=== PATIENT | female | born 1935 | race Caucasian/White ===

== ENCOUNTER → 2024-05-12 09:12 | Outpatient (REF) | payer MEDICARE, OTHER, SELFPAY ==
[2024-05-12 10:23] LABS: ALT (SGPT) 14 U/L (0-35); AST (SGOT) 24 U/L (14-36); Albumin 3.7 g/dl (3.5-5.0); Alkaline Phosphatase 99 U/L (38-126); Blood Urea Nitrogen 24 mg/dl (7-17); Calcium 8.9 mg/dl (8.4-10.2); Carbon Dioxide 29 mmol/L (22-30); Chloride 106 mmol/L (98-107); Glucose 136 mg/dl (70-99); HDL Cholesterol 46 mg/dl; LDL Cholesterol, Calculated 46 mg/dl; Potassium 4.3 mmol/L (3.5-5.1); Sodium 141 mmol/L (135-145); Total Bilirubin 1.1 mg/dl (0.2-1.3); Total Cholesterol 119 mg/dl (50-199); Total Protein 6.2 g/dl (6.3-8.2); Triglyceride 135 mg/dl (10-149); Very Low Density Lipoprotein 27 mg/dl (0-30); eGFR 48.94
[2024-05-12 10:44] LABS: Vitamin D, 25-OH*** 35.9 ng/mL (30-80)
[2024-05-12 10:52] LABS: TSH 1.42 uIU/ml (0.47-4.68)
[2024-05-12 11:14] LABS: Microalbumin, Random Urine 4.7 mg/dl (0.6-1.7); Microalbumin/creatinine Ratio 29.6 mg/g
[2024-05-13 10:51] LABS: Fructosamine 240 umol/L (205-285)
== END ==
LOC: REG 09:12
PROVIDERS: ATTENDING PHYSICIAN Internal Medicine; FAMILY PHYSICIAN Family Medicine
DX: E11.22 Type 2 diabetes mellitus with diabetic chronic kidney disease (principal); N18.31 Chronic kidney disease, stage 3a; E55.9 Vitamin D deficiency, unspecified
CPT/HCPCS: 36415; 80053; 80061; 82043; 82306; 82570; 82985; 83036; 84443

== ENCOUNTER → 2024-06-25 09:23 | Outpatient (REF) | payer MEDICARE, OTHER, SELFPAY ==
[2024-06-25 11:46] LABS: Blood Urea Nitrogen 23 mg/dl (7-17); Calcium 8.8 mg/dl (8.4-10.2); Carbon Dioxide 31 mmol/L (22-30); Chloride 104 mmol/L (98-107); Glucose 136 mg/dl (70-99); Potassium 4.5 mmol/L (3.5-5.1); Sodium 141 mmol/L (135-145); eGFR 44.08
[2024-06-25 12:15] LABS: TSH Reflex To Free T4 0.12 uIU/ml (0.47-4.68)
[2024-06-25 12:25] LABS: Glycohemoglobin (HgbA1c) 5.8 % (4.0-5.6)
[2024-06-25 12:43] LABS: Free T4 2.29 ng/dl (0.78-2.19)
[2024-06-25 13:41] LABS: Microalbumin, Random Urine <0.6 mg/dl (0.6-1.7)
== END ==
LOC: REG 09:23
PROVIDERS: ATTENDING PHYSICIAN Specialist; FAMILY PHYSICIAN Family Medicine
DX: N18.31 Chronic kidney disease, stage 3a (principal); E11.9 Type 2 diabetes mellitus without complications; E03.9 Hypothyroidism, unspecified
CPT/HCPCS: 36415; 80048; 82043; 82570; 83036; 84439; 84443

== ENCOUNTER 2024-07-01 10:56 | Emergency (ER) | payer MEDICARE, OTHER, SELFPAY ==
[2024-07-01 11:15] VITALS: BP 146/66
[2024-07-01 12:04] LABS: % Basophils 0.5 % (0-2); % Eosinophils 2.8 % (0-6); % Immature Granulocytes 0.2 % (0-0.5); % Lymphocytes 6.5 % (20.5-51.1); % Monocytes 8.6 % (1.7-9.3); % Neutrophils 81.4 % (42.2-75.2); Absolute Eosinophils 0.2 10^3/uL (0-0.7); Absolute Lymphocytes 0.5 10^3/uL (1.2-3.4); Absolute Monocytes 0.7 10^3/uL (0.1-0.6); Absolute Neutrophils 6.6 10^3/uL (1.4-6.5); Hematocrit 41.5 % (37.0-47.0); Hemoglobin 13.8 g/dL (12.0-16.0); Mean Corp Hgb Conc. 33.3 g/dL (33.0-37.0); Mean Corpuscular Hgb 31.2 pg (27.0-31.0); Mean Corpuscular Volume 93.9 fL (81.0-99.0); Mean Platelet Volume 9.1 fL (7.4-10.4); Nucleated Red Blood Cells % 0 %; Platelet Count 107 10^3/uL (130-400); Red Blood Cell Count 4.42 10^6/uL (4.20-5.40); Red Cell Dist. Width 13.6 % (11.5-14.5); White Blood Cell Count 8.2 10^3/uL (4.8-10.8)
[2024-07-01 12:24] LABS: ALT (SGPT) 14 U/L (0-35); AST (SGOT) 23 U/L (14-36); Albumin 3.7 g/dl (3.5-5.0); Alkaline Phosphatase 100 U/L (38-126); Blood Urea Nitrogen 20 mg/dl (7-17); Calcium 8.8 mg/dl (8.4-10.2); Carbon Dioxide 29 mmol/L (22-30); Chloride 106 mmol/L (98-107); Glucose 133 mg/dl (70-99); Potassium 4.2 mmol/L (3.5-5.1); Sodium 142 mmol/L (135-145); Total Bilirubin 1.4 mg/dl (0.2-1.3); Total Protein 6.1 g/dl (6.3-8.2); eGFR 54.87
[2024-07-01 12:28] LABS: Troponin I 0.033 ng/ml
--- NOTE | 2024-07-01 12:28 | ED.MUSCINJ ---
Addendum entered and electronically signed by Otf Singleton PA-C 07/04/24 08:05:
Urine culture with greater than 100,000 colony-forming units of E. coli. This is sensitive to ceftriaxone. Spoke with over the telephone. Sent GRIPTION to pharmacy for Omnicef 300 mg twice a day for a week.
Original Note:
HPI-Injury
General
Chief Complaint: Musculo-Skeletal Complaint
Source: patient
Exam Limitations: none
Time Seen by Provider: 07/01/24 12:14
Nursing documentation reviewed up to this point in time: agreed with
History of Present Illness-Injury
Is this injury a work related problem?: No
Is pt an associate of [facility]?: No
Initial Injury comments:
Patient to ED with complaint of BLE pain and burning. States she fell on Sunday PM while walking with walker around her bed. Denies hitting her head. SHe was unable to get self off floor so EMS was notified and she was assisted by them into bed.
SHe declined ED transfer at that time. States she woke Sunday with increased pain and burning to her legs. She was able to ambulate iwth walker and assistance from her husbannd. Symptoms became worse as the day progressed and now she feels like
she can not get herself up. No loss of sensation. No urinary symptoms. No saddle paresthesia. Brought to ED via EMS for eval. She has a history of chronic BLE pain but states this pain is much worse. Has had 3 lumbar surgeries in past, last
procedure was approx 3 years ago at [facility]. Follows with Dr. Rivera/pain management. Takes oxycodone 20mg TID but states this is now not helping. Reports left ant. chest pain since her fall. No SOB, n/v/diaphoresis. Pain does not radiate.
Past History
Past History
ED Past Medical History: COPD, HTN, Hypercholesterolemia, IDDM, Hypothyroidism, Other (Chronic kidney disease, Pancreatitis, Ileus, PSTV) and Other (Chronic lumbar radiculopathy, in pain management w/ Dr Dunaway)
ED Past Surgical History: Cholecystectomy, Orthopedic (Lumbar Laminectomy L3-5,) and Other (Only one kidney)
Social History
Tobacco: Former smoker
Alcohol: None
Personal:
Living: with family
Family History
Family History: Negative Diabetes, Hypertension or CAD
Review of Systems
Review of Systems
Allergies reviewed?: Yes
All Other Systems: ROS reviewed and negative except as documented in HPI and ROS
Constitutional: Reports no symptoms
EENT: Reports no symptoms
Respiratory: Reports no symptoms
Cardiac: Reports chest pain (reports CP since Sunday.)
ABD/GI: Reports no symptoms
: Reports no symptoms
Musculoskeletal: Reports joint pain (left knee swelling, BLE pain, left pelvic pain)
Skin: Reports no symptoms
Neurological: Reports weakness (BLE)
Psychiatric: Reports no symptoms
Musculoskeletal Injury Exam
Musculoskeletal Injury Exam
Bilateral Lower Leg:
Pain with Movement?: Moderate
Tender to palpation?: Moderate
Soft tissue swelling?: None
External deformity and angulation?: None
Joint effusion?: None
Contusion?: None
Hematoma-local bleeding into tissue?: None
Crepitus with movement?: No
Joint instability?: No
Malalignment/deformity?: No
Range of motion: Full
Distal skin color and temperature: normal-warm & good color
Capillary Refill: normal
Normal distal neurovascular exam?: Yes
Peripheral Pulses: posterior tibial (left): 3+, posterior tibial (right): 3+, dorsalis pedis (left): 3+ and dorsalis pedis (right): 3+
Phy Exam
General Physical Exam
General Presentation: well appearing and no apparent distress
General age: appears stated age
General Skin: warm and dry
General Habitus: normal
General Mental: alert
Musculoskeletal Exam
Musculoskeletal Exam: full ROM and neuro vasc intact
Skin Exam
Skin Exam: normal color, warm/dry and no rash
Psychiatric Exam
Psychiatric Exam: normal mood/affect
Injury Course
Orders/Labs/Results
Orders:
Orders
07/01/24 11:17
Electrocardiogram (*1) Urgent
Reason for Study: Other
Other Reason for Exam: fall
EKG- Treatment ONCE
07/01/24 11:56
Complete Blood Count/With Diff Urgent
Comprehensive Metabolic Panel Urgent
Troponin I Urgent
07/01/24 12:27
Dexamethasone Sod Phosphate [Decadron] 10 mg IV NOW STA
HYDROmorphone [Dilaudid] 0.5 mg IV NOW STA
Ondansetron Injectable [Zofran] 4 mg IV NOW STA
07/01/24 12:28
Knee, Left 4 or More Views [CR Knee - Left 4 Or More View*] Urgent
Comment:
Reason For Exam: fall
Lumbar Spine Complete, 4 View [CR Lumbar Spine Comp Min 4 Vw*] Urgent
Comment:
Reason For Exam: fall
Pelvis, 1 or 2 Views CR [CR Pelvis - 1 Or 2 Views ] Urgent
Comment:
Reason For Exam: fall
07/01/24 13:38
Hip, Left 2-3 Views [CR Hip - LT w/wo Pel 2-3 Vw*] Urgent
Comment:
Reason For Exam: fall
Include a pelvis x-ray?: No
07/01/24 13:45
Urinalysis Reflex To Culture Urgent
Date Specimen was Collected: 07/01/24
Time Specimen was Collected: 13:43
Urine Microscopic Reflex Cult Urgent
Urine Culture Urgent
TAHIR Source: U
Specimen Description:
Date Specimen was Collected: 07/01/24
Time Specimen was Collected: 13:43
Abnormal Lab Results
07/01/24 07/01/24
11:56 13:45
MCH 31.2 H pg
(27.0-31.0)
Plt Count 107 L 10^3/uL
(130-400)
Absolute Neuts (auto) 6.6 H 10^3/uL
(1.4-6.5)
Absolute Lymphs (auto) 0.5 L 10^3/uL
(1.2-3.4)
Absolute Monos (auto) 0.7 H 10^3/uL
(0.1-0.6)
Neutrophils % 81.4 H %
(42.2-75.2)
Lymphocytes % 6.5 L %
(20.5-51.1)
BUN 20 H mg/dl
(7-17)
Glucose 133 H mg/dl
(70-99)
Total Bilirubin 1.4 H mg/dl
(0.2-1.3)
Total Protein 6.1 L g/dl
(6.3-8.2)
Leukocyte Esterase Rfl Trace A
(Negative)
Urine Bacteria (Reflex) Many A
(Negative)
07/01/24 11:56
07/01/24 11:56
*Radiology
Radiology exam reviewed: radiology read reviewed
*Pulse Oximetry
Patient hypoxic: no
*Critical Care Note
Total Time (30-74mins, 75-104mins- exclusive of procedures): Not Applicable
Update Note
Update Note:
Improved iwth IV pain medication. Bandar to get self up own. Will discharge home. SHe will follow up with pain management in the AM
ED Attending Note
-
Portions of this chart may have been created with voice recognition software.� Occasional wrong word or��sound alike� substitutions may have occurred due to the inherent limitations of voice recognition software.
Discharge Plan
Departure
Patient Disposition: Home (Routine Discharge)
Date of Disposition: 08/27/24
Time of Disposition: 15:39
Patient with high blood pressure during this ER visit?: No
Condition: Good
Covid-19: Not Applicable
Discharge Problem:
Low back pain, Chronic leg pain
Instructions: Using Cold for Pain, Musculoskeletal Pain
Prescriptions:
New
hydromorphone [Dilaudid] 2 mg tablet
2 mg PO Q6H PRN (Reason: Pain) Qty: 7 0RF
No Action
cyclosporine [Restasis] 10 DROPS dropperette
1 drp BOTH EYES BID
carvedilol 12.5 MG tablet
25 mg PO BID
furosemide 20 MG tablet
40 mg PO DAILY
atorvastatin 40 MG tablet
40 mg PO QPM
aspirin 81 MG tablet,chewable
81 mg PO DAILY
multivitamin with folic acid [Tab-A-Isa] 1 TABLET tablet
1 tab PO DAILY
levothyroxine [Synthroid] 150 mcg Tablet
150 mcg PO MOTUWETHFRSA
levothyroxine [Synthroid] 150 mcg Tablet
225 mcg PO NEWTON
glipizide 5 mg Tablet
5 mg PO DAILY
oxycodone 20 mg Tablet
20 mg PO Q6H PRN (Reason: as needed)
cholecalciferol (vitamin D3) [Vitamin D3] 25 mcg (1,000 unit) Capsule
25 mcg PO DAILY
duloxetine [Cymbalta] 20 mg Capsule,Delayed Release(Dr/Ec)
20 - 60 mg PO HS
polyethylene glycol 3350 17 gram Powder In Packet
17 g PO DAILY Qty: 30 0RF
sucralfate 100 mg/mL Suspension
1 gm PO ACHS Qty: 300 0RF
famotidine 20 mg Tablet
20 mg PO HS Qty: 30 0RF
amoxicillin-pot clavulanate 875-125 mg tablet
1 tab PO Q12H 8 Days Qty: 16 0RF
Referrals:
Chyna Nichols DO [Family Provider] -
Janak Rivera MD [Non-Admitting Privileges] - Tomorrow
Interventions
Interventions:
*Risk Screen - Suicide Last Done: 07/01/24 11:15
*General Assessment Last Done: 07/01/24 11:15
*Neglect/Abuse Screening Last Done: 07/01/24 11:15
ED- Fall Risk Assessment Last Done: 07/01/24 16:13
*ED COVID-19 Vaccine History Last Done: 07/01/24 11:51
*Nursing Disposition Last Done: 07/01/24 16:13
ED- Cardiac Assessment Last Done: 07/01/24 11:56
ED-Musculoskeletal Assessment Last Done: 07/01/24 11:56
ED- Pulmonary Assessment Last Done: 07/01/24 11:56
Discharge Date and Time
Discharge Date/Time: 07/01/24 16:14
Print Language: ROMANIAN
[2024-07-01] MEDS: DECADRON 10 MG IV (12:34)
[2024-07-01] MEDS: ZOFRAN 4 MG IV (12:34)
[2024-07-01] MEDS: DILAUDID 0.5 MG IV (12:34)
[2024-07-01 13:04] VITALS: BP 164/64
[2024-07-01 14:14] LABS: Urine Albumin Negative (Neg - Trace); Urine Bilirubin Negative (Negative); Urine Character Clear (Clear); Urine Color Yellow; Urine Glucose Negative (Negative); Urine Ketone Negative (Negative); Urine Leukocyte Trace (Negative); Urine Nitrite Negative (Negative); Urine Occult Blood Negative (Negative); Urine Urobilinogen Negative (Neg - 1+); Urine pH 6.5 (5.0-9.0)
[2024-07-01 15:10] LABS: Urine Squamous Cell 16-20 /LPF (Few)
[2024-07-01 15:11] LABS: Urine Amorphous Seen; Urine Bacteria Many (Negative); Urine Red Blood Cell 0-2 /HPF (0-2)
[2024-07-01 15:57] VITALS: BP 167/77
== END 2024-07-01 16:14 | disposition home or self-care (01) ==
LOC: EMR 10:56
PROVIDERS: Nurse Practitioner; EMERGENCY PHYSICIAN Emergency Medicine; FAMILY PHYSICIAN Family Medicine
DX: G89.29 Other chronic pain (principal); M54.50 Low back pain, unspecified; M79.605 Pain in left leg; M79.604 Pain in right leg; W19.XXXA Unspecified fall, initial encounter; J44.9 Chronic obstructive pulmonary disease, unspecified; E11.22 Type 2 diabetes mellitus with diabetic chronic kidney disease; I12.9 Hypertensive chronic kidney disease with stage 1 through stage 4 chronic kidney disease, or unspecified chronic kidney disease; N18.9 Chronic kidney disease, unspecified; E03.9 Hypothyroidism, unspecified; E78.00 Pure hypercholesterolemia, unspecified; Z87.891 Personal history of nicotine dependence; Z90.49 Acquired absence of other specified parts of digestive tract
CPT/HCPCS: 99283; 72110; 72170; 73502; 73564; 80053; 81003; 81015; 84484; 85025; 87077; 87086; 87186; 93005

== ENCOUNTER 2024-09-25 09:51 | Emergency (ER) | payer MEDICARE, OTHER, SELFPAY ==
[2024-09-25 09:56] VITALS: BP 145/52
[2024-09-25 09:58] VITALS: BP 145/52; BMI 30.7
[2024-09-25] MEDS: DILAUDID 1 MG IM (10:46)
--- NOTE | 2024-09-25 10:46 | ED.GENMED ---
History of Present Illness
<Noe Sanders DO - Last Filed: 09/25/24 10:47>
General
Chief Complaint: Fall
Time Seen by Provider: 09/25/24 10:14
<Alia Green PA-C - Last Filed: 09/25/24 15:55>
General
Source: patient and family
Exam Limitations: none
Nursing documentation reviewed up to this point in time: agreed with
History of Present Illness
History of Present Illness:
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
htn ,hld, [place], NIDDM
here with 'whole body pain' after falling last night around 11 pm when she was in the shower. she says she tripped on the lip that is on the ground on her way into the shower and landed 'like a pretzel' on her bottom with her legs under her. she had
no LOC or head strike
she was unable to get hersel fup but her son picked her up and put her in bed
chrnoicaly she can walk only short distances
She mostly complains of lower back pain and and around her hips and pelvis and into her legs which is again the distribution of her chronic pain. She also has had some chronic swelling in the left leg specifically the knee and has seen her family
doctor for this. She actually was here in June after a trip and fall as well where she had similar complaints of her leg and back pain. She received IV pain medication and improved and was able to go home. Patient did say that she took her
oxycodone this morning which she takes every 4 hours, 20 mg. She is found over time that she has had to even take more than she is recommended because it does not seem to work as of well. She is not having any new leg weakness or incontinence,
headache or chills, neck pain since a fall
Past History
<Noe Sanders DO - Last Filed: 09/25/24 10:47>
Past History
ED Past Medical History: COPD, HTN, Hypercholesterolemia, IDDM, Hypothyroidism, Other (Chronic kidney disease, Pancreatitis, Ileus, PSTV) and Other (Chronic lumbar radiculopathy, in pain management w/ Dr Dunaway)
ED Past Surgical History: Cholecystectomy, Orthopedic (Lumbar Laminectomy L3-5,) and Other (Only one kidney)
Social History
Tobacco: Former smoker
Alcohol: None
Personal:
Living: with family
Family History
Family History: Negative Diabetes, Hypertension or CAD
Review of Systems
<Alia Green PA-C - Last Filed: 09/25/24 15:55>
Review of Systems
Allergies reviewed?: Yes
All Other Systems: Not applicable
Phy Exam
<Alia Green PA-C - Last Filed: 09/25/24 15:55>
Physical Exam
Physical Exam:
GENERAL: Alert , in no apparent distress
HEAD: NCAT
NECK: no midline tenderness, active ROM intact, no paraspinal muscle tenderness;
EYE: pupils equal and reactive, EOMs intact.
CARDIAC: Regular rate and rhythm, no edema
LUNGS: Clear breath sounds bilaterally, no acute respiratory distress, no wheezes/rales/rhonchi
ABDOMEN: Soft, ecchymosis left upper quadrant which is about 3 x 2 cm and nontender without focal tenderness, no r/g, no cvat
NEUROLOGICAL: Alert and oriented, no focal neuro deficits, CN intact, 5/5 strength, sensation intact
SKIN: Warm and dry, Small area of ecchymosis left upper abdomen, completely nontender
Back: Prior surgical incisions closed, no midline tenderness, some pain with flexion and extension, negative straight leg raise
Can move both hips, seems to have mild pain with hip flexion and rotation but able to do so
MUSCULOSKELETAL: Mild bilateral edema lower extremities left greater than right, also with maybe an effusion in her left knee or osteoarthritis changes, no erythema, no wound
PSYCH: Normal and appropriate interaction.
Course
<Noe Sanders DO - Last Filed: 09/25/24 10:47>
Orders/Labs/Results
Orders:
Orders
09/25/24 10:37
HYDROmorphone [Dilaudid] 1 mg IM NOW STA
CR Knee - Left 1 Or 2 Views Urgent
Reason For Exam: fall left knee swellig
CR Lumbar Spine 2 Or 3 Views Urgent
Reason For Exam: lower back pain after fall
Hips, Bilat 3-4 view W/AP Pelvis [CR Hips VI w/wo Pel 3-4 Vw] Urgent
Comment:
Reason For Exam: fall b/l hip and pevic pain
Include a pelvis x-ray?: Yes
Vital Signs
Initial and Last Documented VS:
Initial Vital Signs
BP
145/52
09/25/24 09:56
Last Documented Vital Signs
Temp Pulse Resp BP Pulse Ox
37.1 C 53 15 144/52 90
09/25/24 09:58 09/25/24 12:15 09/25/24 12:15 09/25/24 12:00 09/25/24 12:15
<Alia Green PA-C - Last Filed: 09/25/24 15:55>
Orders/Labs/Results
Orders:
Orders
09/25/24 10:37
HYDROmorphone [Dilaudid] 1 mg IM NOW STA
CR Knee - Left 1 Or 2 Views Urgent
Reason For Exam: fall left knee swellig
CR Lumbar Spine 2 Or 3 Views Urgent
Reason For Exam: lower back pain after fall
Hips, Bilat 3-4 view W/AP Pelvis [CR Hips VI w/wo Pel 3-4 Vw] Urgent
Comment:
Reason For Exam: fall b/l hip and pevic pain
Include a pelvis x-ray?: Yes
Vital Signs
Initial and Last Documented VS:
Initial Vital Signs
BP
145/52
09/25/24 09:56
Last Documented Vital Signs
Temp Pulse Resp BP Pulse Ox
37.1 C 53 15 144/52 90
09/25/24 09:58 09/25/24 12:15 09/25/24 12:15 09/25/24 12:00 09/25/24 12:15
<Alia Green PA-C - Last Filed: 09/25/24 15:55>
MDM/Problems Addressed
Differential Diagnosis Includes:
Arthritis, contusion, strain, fracture, arthritis, chronic pain
MDM/Problems Addressed:
88-year-old female with chronic pain on opiates presents for lower back pain wrapping around her hips and down her legs which is a chronic distribution after falling yesterday. It was a mechanical fall. She did not hit her head. She is not
anticoagulated. She was able to be helped up by her son and walked a little bit to the bed. She said this morning her pain was not controlled with her normal oxycodone so her family called 911. She minimally walks at baseline. Initially saying
to me she is not going to be able to walk however she has strength in her legs, sensations intact, able to range her hips fairly well. There was 1 area of this ecchymosis in her left upper quadrant which was completely nontender, she had no rib
tenderness. She was assessed by ED attending. It seems like a low mechanism for splenic injury and I think that the bruising is just soft tissue. He agreed. Patient was x-rayed with lumbar and hip and knee x-rays. She has prior surgical back
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 After an IM shot of Dilaudid she was able to walk unassisted with her walker to the bathroom and back.
This is at her baseline. She will be discharged home
<Alia Green PA-C - Last Filed: 09/25/24 15:55>
*Critical Care Note
Total Time (30-74mins, 75-104mins- exclusive of procedures): Not Applicable
ED Attending Note
<Noe Piter Sanders DO - Last Filed: 09/25/24 10:47>
ED Attending Note
Patient seen and examined by attending physician: Yes
I performed the substantive portion of visit, reviewed & personally made and approve the management plan that is documented in note by myself or KENNETH.: Yes
ED Attending Note:
I evaluated the patient at bedside. Although there is a focal area of ecchymosis in the left upper quadrant, she has no abdominal tenderness. She does have left greater than right lower extremity edema for which she was supposed to see lymphedema
clinic. After the fall, the pain in her back and lower extremities has worsened.
-
Portions of this chart may have been created with voice recognition software.� Occasional wrong word or��sound alike� substitutions may have occurred due to the inherent limitations of voice recognition software.
Discharge Plan
Departure
Patient Disposition: Home (Routine Discharge)
Date of Disposition: 09/25/24
Time of Disposition: 13:09
Patient with high blood pressure during this ER visit?: No
Condition: Fair
Covid-19: Not Applicable
Discharge Problem:
Fall, Chronic pain
Instructions: Low Back Pain (DC), Preventing falls in adults
Prescriptions:
No Action
cyclosporine [Restasis] 10 DROPS dropperette
1 drp BOTH EYES BID
carvedilol 12.5 MG tablet
25 mg PO BID
furosemide 20 MG tablet
40 mg PO DAILY
atorvastatin 40 MG tablet
40 mg PO QPM
aspirin 81 MG tablet,chewable
81 mg PO DAILY
multivitamin with folic acid [Tab-A-Isa] 1 TABLET tablet
1 tab PO DAILY
levothyroxine [Synthroid] 150 mcg Tablet
150 mcg PO MOTUWETHFRSA
levothyroxine [Synthroid] 150 mcg Tablet
225 mcg PO NEWTON
glipizide 5 mg Tablet
5 mg PO DAILY
oxycodone 20 mg Tablet
20 mg PO Q6H PRN (Reason: as needed)
cholecalciferol (vitamin D3) [Vitamin D3] 25 mcg (1,000 unit) Capsule
25 mcg PO DAILY
duloxetine [Cymbalta] 20 mg Capsule,Delayed Release(Dr/Ec)
20 - 60 mg PO HS
polyethylene glycol 3350 17 gram Powder In Packet
17 g PO DAILY Qty: 30 0RF
sucralfate 100 mg/mL Suspension
1 gm PO ACHS Qty: 300 0RF
famotidine 20 mg Tablet
20 mg PO HS Qty: 30 0RF
amoxicillin-pot clavulanate 875-125 mg tablet
1 tab PO Q12H 8 Days Qty: 16 0RF
hydromorphone [Dilaudid] 2 mg tablet
2 mg PO Q6H PRN (Reason: Pain) Qty: 7 0RF
cefdinir 300 mg capsule
300 mg PO BID Qty: 14 0RF
Referrals:
Chyna Nichols, [Family Provider] - Follow up in 2-3 days
Activity Restrictions/Additional Instructions:
YOU HAD A FALL BUT NO SIGNS OF SIGNIFICANT TRAUMA. YOUR XRAYS SHOW ARTHRITIC CHANGES WITHOUT FRACTURE
CONTINUE YOUR PAIN MEDICATIONS PRESCRIBED
USE YOUR WALKER
RETURN FOR ANY EMERGENCIES.
Interventions
Interventions:
*Risk Screen - Suicide Last Done: 09/25/24 09:58
*General Assessment Last Done: 09/25/24 09:58
*Neglect/Abuse Screening Last Done: 09/25/24 09:58
ED- Fall Risk Assessment Last Done: 09/25/24 09:58
*ED COVID-19 Vaccine History Last Done: 09/25/24 09:58
*Nursing Disposition Last Done: 09/25/24 13:25
ED-Musculoskeletal Assessment Last Done: 09/25/24 09:58
ED- Neurological Assessment Last Done: 09/25/24 09:58
ED-Skin Assessment Last Done: 09/25/24 09:58
Discharge Date and Time
Discharge Date/Time: 09/25/24 13:25
Print Language: TURKISH
[2024-09-25 11:19] VITALS: BP 162/62
[2024-09-25 12:00] VITALS: BP 144/52
== END 2024-09-25 13:25 | disposition home or self-care (01) ==
LOC: EMR 09:51
PROVIDERS: EMERGENCY PHYSICIAN Emergency Medicine; FAMILY PHYSICIAN Family Medicine
DX: G89.29 Other chronic pain (principal); W01.0XXA Fall on same level from slipping, tripping and stumbling without subsequent striking against object, initial encounter; I12.9 Hypertensive chronic kidney disease with stage 1 through stage 4 chronic kidney disease, or unspecified chronic kidney disease; E11.22 Type 2 diabetes mellitus with diabetic chronic kidney disease; N18.9 Chronic kidney disease, unspecified; E78.00 Pure hypercholesterolemia, unspecified; I25.2 Old myocardial infarction; E03.9 Hypothyroidism, unspecified; J44.9 Chronic obstructive pulmonary disease, unspecified; Z79.891 Long term (current) use of opiate analgesic; Z87.891 Personal history of nicotine dependence; Z90.49 Acquired absence of other specified parts of digestive tract
CPT/HCPCS: 99283; 96372; 72100; 73522; 73560

== ENCOUNTER 2024-11-04 07:24 | Outpatient (RCR) | payer MEDICARE, OTHER, SELFPAY | END 2024-11-04 23:59 | disposition home or self-care (01) | LOC: RPT 07:24 | PROVIDERS: ATTENDING PHYSICIAN Family Medicine | DX: I89.0 Lymphedema, not elsewhere classified (principal); Z73.6 Limitation of activities due to disability | CPT/HCPCS: 97163; 97530; 97760 ==

== ENCOUNTER 2024-12-03 11:15 | Outpatient (RCR) | payer MEDICARE, OTHER, SELFPAY | END 2024-12-03 12:08 | disposition home or self-care (01) | LOC: RPT 11:15 | PROVIDERS: ATTENDING PHYSICIAN Family Medicine | DX: I89.0 Lymphedema, not elsewhere classified (principal); Z73.6 Limitation of activities due to disability; R26.89 Other abnormalities of gait and mobility | CPT/HCPCS: 97140; 97530 ==

== ENCOUNTER 2025-01-03 09:52 | Emergency (ER) | payer MEDICARE, OTHER, SELFPAY ==
[2025-01-03] VITALS (7 sets, daily range): BP systolic 134–204; BP diastolic 51–82; BMI 31.6
--- NOTE | 2025-01-03 10:16 | ED.GENMED ---
History of Present Illness
<AMY Irvin - Last Filed: 01/04/25 21:05>
General
Chief Complaint: Chest Pain
Source: patient
Exam Limitations: none
Time Seen by Provider: 01/03/25 10:14
Nursing documentation reviewed up to this point in time: agreed with
History of Present Illness
History of Present Illness:
Patient is an 89-year-old female who presents to the ER for evaluation of intermittent chest pressure for the past several days associate with exertion. Today however she was short of breath with symptoms which is why she presented to the ER. She
is a patient of Dr. Westbrook of cardiology.
Past History
<AMY Irvin - Last Filed: 01/04/25 21:05>
Past History
ED Past Medical History: COPD, HTN, Hypercholesterolemia, IDDM, Hypothyroidism, Other (Chronic kidney disease, Pancreatitis, Ileus, PSTV) and Other (Chronic lumbar radiculopathy, in pain management w/ Dr Dunaway)
ED Past Surgical History: Cholecystectomy, Orthopedic (Lumbar Laminectomy L3-5,) and Other (Only one kidney)
Social History
Tobacco: Former smoker
Alcohol: None
Personal:
Living: with family
Family History
Family History: Negative Diabetes, Hypertension or CAD
Review of Systems
<AMY Irvin - Last Filed: 01/04/25 21:05>
Review of Systems
Allergies reviewed?: Yes
All Other Systems: ROS reviewed and negative except as documented in HPI and ROS
Constitutional: Reports no symptoms
Respiratory: Reports trouble breathing; Denies cough
Cardiac: Reports chest pain; Denies diaphoresis, palpitations or syncope
ABD/GI: Reports no symptoms
: Reports no symptoms
Musculoskeletal: Reports no symptoms
Skin: Reports no symptoms
Neurological: Reports no symptoms
Psychiatric: Reports no symptoms
Phy Exam
<AMY Irvin - Last Filed: 01/04/25 21:05>
General Physical Exam
General Presentation: no apparent distress
General age: appears stated age
General Skin: warm and dry
General Habitus: normal
General Hydration: appears well hydrated
Neurological Exam
Neurological Exam: alert and oriented x3
Musculoskeletal Exam
Musculoskeletal Exam: full ROM
Skin Exam
Skin Exam: normal color and warm/dry
Psychiatric Exam
Psychiatric Exam: normal mood/affect
Scores
<AMY Irvin - Last Filed: 01/04/25 21:05>
Heart Score for Chest Pain Patients
STEMI patient?: Not applicable
Course
<AMY Irvin - Last Filed: 01/04/25 21:05>
Orders/Labs/Results
Orders:
Orders
01/03/25 09:52
EKG [Electrocardiogram (*1)] Urgent
Reason for Study: Chest Pain
01/03/25 09:53
EKG- Treatment ONCE
01/03/25 10:25
IV Insert/Care/Rem.- Treatment PRN
01/03/25 10:26
Cardiac Monitoring- Treatment ONCE
CR Chest - 2 Views Urgent
Comment:
Reason For Exam: cp/sob
01/03/25 10:29
Complete Blood Count/With Diff Urgent
Comprehensive Metabolic Panel Urgent
NT-proBNP Urgent
Troponin I Urgent
01/03/25 12:49
Venous Doppler Lwr Ext Bilat [US Periph Venous LOWER Ext Derrick] Urgent
Comment:
Reason For Exam: swelling
01/03/25 13:33
DDimer [D-Dimer] Urgent
Troponin I Urgent
01/03/25 15:07
CT Chest PE Study Urgent
Comment:
Reason For Exam: sob/cp
Abnormal Lab Results
01/03/25 01/03/25
10:29 13:33
MCHC 32.1 L g/dL
(33.0-37.0)
Plt Count 105 L 10^3/uL
(130-400)
Absolute Lymphs (auto) 0.5 L 10^3/uL
(1.2-3.4)
Neutrophils % 83.1 H %
(42.2-75.2)
Lymphocytes % 7.3 L %
(20.5-51.1)
D-Dimer 1.69 H ug/mlFEU
(0.00-0.50)
BUN 23 H mg/dl
(7-17)
Creatinine 1.2 H mg/dL
(0.6-1.0)
Glucose 229 H mg/dl
(70-99)
Total Protein 5.9 L g/dl
(6.3-8.2)
Albumin 3.4 L g/dl
(3.5-5.0)
01/03/25 10:29
01/03/25 10:29
Vital Signs
Initial and Last Documented VS:
Initial Vital Signs
Temp Pulse Resp BP Pulse Ox
98.4 F 64 16 145/54 95
01/03/25 10:00 01/03/25 10:00 01/03/25 10:00 01/03/25 10:00 01/03/25 10:00
Last Documented Vital Signs
Temp Pulse Resp BP Pulse Ox
98.4 F 61 16 180/62 95
01/03/25 10:00 01/03/25 16:30 01/03/25 16:30 01/03/25 16:00 01/03/25 10:00
<Victor Hugo West MD - Last Filed: 01/03/25 13:23>
Orders/Labs/Results
Orders:
Orders
01/03/25 09:52
EKG [Electrocardiogram (*1)] Urgent
Reason for Study: Chest Pain
01/03/25 09:53
EKG- Treatment ONCE
01/03/25 10:25
IV Insert/Care/Rem.- Treatment PRN
01/03/25 10:26
Cardiac Monitoring- Treatment ONCE
CR Chest - 2 Views Urgent
Comment:
Reason For Exam: cp/sob
01/03/25 10:29
Complete Blood Count/With Diff Urgent
Comprehensive Metabolic Panel Urgent
NT-proBNP Urgent
Troponin I Urgent
01/03/25 12:49
Venous Doppler Lwr Ext Bilat [US Periph Venous LOWER Ext Derrick] Urgent
Comment:
Reason For Exam: swelling
01/03/25 13:33
DDimer [D-Dimer] Urgent
Troponin I Urgent
01/03/25 15:07
CT Chest PE Study Urgent
Comment:
Reason For Exam: sob/cp
Abnormal Lab Results
01/03/25 01/03/25
10:29 13:33
MCHC 32.1 L g/dL
(33.0-37.0)
Plt Count 105 L 10^3/uL
(130-400)
Absolute Lymphs (auto) 0.5 L 10^3/uL
(1.2-3.4)
Neutrophils % 83.1 H %
(42.2-75.2)
Lymphocytes % 7.3 L %
(20.5-51.1)
D-Dimer 1.69 H ug/mlFEU
(0.00-0.50)
BUN 23 H mg/dl
(7-17)
Creatinine 1.2 H mg/dL
(0.6-1.0)
Glucose 229 H mg/dl
(70-99)
Total Protein 5.9 L g/dl
(6.3-8.2)
Albumin 3.4 L g/dl
(3.5-5.0)
01/03/25 10:29
01/03/25 10:29
Vital Signs
Initial and Last Documented VS:
Initial Vital Signs
Temp Pulse Resp BP Pulse Ox
98.4 F 64 16 145/54 95
01/03/25 10:00 01/03/25 10:00 01/03/25 10:00 01/03/25 10:00 01/03/25 10:00
Last Documented Vital Signs
Temp Pulse Resp BP Pulse Ox
98.4 F 61 16 180/62 95
01/03/25 10:00 01/03/25 16:30 01/03/25 16:30 01/03/25 16:00 01/03/25 10:00
<AMY Irvin - Last Filed: 01/04/25 21:05>
MDM/Problems Addressed
MDM/Problems Addressed:
Patient is a 89-year-old female who presented with intermittent chest pain for the past several days and had some shortness of breath this morning which prompted patient to come to the ER. Patient had a cardiac cath in 2021 which showed
nonobstructive coronary artery disease and was to continue medical management. She is followed by Dr. Westbrook, RCA showed 60% proximal stenosis and diffuse 30-40% mid stenosis. The mid to distal RCA is widely patent with only minor irregularities.
Patient presents awake alert no acute distress she was afebrile with a normal white count ;stable hemoglobin normal cardiac troponin. Patient's BNP was minimally elevated however no history of heart failure.
Patient evaluated by ED physician D-dimer ordered and elevated. CAT scan was done and unfortunately does show suspicious right middle lobe mass along with suspicious mass in the left lung apex with right hilar and mediastinal lymphadenopathy.
Likely suggestive of malignancy. There is negative PE. I did review this with patient and she is stable for discharge home with outpatient followed by oncology. In addition as discussed with physician will DC on chest pain hotline.
<AMY Irvin - Last Filed: 01/04/25 21:05>
*Radiology
Radiology exam reviewed: radiology read reviewed
*Pulse Oximetry
Patient hypoxic: no
*EKG
Interpretation: normal
Heart Rate: 63
Rate: normal
Rhythm: sinus
Ischemia: no ischemia
*Critical Care Note
Total Time (30-74mins, 75-104mins- exclusive of procedures): Not Applicable
ED Attending Note
<AMY Irvin - Last Filed: 01/04/25 21:05>
-
Portions of this chart may have been created with voice recognition software.� Occasional wrong word or��sound alike� substitutions may have occurred due to the inherent limitations of voice recognition software.
<Victor Hugo West MD - Last Filed: 01/03/25 13:23>
ED Attending Note
Patient seen and examined by attending physician: Yes
I performed the substantive portion of visit, reviewed & personally made and approve the management plan that is documented in note by myself or KENNETH.: Yes
ED Attending Note:
89-year-old female complaining of some chest tightness and some shortness of breath this morning. She gets this on almost a daily basis for the last few months. However today's episode was prolonged. Minimal symptoms at this time. History of
CAD. Followed by cardiology. She thinks she has had a stress test recently that was unremarkable.
Alert and oriented. No distress. Warm and dry. Perfusing well.
Heart: Regular rate and rhythm.
Lungs: No respiratory distress. Good pulse ox. A few crackles in the base of the lungs. No wheezing or rhonchi
Abdomen soft and nontender
Extremities: Warm and dry perfusing well. No significant edema
Impression is intermittent chest tightness with shortness of breath. Is been going on for months. Followed by cardiology. Slightly more significant symptoms this morning although comfortable at this time. Will do second troponin and EKG and if
patient remains comfortable reasonable for outpatient follow-up. Also will check D-dimer. Low suspicion for PE. Clinically not in any florid heart failure.
Discharge Plan
Departure
Patient Disposition: Home (Routine Discharge)
Date of Disposition: 01/03/25
Time of Disposition: 16:46
Patient with high blood pressure during this ER visit?: Yes
Condition: Fair
Covid-19: Not Applicable
Discharge Problem:
Chest pain
Instructions: Chest Pain DCA Follow Up
Prescriptions:
No Action
cyclosporine [Restasis] 10 DROPS dropperette
1 drp BOTH EYES BID
carvedilol 12.5 MG tablet
25 mg PO BID
furosemide 20 MG tablet
40 mg PO DAILY
atorvastatin 40 MG tablet
40 mg PO QPM
aspirin 81 MG tablet,chewable
81 mg PO DAILY
multivitamin with folic acid [Tab-A-Isa] 1 TABLET tablet
1 tab PO DAILY
levothyroxine [Synthroid] 150 mcg Tablet
150 mcg PO MOTUWETHFRSA
levothyroxine [Synthroid] 150 mcg Tablet
225 mcg PO NEWTON
glipizide 5 mg Tablet
5 mg PO DAILY
oxycodone 20 mg Tablet
20 mg PO Q6H PRN (Reason: as needed)
cholecalciferol (vitamin D3) [Vitamin D3] 25 mcg (1,000 unit) Capsule
25 mcg PO DAILY
duloxetine [Cymbalta] 20 mg Capsule,Delayed Release(Dr/Ec)
20 - 60 mg PO HS
polyethylene glycol 3350 17 gram Powder In Packet
17 g PO DAILY Qty: 30 0RF
sucralfate 100 mg/mL Suspension
1 gm PO ACHS Qty: 300 0RF
famotidine 20 mg Tablet
20 mg PO HS Qty: 30 0RF
amoxicillin-pot clavulanate 875-125 mg tablet
1 tab PO Q12H 8 Days Qty: 16 0RF
hydromorphone [Dilaudid] 2 mg tablet
2 mg PO Q6H PRN (Reason: Pain) Qty: 7 0RF
cefdinir 300 mg capsule
300 mg PO BID Qty: 14 0RF
Referrals:
Theodore Westbrook MD [Active] -
Kimberly Florian MD [Active] -
Chyna Nichols DO [Family Provider] -
Activity Restrictions/Additional Instructions:
As discussed please follow-up with oncology for further evaluation of lung mass found on your CAT scan. In addition please follow-up with cardiology.
You were placed on the cardiology hotline .
you should receive a phone call from the office in the next 2 days however if not please give the office a call to schedule an appointment as soon as possible.
Return if any worsening of symptoms
Interventions
Interventions:
*Risk Screen - Suicide Last Done: 01/03/25 10:01
*General Assessment Last Done: 01/03/25 10:20
*Neglect/Abuse Screening Last Done: 01/03/25 10:01
ED- Fall Risk Assessment Last Done: 01/03/25 10:36
*ED COVID-19 Vaccine History Last Done: 01/03/25 10:20
*Nursing Disposition Last Done: 01/03/25 17:02
ED- Cardiac Assessment Last Done: 01/03/25 10:20
Discharge Date and Time
Discharge Date/Time: 01/03/25 16:56
Print Language: ROMANIAN
[2025-01-03 10:41] LABS: % Basophils 0.4 % (0-2); % Eosinophils 1.7 % (0-6); % Immature Granulocytes 0.3 % (0-0.5); % Lymphocytes 7.3 % (20.5-51.1); % Monocytes 7.2 % (1.7-9.3); % Neutrophils 83.1 % (42.2-75.2); Absolute Eosinophils 0.1 10^3/uL (0-0.7); Absolute Lymphocytes 0.5 10^3/uL (1.2-3.4); Absolute Monocytes 0.5 10^3/uL (0.1-0.6); Absolute Neutrophils 5.9 10^3/uL (1.4-6.5); Hematocrit 42.4 % (37.0-47.0); Hemoglobin 13.6 g/dL (12.0-16.0); Mean Corp Hgb Conc. 32.1 g/dL (33.0-37.0); Mean Corpuscular Hgb 30.6 pg (27.0-31.0); Mean Corpuscular Volume 95.3 fL (81.0-99.0); Mean Platelet Volume 8.9 fL (7.4-10.4); Nucleated Red Blood Cells % 0 %; Platelet Count 105 10^3/uL (130-400); Red Blood Cell Count 4.45 10^6/uL (4.20-5.40); Red Cell Dist. Width 14.2 % (11.5-14.5); White Blood Cell Count 7.1 10^3/uL (4.8-10.8)
[2025-01-03 10:48] LABS: ALT (SGPT) 16 U/L (0-35); AST (SGOT) 22 U/L (14-36); Albumin 3.4 g/dl (3.5-5.0); Alkaline Phosphatase 99 U/L (38-126); Blood Urea Nitrogen 23 mg/dl (7-17); Calcium 8.5 mg/dl (8.4-10.2); Carbon Dioxide 29 mmol/L (22-30); Chloride 105 mmol/L (98-107); Estimated Creatinine Clearance 37 ml/min; Glucose 229 mg/dl (70-99); Potassium 4.2 mmol/L (3.5-5.1); Sodium 140 mmol/L (135-145); Total Bilirubin 1.3 mg/dl (0.2-1.3); Total Protein 5.9 g/dl (6.3-8.2); eGFR 43.81
[2025-01-03 10:59] LABS: NT-proBNP 2360 pg/ml; Troponin I < 0.012 ng/ml
[2025-01-03 14:18] LABS: D-Dimer 1.69 ug/mlFEU (0.00-0.50)
[2025-01-03 14:29] LABS: Troponin I < 0.012 ng/ml
== END 2025-01-03 16:56 | disposition home or self-care (01) ==
LOC: EMR 09:52
PROVIDERS: Nurse Practitioner; EMERGENCY PHYSICIAN Emergency Medicine; FAMILY PHYSICIAN Family Medicine
DX: R07.89 Other chest pain (principal); J44.9 Chronic obstructive pulmonary disease, unspecified; I12.9 Hypertensive chronic kidney disease with stage 1 through stage 4 chronic kidney disease, or unspecified chronic kidney disease; E11.22 Type 2 diabetes mellitus with diabetic chronic kidney disease; N18.9 Chronic kidney disease, unspecified; R06.02 Shortness of breath; E03.9 Hypothyroidism, unspecified; E78.00 Pure hypercholesterolemia, unspecified; I25.10 Atherosclerotic heart disease of native coronary artery without angina pectoris; Z79.4 Long term (current) use of insulin; Z87.891 Personal history of nicotine dependence; R91.8 Other nonspecific abnormal finding of lung field
CPT/HCPCS: 99285; 71046; 71275; 80053; 83880; 84484; 85025; 85379; 93005; 93970; Q9967

== ENCOUNTER → 2025-01-21 09:35 | Outpatient (REF) | payer MEDICARE, OTHER, SELFPAY ==
[2025-01-21 13:15] LABS: Blood Urea Nitrogen 24 mg/dl (7-17); Calcium 8.8 mg/dl (8.4-10.2); Carbon Dioxide 30 mmol/L (22-30); Chloride 104 mmol/L (98-107); Glucose 147 mg/dl (70-99); Potassium 4.6 mmol/L (3.5-5.1); Sodium 140 mmol/L (135-145); eGFR 43.81
== END ==
LOC: REG 09:35
PROVIDERS: ATTENDING PHYSICIAN Physician Assistant Medical; FAMILY PHYSICIAN Family Medicine
DX: I10 Essential (primary) hypertension (principal)
CPT/HCPCS: 36415; 80048

== ENCOUNTER → 2025-01-30 13:33 | Outpatient (REF) | payer MEDICARE, OTHER, SELFPAY | LOC: HWRCS 13:33 | PROVIDERS: ATTENDING PHYSICIAN Physician Assistant Medical; FAMILY PHYSICIAN Family Medicine | DX: R07.89 Other chest pain (principal); I25.10 Atherosclerotic heart disease of native coronary artery without angina pectoris; I10 Essential (primary) hypertension | CPT/HCPCS: 93306 ==

== ENCOUNTER → 2025-02-19 09:58 | Outpatient (REF) | payer MEDICARE, OTHER, SELFPAY | LOC: HWRAD 09:58 | PROVIDERS: ATTENDING PHYSICIAN Internal Medicine Critical Care Medicine; FAMILY PHYSICIAN Family Medicine | DX: R91.1 Solitary pulmonary nodule (principal) | CPT/HCPCS: 71250 ==

== ENCOUNTER 2025-03-02 06:17 | Day surgery (SDC) | payer MEDICARE, OTHER, SELFPAY ==
[2025-02-17 14:00] VITALS: BMI 32.2
[2025-03-02 09:00] VITALS: BP 167/64
[2025-03-02 09:10] VITALS: BMI 29.4
[2025-03-02 09:12] VITALS: BMI 29.4
[2025-03-02 09:40] LABS: Glucose - Point of Care 138 mg/dl (70-99)
[2025-03-02 11:01] VITALS: BP 167/64; BP 171/89
[2025-03-02 11:21] VITALS: BP 189/69
[2025-03-02 11:30] VITALS: BP 188/64
[2025-03-02 11:43] LABS: Glucose - Point of Care 141 mg/dl (70-99)
[2025-03-02 12:00] VITALS: BP 197/109
[2025-03-02 12:15] VITALS: BP 193/69
== END 2025-03-02 12:45 | disposition home or self-care (01) ==
LOC: SDS 06:17
PROVIDERS: ATTENDING PHYSICIAN Internal Medicine Critical Care Medicine
DX: C34.2 Malignant neoplasm of middle lobe, bronchus or lung (principal); C77.1 Secondary and unspecified malignant neoplasm of intrathoracic lymph nodes; R59.0 Localized enlarged lymph nodes
CPT/HCPCS: 31629; 31624; 31623; 31627; 31654; 31625; 31652; 88173; 88305; 71045; 76000; 82962; 88112; 88334; 88341; 88342; 94640; C1887

== ENCOUNTER 2025-03-23 10:12 | Emergency (ER) | payer MEDICARE, OTHER, SELFPAY ==
[2025-03-23 10:21] VITALS: BP 133/55
--- NOTE | 2025-03-23 12:41 | ED.GENMED ---
History of Present Illness
<Luisa Whitlock TRACKMOBILE OPERATOR - Last Filed: 03/24/25 12:17>
General
Chief Complaint: Cold/Flu/URI Symptoms
Source: patient
Exam Limitations: none
Time Seen by Provider: 03/23/25 12:40
Nursing documentation reviewed up to this point in time: agreed with
History of Present Illness
History of Present Illness:
89-year-old female with history of NIDDM, CVA, COPD, PE on aspirin only, CAD, HTN, HLD, RI, pancreatitis, PUD, renal insufficiency, CKD 3, thyroidectomy and recent diagnosis of lung CA presents for 2 days of 'hacking cough...so bad my chest hurts
and I can't get my breath.'
Daughter recently with similar cough.
Denies fever/chills, denies n/v/d/c.
Has appointment with Oncology Dr. Miller in 2 days.
Past History
<Luisa Whitlock, TRACKMOBILE OPERATOR - Last Filed: 03/24/25 12:17>
Past History
ED Past Medical History: COPD, HTN, Hypercholesterolemia, IDDM, Hypothyroidism, Other (Chronic kidney disease, Pancreatitis, Ileus, PSTV) and Other (Chronic lumbar radiculopathy, in pain management w/ Dr Dunaway)
ED Past Surgical History: Cholecystectomy, Orthopedic (Lumbar Laminectomy L3-5,) and Other (Only one kidney)
Social History
Tobacco: Former smoker
Alcohol: None
Personal:
Living: with family
Family History
Family History: Negative Diabetes, Hypertension or CAD
Review of Systems
<Luisa Whitlock TRACKMOBILE OPERATOR - Last Filed: 03/24/25 12:17>
Review of Systems
Allergies reviewed?: Yes
All Other Systems: ROS reviewed and negative except as documented in HPI and ROS
Constitutional: Denies fever or chills
EENT: Denies sore throat
Respiratory: Reports cough; Denies trouble breathing
Cardiac: Denies chest pain
ABD/GI: Denies abdominal pain, nausea, vomiting or diarrhea
: Denies dysuria or difficulty voiding
Musculoskeletal: Reports no symptoms
Skin: Reports no symptoms
Neurological: Reports no symptoms
Phy Exam
<Luisa Whitlock, TRACKMOBILE OPERATOR - Last Filed: 03/24/25 12:17>
Physical Exam
Physical Exam:
GENERAL: No acute distress. A&Ox3.
CONSTITUTIONAL: Afebrile.
EYES: clear, conjunctivae normal
ENMT: moist mucus membranes, Pharynx nl
RESPIRATORY: Regular respirations, nonlabored, lungs with few scattered expiratory wheezes. Pulse ox 94% RA
CARDIOVASCULAR: Regular rate and rhythm, no murmurs, no rubs.
GI: Soft, nontender, normal BS
MUSCULOSKELETAL: Moves with ease. Well perfused.
SKIN: Warm, dry, pink
PSYCH: Normal mood and affect. Well kept, interactive and appropriate
NEUROLOGIC: Awake, alert and oriented. No focal neurological deficits
Course
<Luisa Whitlock, TRACKMOBILE OPERATOR - Last Filed: 03/24/25 12:17>
Orders/Labs/Results
Orders:
Orders
03/23/25 10:25
Electrocardiogram (*1) Urgent
Reason for Study: Chest Pain
EKG- Treatment ONCE
03/23/25 12:51
Ipratropium/Albuterol Sulfate [Duoneb] 3 ml INH R NOW STA
03/23/25 12:57
CR Chest - 2 Views Urgent
Comment:
Reason For Exam: hacking cough recent lung Ca dx.
03/23/25 14:00
COVID-19 Antigen Urgent
Source: Nasal Swab
Influenza A+B Rapid Molecular Urgent
TAHIR Source: Nasal Swab
Specimen Description:
Vital Signs
Initial and Last Documented VS:
Initial Vital Signs
Temp Pulse Resp Pulse Ox
98.4 F 68 22 94
03/23/25 10:20 03/23/25 10:20 03/23/25 10:20 03/23/25 10:20
Last Documented Vital Signs
Temp Pulse Resp BP Pulse Ox
98.4 F 76 18 128/60 93
03/23/25 10:20 03/23/25 14:54 03/23/25 14:54 03/23/25 14:54 03/23/25 14:54
<Clari Shabazz MD - Last Filed: 03/23/25 13:52>
Orders/Labs/Results
Orders:
Orders
03/23/25 10:25
Electrocardiogram (*1) Urgent
Reason for Study: Chest Pain
EKG- Treatment ONCE
03/23/25 12:51
Ipratropium/Albuterol Sulfate [Duoneb] 3 ml INH R NOW STA
03/23/25 12:57
CR Chest - 2 Views Urgent
Comment:
Reason For Exam: hacking cough recent lung Ca dx.
03/23/25 14:00
COVID-19 Antigen Urgent
Source: Nasal Swab
Influenza A+B Rapid Molecular Urgent
TAHIR Source: Nasal Swab
Specimen Description:
Vital Signs
Initial and Last Documented VS:
Initial Vital Signs
Temp Pulse Resp Pulse Ox
98.4 F 68 22 94
03/23/25 10:20 03/23/25 10:20 03/23/25 10:20 03/23/25 10:20
Last Documented Vital Signs
Temp Pulse Resp BP Pulse Ox
98.4 F 76 18 128/60 93
03/23/25 10:20 03/23/25 14:54 03/23/25 14:54 03/23/25 14:54 03/23/25 14:54
<Luisa Whitlock, TRACKMOBILE OPERATOR - Last Filed: 03/24/25 12:17>
MDM/Problems Addressed
Differential Diagnosis Includes:
COPD exacerbation, viral URI, Covid, bronchitis
MDM/Problems Addressed:
89-year-old female with history of NIDDM, CVA, COPD, PE on aspirin only, CAD, HTN, HLD, RI, pancreatitis, PUD, renal insufficiency, CKD 3, thyroidectomy and recent diagnosis of lung CA presents for 2 days of 'hacking cough...so bad my chest hurts
and I can't get my breath.' 'They told me I have lung cancer.'
Daughter recently with similar cough.
Denies fever/chills, denies n/v/d/c.
Has appointment with Oncology Dr. Miller in 2 days.
Afebrile, NAD
No cough during initial exam, lungs with few scattered expiratory wheezes, no hypoxemia
PET scan 02/25/25 report reviewed: IMPRESSION:
1. LARGE 4.3 cm RIGHT MIDDLE LOBE LUNG CANCER.
2. LARGE METASTATIC RIGHT HILAR, RIGHT PARATRACHEAL, and SUBCARINAL LYMPH NODES.
3. 1.1 cm pulmonary metastasis or synchronous lung cancer in the left upper lobe.
4. Severe left renal atrophy.
3:00 p.m.
Chest x-ray radiology report read: Right perihilar opacity in keeping with the patient's known lung cancer.
No new focal consolidation, pleural effusion, or pneumothorax. The cardiomediastinal silhouette is stable. Chronic degenerative changes of the spine. Partially imaged lumbar fusion hardware.
COVID-negative
Influenza A and B neg
Patient has had no significant coughing spells during this admission.
<Luisa Whitlock, TRACKMOBILE OPERATOR - Last Filed: 03/24/25 12:17>
*EKG
EKG Intrepretation Date: 03/23/25
Interpretation: abnormal
Heart Rate: 62
Rate: normal
Rhythm: sinus
[place]: normal axis
Interval: normal interval
QRS Pattern: normal QRS
Ischemia: non-specific ST changes
*Critical Care Note
Total Time (30-74mins, 75-104mins- exclusive of procedures): Not Applicable
ED Attending Note
<Luisa Whitlock NP - Last Filed: 03/24/25 12:17>
-
Portions of this chart may have been created with voice recognition software.� Occasional wrong word or��sound alike� substitutions may have occurred due to the inherent limitations of voice recognition software.
<Clari Shabazz MD - Last Filed: 03/23/25 13:52>
ED Attending Note
Patient seen and examined by attending physician: Yes
I performed the substantive portion of visit, reviewed & personally made and approve the management plan that is documented in note by myself or KENNETH.: Yes
ED Attending Note:
Patient appears nontoxic, smiling conversational. No sign of respiratory distress. Decreased breath sounds bilaterally. No wheezing or crackles.
Discharge Plan
Departure
Patient Disposition: Home (Routine Discharge)
Date of Disposition: 03/23/25
Time of Disposition: 15:00
Patient with high blood pressure during this ER visit?: No
Condition: Good
Discharge Problem:
Coughing, Lung cancer
Instructions: Lung cancer, Cough in adults
Prescriptions:
No Action
cyclosporine [Restasis] 10 DROPS dropperette
1 drp BOTH EYES BID
atorvastatin 40 MG tablet
40 mg PO QPM
levothyroxine [Synthroid] 150 mcg Tablet
150 mcg PO MOTUWETHFRSA
levothyroxine [Synthroid] 150 mcg Tablet
300 mcg PO NEWTON
glipizide 5 mg Tablet
5 mg PO HS
oxycodone 20 mg Tablet
20 mg PO Q4H PRN (Reason: pain)
multivitamin Tablet
1 tab PO DAILY
furosemide 40 mg Tablet
40 mg PO DAILY
carvedilol 25 mg Tablet
25 mg PO BID
losartan 25 mg Tablet
25 mg PO DAILY
Trelegy Ellipta 200-62.5-25 mcg Blister With Device
1 inh INHALATION DAILY
aspirin 81 mg Capsule
81 mg PO DAILY
docusate sodium [Colace] 100 mg Capsule
100 mg PO Q48H
Referrals:
Maria Fernanda Miller MD [Active] - Keep scheduled appt
Chyna Nichols DO [Family Provider] -
Activity Restrictions/Additional Instructions:
As we discussed, your x-ray shows no new pneumonia or any other new findings
I reviewed your scan from February and it does confirm that you have lung cancer.
Mentholated cough drops may help your cough
Keep your appointment with your oncologist in 2 days
Interventions
Interventions:
*Risk Screen - Suicide Last Done: 03/23/25 15:22
*General Assessment Last Done: 03/23/25 13:54
*Neglect/Abuse Screening Last Done: 03/23/25 15:21
*ED- Fall Risk Assessment Last Done: 03/23/25 13:54
*ED COVID-19 Vaccine History Last Done: 03/23/25 13:54
*Nursing Disposition Last Done: 03/23/25 15:21
ED- Pulmonary Assessment Last Done: 03/23/25 14:54
Discharge Date and Time
Discharge Date/Time: 03/23/25 15:22
Print Language: TUVALUAN
--- NOTE | 2025-03-23 13:25 | EDRN ---
Pt in [place] at this time.
[2025-03-23 13:53] VITALS: BMI 29.7
[2025-03-23 13:57] VITALS: BP 149/61
[2025-03-23] MEDS: DUONEB 3 ML INH (13:59)
[2025-03-23 14:35] LABS: COVID-19 Antigen Negative (Negative)
[2025-03-23 14:54] VITALS: BP 128/60
--- NOTE | 2025-03-23 15:15 | EDRN ---
Margo Whitlock EDGING MACHINE OPERATOR in to speak w/ pt.
== END 2025-03-23 15:22 | disposition home or self-care (01) ==
LOC: EMR 10:12
PROVIDERS: Registered Nurse; EMERGENCY PHYSICIAN Emergency Medicine; FAMILY PHYSICIAN Family Medicine
DX: C34.90 Malignant neoplasm of unspecified part of unspecified bronchus or lung (principal); R05.9 Cough, unspecified; E03.9 Hypothyroidism, unspecified; E11.22 Type 2 diabetes mellitus with diabetic chronic kidney disease; I12.9 Hypertensive chronic kidney disease with stage 1 through stage 4 chronic kidney disease, or unspecified chronic kidney disease; N18.30 Chronic kidney disease, stage 3 unspecified; J44.9 Chronic obstructive pulmonary disease, unspecified; I25.10 Atherosclerotic heart disease of native coronary artery without angina pectoris; Z86.73 Personal history of transient ischemic attack (TIA), and cerebral infarction without residual deficits; Z87.891 Personal history of nicotine dependence; Z87.11 Personal history of peptic ulcer disease; Z11.52 Encounter for screening for COVID-19
CPT/HCPCS: 99285; 94640; 71046; 87502; 87811; 93005

== ENCOUNTER → 2025-04-13 08:47 | Outpatient (REF) | payer MEDICARE, OTHER, SELFPAY ==
[2025-04-13 09:31] LABS: % Basophils 0.1 % (0-2); % Eosinophils 0.6 % (0-6); % Lymphocytes 9.4 % (20.5-51.1); % Monocytes 7.7 % (1.7-9.3); % Neutrophils 81.2 % (42.2-75.2); Absolute Eosinophils 0.1 10^3/uL (0-0.7); Absolute Immature Granulocytes 0.1 10^3/uL (0-0.05); Absolute Lymphocytes 0.8 10^3/uL (1.2-3.4); Absolute Monocytes 0.7 10^3/uL (0.1-0.6); Absolute Neutrophils 7.1 10^3/uL (1.4-6.5); Hematocrit 39.7 % (37.0-47.0); Hemoglobin 12.7 g/dL (12.0-16.0); Mean Corpuscular Hgb 30.5 pg (27.0-31.0); Mean Corpuscular Volume 95.2 fL (81.0-99.0); Mean Platelet Volume 9.2 fL (7.4-10.4); Nucleated Red Blood Cells % 0 %; Platelet Count 108 10^3/uL (130-400); Red Blood Cell Count 4.17 10^6/uL (4.20-5.40); Red Cell Dist. Width 15.1 % (11.5-14.5); White Blood Cell Count 8.7 10^3/uL (4.8-10.8)
[2025-04-13 09:58] LABS: ALT (SGPT) 16 U/L (0-35); AST (SGOT) 19 U/L (14-36); Albumin 2.9 g/dl (3.5-5.0); Alkaline Phosphatase 77 U/L (38-126); Blood Urea Nitrogen 36 mg/dl (7-17); Calcium 7.8 mg/dl (8.4-10.2); Carbon Dioxide 33 mmol/L (22-30); Chloride 107 mmol/L (98-107); Glucose 98 mg/dl (70-99); Potassium 4.4 mmol/L (3.5-5.1); Sodium 140 mmol/L (135-145); Total Bilirubin 0.8 mg/dl (0.2-1.3); Total Protein 5.3 g/dl (6.3-8.2); eGFR 33.52
[2025-04-13 10:25] LABS: TSH 1.43 uIU/ml (0.47-4.68)
== END ==
LOC: REG 08:47
PROVIDERS: ATTENDING PHYSICIAN Internal Medicine Hematology & Oncology; FAMILY PHYSICIAN Family Medicine
DX: R91.1 Solitary pulmonary nodule (principal); C34.11 Malignant neoplasm of upper lobe, right bronchus or lung; E03.9 Hypothyroidism, unspecified
CPT/HCPCS: 36415; 80053; 84443; 85025

== ENCOUNTER → 2025-05-07 08:39 | Outpatient (REF) | payer MEDICARE, OTHER, SELFPAY ==
[2025-05-07 09:18] LABS: Hematocrit 36.5 % (37.0-47.0); Hemoglobin 11.5 g/dL (12.0-16.0); Mean Corp Hgb Conc. 31.5 g/dL (33.0-37.0); Mean Corpuscular Volume 95.5 fL (81.0-99.0); Nucleated Red Blood Cells % 0 %; Platelet Count 165 10^3/uL (130-400); Red Cell Dist. Width 15.3 % (11.5-14.5)
[2025-05-07 11:11] LABS: ALT (SGPT) 13 U/L (0-35); AST (SGOT) 20 U/L (14-36); Albumin 3.0 g/dl (3.5-5.0); Alkaline Phosphatase 86 U/L (38-126); Blood Urea Nitrogen 20 mg/dl (7-17); Calcium 8.5 mg/dl (8.4-10.2); Carbon Dioxide 30 mmol/L (22-30); Chloride 109 mmol/L (98-107); Glucose 145 mg/dl (70-99); Potassium 4.1 mmol/L (3.5-5.1); Sodium 141 mmol/L (135-145); Total Protein 5.7 g/dl (6.3-8.2); eGFR 48.63
[2025-05-07 11:27] LABS: TSH 2.23 uIU/ml (0.47-4.68)
== END ==
LOC: REG 08:39
PROVIDERS: ATTENDING PHYSICIAN Internal Medicine Hematology & Oncology; FAMILY PHYSICIAN Family Medicine
DX: R91.1 Solitary pulmonary nodule (principal); C34.11 Malignant neoplasm of upper lobe, right bronchus or lung; E03.9 Hypothyroidism, unspecified
CPT/HCPCS: 36415; 80053; 84443; 85025

== ENCOUNTER 2025-05-09 16:28 | Inpatient (IN) | payer MEDICARE, OTHER, SELFPAY ==
[2025-05-09] VITALS (11 sets, daily range): BP systolic 147–191; BP diastolic 63–90; BMI 30.2; BMI 29.1
[2025-05-09 09:11] LABS: Hematocrit 37.9 % (37.0-47.0); Hemoglobin 12.2 g/dL (12.0-16.0); Mean Corp Hgb Conc. 32.2 g/dL (33.0-37.0); Mean Corpuscular Volume 95.5 fL (81.0-99.0); Nucleated Red Blood Cells % 0 %; Platelet Count 174 10^3/uL (130-400); Red Cell Dist. Width 15.4 % (11.5-14.5)
[2025-05-09 09:36] LABS: ALT (SGPT) 13 U/L (0-35); AST (SGOT) 18 U/L (14-36); Albumin 3.1 g/dl (3.5-5.0); Alkaline Phosphatase 89 U/L (38-126); Blood Urea Nitrogen 28 mg/dl (7-17); Calcium 8.7 mg/dl (8.4-10.2); Carbon Dioxide 30 mmol/L (22-30); Chloride 112 mmol/L (98-107); Estimated Creatinine Clearance 36 ml/min; Glucose 161 mg/dl (70-99); Potassium 4.3 mmol/L (3.5-5.1); Sodium 143 mmol/L (135-145); Total Protein 6.0 g/dl (6.3-8.2); eGFR 43.81
--- NOTE | 2025-05-09 09:41 | ED.GENMED ---
History of Present Illness
General
Chief Complaint: Chest Pain
Time Seen by Provider: 05/09/25 09:10
History of Present Illness
History of Present Illness:
89-year-old female presents the emergency department for evaluation of chest pain and cough that began last night during fireworks. She states it feels similar to presentation from approximately 6 weeks ago at which time she was diagnosed with a
new lung cancer. She is on immunotherapy and follows with [facility]. She reports the symptoms are described as pressure at this point. Denies dyspnea. Not on thinners
Past History
Past History
ED Past Medical History: COPD, HTN, Hypercholesterolemia, IDDM, Hypothyroidism, Other (Chronic kidney disease, Pancreatitis, Ileus, PSTV) and Other (Chronic lumbar radiculopathy, in pain management w/ Dr Dunaway)
ED Past Surgical History: Cholecystectomy, Orthopedic (Lumbar Laminectomy L3-5,) and Other (Only one kidney)
Social History
Tobacco: Former smoker
Alcohol: None
Personal:
Living: with family
Family History
Family History: Negative Diabetes, Hypertension or CAD
Review of Systems
Review of Systems
Allergies reviewed?: Yes
All Other Systems: ROS reviewed and negative except as documented in HPI and ROS
Phy Exam
Physical Exam
Physical Exam:
GEN: Well appearing, NAD, WDWN
Eyes: PERRLA, EOMs intact, no scleral icterus
HENT: NCAT, oral mucosa moist
Lungs: CTAB, no wheezes, rales, rhonchi, normal chest wall excursion
Cardiac: RRR, no M/R/G, no peripheral edema. Radial pulses 2+ bilat
Abdomen: S, NT, ND, NABS, no masses or hepatosplenomegaly
Neuro: AO x 3
MSK: No gross deformity or ecchymosis. Mild bilateral lower extremity edema left greater than right
Skin: No rashes, petechiae. Normal color, no pallor or jaundice.
Psych: Calm, cooperative, proper hygiene
Scores
Heart Score for Chest Pain Patients
STEMI patient?: No
History: Slightly or Non-Suspicious
ECG: Normal
Age: >/= 65 years
Risk Factors: >/= 3 Risk Factors or History of CAD
Troponin: >1 - <3 x Normal Limit
Heart Score for Chest Pain Patients: 5
Heart Score Risk: 20.3% MACE over next 6 weeks
Course
Orders/Labs/Results
Orders:
Orders
05/09/25 08:56
Electrocardiogram (*1) Urgent
Reason for Study: Shortness of Breath
CXR2 [CR Chest - 2 Views ] Urgent
Comment:
Reason For Exam: shortness of breath
05/09/25 08:57
EKG- Treatment ONCE
05/09/25 09:03
Complete Blood Count/With Diff Urgent
Comprehensive Metabolic Panel Urgent
NT-proBNP Urgent
Troponin I Urgent
05/09/25 09:42
D-Dimer Urgent
05/09/25 11:33
CT Chest PE Study Urgent
Comment:
Reason For Exam: SOB, elevated dimer
05/09/25 14:47
EKG [Electrocardiogram (*1)] Urgent
Reason for Study: Chest Pain
Comment: 2nd trop
05/09/25 14:48
EKG- Treatment ONCE
05/09/25 15:08
Troponin I Urgent
Abnormal Lab Results
05/09/25 05/09/25
09:03 09:42
RBC 3.97 L 10^6/uL
(4.20-5.40)
MCHC 32.2 L g/dL
(33.0-37.0)
RDW 15.4 H %
(11.5-14.5)
Abs Immat Gran (auto) 0.1 H 10^3/uL
(0-0.05)
Absolute Neuts (auto) 6.8 H 10^3/uL
(1.4-6.5)
Absolute Lymphs (auto) 0.6 L 10^3/uL
(1.2-3.4)
Immature Gran % 1.3 H %
(0-0.5)
Neutrophils % 82.2 H %
(42.2-75.2)
Lymphocytes % 7.7 L %
(20.5-51.1)
D-Dimer 2.26 H ug/mlFEU
(0.00-0.50)
Chloride 112 H mmol/L
(98-107)
BUN 28 H mg/dl
(7-17)
Creatinine 1.2 H mg/dL
(0.6-1.0)
Glucose 161 H mg/dl
(70-99)
Total Protein 6.0 L g/dl
(6.3-8.2)
Albumin 3.1 L g/dl
(3.5-5.0)
05/09/25 09:03
05/09/25 09:03
Vital Signs
Initial and Last Documented VS:
Initial Vital Signs
Temp Pulse Resp BP Pulse Ox
97.8 F 75 17 191/90 94
05/09/25 08:58 05/09/25 08:58 05/09/25 08:58 05/09/25 08:58 05/09/25 08:58
Last Documented Vital Signs
Temp Pulse Resp BP Pulse Ox
97.8 F 66 9 170/66 94
05/09/25 08:58 05/09/25 11:00 05/09/25 11:00 05/09/25 11:00 05/09/25 11:00
MDM/Problems Addressed
MDM/Problems Addressed:
Patient presents with chest tightness, difficulty breathing, noted had intermittent hypoxia in emergency department with occasional desaturations into the mid to upper 80s particularly supine. She was initially given nasal cannula oxygen however
refused to wear this further as it makes her uncomfortable. Her symptoms are most likely due to increasing pleural effusions in the setting of known lung cancer. PE study obtained due to elevated D-dimer and this was unremarkable. Will trial
diuresis but may require thoracentesis for diagnostic and therapeutic benefit, will admit to hospitalist
*Pulse Oximetry
SaO2: 95
Oxygen Mode of Delivery: Room air
Patient hypoxic: yes (86-88% positionally)
*Critical Care Note
Total Time (30-74mins, 75-104mins- exclusive of procedures): Not Applicable
ED Attending Note
-
Portions of this chart may have been created with voice recognition software.� Occasional wrong word or��sound alike� substitutions may have occurred due to the inherent limitations of voice recognition software.
Discharge Plan
Departure
Patient Disposition: Admit
Date of Disposition: 05/09/25
Time of Disposition: 15:34
Admit to: Telemetry
Presentation/result/management discussed w/ accepting MD/DO: Hospitalist
Discharge Problem:
Chest tightness, Pleural effusion, Acute respiratory insufficiency
Prescriptions:
No Action
cyclosporine [Restasis] 10 DROPS dropperette
1 drp BOTH EYES BID
atorvastatin 40 MG tablet
40 mg PO QPM
levothyroxine [Synthroid] 150 mcg Tablet
150 mcg PO MOTUWETHFRSA
levothyroxine [Synthroid] 150 mcg Tablet
300 mcg PO NEWTON
glipizide 5 mg Tablet
5 mg PO HS
oxycodone 20 mg Tablet
20 mg PO Q4H PRN (Reason: pain)
multivitamin Tablet
1 tab PO DAILY
furosemide 40 mg Tablet
40 mg PO DAILY
carvedilol 25 mg Tablet
25 mg PO BID
losartan 25 mg Tablet
25 mg PO DAILY
Trelegy Ellipta 200-62.5-25 mcg Blister With Device
1 inh INHALATION DAILY
aspirin 81 mg Capsule
81 mg PO DAILY
docusate sodium [Colace] 100 mg Capsule
100 mg PO Q48H
Referrals:
Chyna Nichols DO [Family Provider, Family Practice]
Interventions
Interventions:
*Risk Screen - Suicide Last Done: 05/09/25 08:58
*General Assessment Last Done: 05/09/25 08:58
*Neglect/Abuse Screening Last Done: 05/09/25 08:58
*ED- Fall Risk Assessment Last Done: 05/09/25 08:58
*ED COVID-19 Vaccine History Last Done: 05/09/25 08:58
ED- Cardiac Assessment Last Done: 05/09/25 09:10
Discharge Date and Time
Print Language: THAI
[2025-05-09 09:49] LABS: Troponin I 0.020 ng/ml
[2025-05-09 10:44] LABS: D-Dimer 2.26 ug/mlFEU (0.00-0.50)
--- NOTE | 2025-05-09 15:35 | HPS.HSE ---
Family Physician
-
Family Physician: Chyna Nichols
Chief Complaint
-
Chest pain and shortness of breath
History of Present Illness
89-year-old female with a past medical history of former smoking, COPD, recently diagnosed lung cancer on immunotherapy, hypertension, hyperlipidemia, diabetes, and chronic kidney disease with only right kidney functioning who presents with a 1 day
history of shortness of breath and chest pain. Patient reports that her shortness of breath and chest pain started last night, and has since worsened. She does have a cough, nonproductive. Denies nausea, denies vomiting. No lightheadedness, no
dizziness. She does have a headache. She has chronic back pain, does follow with pain management. No fever.
Medical History
Past Medical History
Past Medical History: Reports Other
Additional Past Medical History:
COPD
Hypertension
Hyperlipidemia
Diabetes
Chronic kidney disease with only right kidney functioning
Pancreatitis
Ileus
Chronic lumbar radiculopathy
Lung cancer
Past Surgical History: Reports Other (Cholecystectomy, Orthopedic (Lumbar Laminectomy L3-5,) )
Social History
Tobacco: Former Smoker
Alcohol: None
Drug: None
Family History
Family History: Not pertinent
Allergies / Home Medications
Allergies reflects when Allergies were last updated in [facility].
Home Medications with original date entered in [facility]
Allergy/Medication List:
Allergies
Allergy/AdvReac Type Severity Reaction Status Date / Time
No Known Allergies Allergy Verified 03/23/25 10:21
Home Medications Table - record
�Medication �Instructions �Recorded �Confirmed
cyclosporine 0.05 % eye drops in a 1 drp BOTH EYES BID Eye condition 05/09/13 03/02/25
dropperette (Restasis)
atorvastatin 40 mg tablet 40 mg PO QPM High cholesterol 10/09/18 03/02/25
glipizide 5 mg tablet 5 mg PO HS Diabetes 06/27/22 03/02/25
levothyroxine 150 mcg tablet 150 mcg PO MOTUWETHFRSA Thyroid 06/27/22 03/02/25
(Synthroid)
levothyroxine 150 mcg tablet 300 mcg PO NEWTON Thyroid 06/27/22 03/02/25
(Synthroid)
oxycodone 20 mg tablet 20 mg PO Q4H PRN pain 06/27/22 03/02/25
aspirin 81 mg capsule 81 mg PO DAILY 02/26/25 03/02/25
carvedilol 25 mg tablet 25 mg PO BID 02/26/25 03/02/25
docusate sodium 100 mg capsule 100 mg PO Q48H 02/26/25 03/02/25
(Colace)
fluticasone fur. 200 mcg-umeclid 1 inh inhalation DAILY 02/26/25 03/02/25
62.5 mcg-vilant 25 mcg
inhalat.powder (Trelegy Ellipta)
furosemide 40 mg tablet 40 mg PO DAILY 02/26/25 03/02/25
losartan 25 mg tablet 25 mg PO DAILY 02/26/25 03/02/25
multivitamin 1 tab PO DAILY 02/26/25 03/02/25
Review of Systems
-
A 12 point ROS was completed and negative except as noted: Yes
Physical Exam
Vital Signs
Vital Signs
Temp Pulse Resp BP Pulse Ox
97.8 F 66 9 170/66 94
05/09/25 08:58 05/09/25 11:00 05/09/25 11:00 05/09/25 11:00 05/09/25 11:00
Physical Exam
General: No Apparent Distress
HEENT: NormoCephalic, Anicteric, Moist mucous membranes and Atraumatic
Respiratory: Crackles
Cardiac: S1/S2 and Regular Rhythm
GI: Soft, Non Tender, Non Distended and Normal Bowel Sounds
Musculoskeletal: No Clubbing, No Cyanosis, Edema, Left Lower Extremity and Edema, Right Lower Extremity
Laboratory Results
-
05/09/25 09:03
05/09/25 09:03
Laboratory Results
Total Bilirubin 0.7 mg/dl (0.2-1.3) 05/09/25 09:03
AST 18 U/L (14-36) 05/09/25 09:
ALT 13 U/L (0-35) 05/09/25 09:03
Alkaline Phosphatase 89 U/L (38-126) 05/09/25 09:03
Troponin I 0.020 ng/ml 05/09/25 09:03
Impression/Plan
-
HPI: 89-year-old female with a past medical history of former smoking, COPD, recently diagnosed lung cancer on immunotherapy, hypertension, hyperlipidemia, diabetes, and chronic kidney disease with only right kidney functioning who presents with a 1
day history of shortness of breath and chest pain. Patient reports that her shortness of breath and chest pain started last night, and has since worsened. She does have a cough, nonproductive. Denies nausea, denies vomiting. No lightheadedness,
no dizziness. She does have a headache. She has chronic back pain, does follow with pain management. No fever.
#Shortness of breath
#Bilateral pleural effusions, left greater than right, likely malignant
Consult IR for thoracentesis
Continue IV Lasix, trend creatinine, trend daily weights
#Lung cancer
Increased in size despite immunotherapy
Follows with Dr. Maria Fernanda Miller
Consult oncology
#Chest pain
Troponins negative
Suspect from her lung cancer
#Chronic back pain
Follows with Dr. Dunaway pain management
Continue home pain regimen, laxatives
#Stage III chronic kidney disease
#Nonfunctioning left kidney
Trend creatinine, trend daily weights
#Essential hypertension
Continue Coreg 25 mg twice a day, losartan 25 mg daily
#COPD
Continue bronchodilators
#Hypothyroidism
Continue levothyroxine
#Hyperlipidemia
Continue statin
#Anxiety/depression
Continue SSRI
#Diabetes
Continue glipizide 5 mg daily, sliding scale insulin
DVT prophylaxis�subcu Lovenox
DNR confirmed upon admission
Updated at bedside 05/09
Total time spent to see the patient on the floor, examine the patient, review data and lab results, discuss treatment plan with patient, nursing staff around 77 minutes.
[2025-05-09 15:40] LABS: Troponin I 0.016 ng/ml
[2025-05-09] MEDS: LASIX 40 MG IV (16:01)
[2025-05-09] MEDS: COZAAR 25 MG PO (17:08)
--- NOTE | 2025-05-09 18:01 | EDRN ---
Patient taken to room 410-2 on stretcher by clinical laboratory technologist on monitor. Patient continues with c/o chest pressure and SOB.
[2025-05-09] MEDS: ROXICODONE 20 MG PO ×2 (18:32→22:33)
[2025-05-09] MEDS: LOVENOX 40 MG SC (18:32)
[2025-05-09] MEDS: LIPITOR 40 MG PO (18:33)
[2025-05-09] MEDS: NOVOLOG FLEXPEN-MODERATE RESISTANCE SC (18:40)
[2025-05-09 18:46] LABS: Glucose - Point of Care 116 mg/dl (70-99)
[2025-05-09] MEDS: SYMBICORT 160/4.5 MCG INHALER 2 PUFF INH (19:59)
[2025-05-09] MEDS: DUONEB 3 ML INH (20:02)
[2025-05-09] MEDS: SENOKOT-S PO (20:29)
[2025-05-09] MEDS: TYLENOL 650 MG PO (20:30)
[2025-05-09] MEDS: GLUCOTROL 5 MG PO (20:30)
[2025-05-09] MEDS: COREG 25 MG PO (20:30)
[2025-05-09] MEDS: RESTASIS 0.05% OPHTHALMIC EMULSION 1 DROPS BOTH EYES (20:30)
[2025-05-09 21:32] LABS: Glucose - Point of Care 179 mg/dl (70-99)
[2025-05-10 03:15] VITALS: BP 168/81
[2025-05-10] MEDS: APRESOLINE 50 MG PO (03:44)
[2025-05-10] MEDS: TYLENOL 650 MG PO ×2 (03:45→22:19)
[2025-05-10] MEDS: SYNTHROID 300 MCG PO (05:05)
[2025-05-10] MEDS: ROXICODONE 20 MG PO ×2 (05:07→20:00)
[2025-05-10] MEDS: DUONEB 3 ML INH (05:46)
[2025-05-10 06:00] VITALS: BMI 29.7
[2025-05-10 07:17] VITALS: BP 167/67
[2025-05-10 07:36] LABS: Glucose - Point of Care 151 mg/dl (70-99)
[2025-05-10] MEDS: SPIRIVA RESPIMAT 2.5 MCG 2 PUFF INH (07:37)
[2025-05-10] MEDS: SYMBICORT 160/4.5 MCG INHALER 2 PUFF INH ×2 (07:39→19:47)
[2025-05-10 07:46] LABS: Blood Urea Nitrogen 22 mg/dl (7-17); Calcium 8.2 mg/dl (8.4-10.2); Carbon Dioxide 25 mmol/L (22-30); Chloride 111 mmol/L (98-107); Estimated Creatinine Clearance 43 ml/min; Glucose 144 mg/dl (70-99); Magnesium 2.2 mg/dl (1.6-2.3); Potassium 4.0 mmol/L (3.5-5.1); Sodium 140 mmol/L (135-145); eGFR 54.53
[2025-05-10] MEDS: SENOKOT-S 2 TABLET PO ×2 (08:28→19:59)
[2025-05-10] MEDS: ASPIR LOW (ENTERIC COATED) 81 MG PO (08:28)
[2025-05-10] MEDS: COZAAR 25 MG PO ×2 (08:29→10:31)
[2025-05-10] MEDS: COREG 25 MG PO ×2 (08:29→19:59)
[2025-05-10] MEDS: RESTASIS 0.05% OPHTHALMIC EMULSION 1 DROPS BOTH EYES ×2 (08:29→19:59)
[2025-05-10] MEDS: LASIX 40 MG IV (08:30)
[2025-05-10] MEDS: NOVOLOG FLEXPEN-MODERATE RESISTANCE 1 UNITS SC ×2 (08:30→12:36)
--- NOTE | 2025-05-10 08:32 | W.PN.HOSP.TC ---
Today's Communication/Plan
-
see bold
Assessment / Plan
Assessment / Plan
HPI: 89-year-old female with a past medical history of former smoking, COPD, recently diagnosed lung cancer on immunotherapy, hypertension, hyperlipidemia, diabetes, and chronic kidney disease with only right kidney functioning who presents with a 1
day history of shortness of breath and chest pain. Patient reports that her shortness of breath and chest pain started last night, and has since worsened. She does have a cough, nonproductive. Denies nausea, denies vomiting. No lightheadedness,
no dizziness. She does have a headache. She has chronic back pain, does follow with pain management. No fever.
#Shortness of breath
#Bilateral pleural effusions, left greater than right, likely malignant
#Acute hypoxic respiratory insufficiency
IR consulted for thoracentesis, plan for tomorrow
Continue IV Lasix, trend creatinine, trend daily weights
Currently requiring 1 L of oxygen, wean as tolerated. She does not wear oxygen at home
#Locally advanced lung cancer
Follows with Dr. Maria Fernanda Miller, started Keytruda mid April 2025
Oncology following
#Chest pain
Troponins negative
Suspect from her lung cancer, continue pain medications
#Chronic back pain
Follows with Dr. Dunaway pain management
Continue home pain regimen, laxatives
#Stage III chronic kidney disease
#Nonfunctioning left kidney
Trend creatinine, trend daily weights
#Essential hypertension
Blood pressure elevated, will increase losartan to 50 mg daily, continue Coreg 25 mg twice a day
#COPD
Continue bronchodilators
#Hypothyroidism
TSH normal, continue levothyroxine
#Hyperlipidemia
Continue statin
#Anxiety/depression
Continue SSRI
#Diabetes
Hemoglobin A1c 6.7
Continue glipizide 5 mg daily, sliding scale insulin
DVT prophylaxis�subcu Lovenox
DNR confirmed upon admission
Updated at bedside 05/10
Discussed with oncology 05/10
Total time spent to see the patient on the floor, examine the patient, review data and lab results, discuss treatment plan with patient, nursing staff around 50 minutes.
Physical Exam
General: No acute distress
HEENT: Normocephalic, Atraumatic, EOMI, MMM
Respiratory: Diminished breath sounds at the bases with faint basilar crackles
Cardiac: Normal S1/S2, Regular Rate and Rhythm
GI: Soft, Nontender, Nondistended, Normal Bowel Sounds
Extremities: No Clubbing, Cyanosis
Bilateral lower extremity edema noted
Neuro: Nonfocal/Grossly Intact
Psych: Calm, Cooperative
Anticipated Discharge: 24 - 48 hours
Subjective/Interval History
-
Date of Service: May 10, 2025
Patient reports shortness of breath mildly improved from admission. Continues to have chest pain. No fever, no vomiting.
Objective Data
-
Labs:
Laboratory Results
05/10/25
07:04
Sodium 140
Potassium 4.0
Chloride 111 H
Carbon Dioxide 25
BUN 22 H
Creatinine 1.0
Glucose 144 H
Calcium 8.2 L
Vital Signs:
Vital Signs
Temp Pulse Resp BP Pulse Ox
98.4 F 64 18 167/67 94
05/10/25 07:17 05/10/25 07:45 05/10/25 07:17 05/10/25 07:17 05/10/25 07:45
I&O
05/09/25 05/10/25 05/11/25
06:59 06:59 06:59
Intake Total 960 / 960
Output Total 2550 / 2550
Balance -1590 / -1590
[2025-05-10 10:26] LABS: Glycohemoglobin (HgbA1c) 6.7 % (4.0-5.6)
[2025-05-10 11:14] VITALS: BP 151/65
--- NOTE | 2025-05-10 11:33 | CON.ONC ---
Consultation
-
Date Consultation Requested: 05/09/25
Date Consultation Performed: 05/10/25
Requesting Provider: Dr Joe Noyola
Performing Provider: Dr Maria Fernanda Miller
Reason for Consultation: lung cancer
Impression
Impression
locally advance lung cancer, started Keytruda mid April 2025
dyspnea prompting hospital admission, bilateral pleural effusions
intermittent chest pain
chronic back pain
Plan
Plan
agree w/ plan for IR thoracentesis; would send fluid for cytology
negative troponins suggest chest pain is not cardiac. May be related to lung cancer
opioids (home meds) for chronic back pain
will reschedule her 7/ Keytruda dose once she's discharged
Patient History
History of Present Illness
This is an 89yo F w/ recently diagnosed lung cancer, at least stage 3, though suspect stage 4 with tumor in contralateral lung. She was started on Keytruda in mid-April, tolerated well except for a couple days of diarrhea. She has chronic back pain
and intermittent chest discomfort. She presented to the ER with increasing dyspnea, and CT showed bilateral pleural effusions. Lung cancer has increased since February 2025, but recall treatment wasn't started until mid-April. Troponins are negative. IR
thoracentesis has been ordered.
She denies sputum production, fevers. She has had minimal ankle swelling. No sore throat or difficulty swallowing. Bowel movements are regular.
Past-Medical/Surgical History
Past Medical History: Reports Other
Additional Past Medical History:
COPD
Hypertension
Hyperlipidemia
Diabetes
Chronic kidney disease with only right kidney functioning
Pancreatitis
Ileus
Chronic lumbar radiculopathy
Lung cancer
Past Surgical History: Reports Other (Cholecystectomy, Orthopedic (Lumbar Laminectomy L3-5,) )
Social History
Tobacco: Former Smoker
Alcohol: None
Drug: None
Family History
Family History: Not pertinent
Patient Medication
�Medication �Instructions �Recorded �Confirmed �Last Taken �Type
atorvastatin 40 mg tablet 40 mg PO HS High cholesterol 10/09/18 05/09/25 05/08/25 History
glipizide 5 mg tablet 5 mg PO QPM Diabetes 06/27/22 05/09/25 05/08/25 History
levothyroxine 150 mcg tablet 150 mcg PO MOTUWETHFRSA Thyroid 06/27/22 05/09/25 05/08/25 History
(Synthroid)
levothyroxine 150 mcg tablet 300 mcg PO NEWTON Thyroid 06/27/22 05/09/25 05/03/25 History
(Synthroid)
oxycodone 20 mg tablet 20 mg PO Q4HPRN PRN severe pain 06/27/22 05/09/25 05/08/25 History
carvedilol 25 mg tablet 25 mg PO BID Blood Pressure 02/26/25 05/09/25 05/08/25 History
docusate sodium 100 mg capsule 100 mg PO Q48H Constipation 02/26/25 05/09/25 05/08/25 History
(Colace)
furosemide 40 mg tablet 40 mg PO DAILY Fluid 02/26/25 05/09/25 05/08/25 History
Retention/Swelling
losartan 25 mg tablet 25 mg PO DAILY Blood Pressure 02/26/25 05/09/25 05/08/25 History
multivitamin 1 tab PO DAILY Supplement 02/26/25 05/09/25 05/08/25 History
Unknown Infusion 1 dose IV Q3W 05/09/25 05/09/25 Unknown History
acetaminophen 500 mg tablet 1,000 mg PO BIDPRN PRN mild pain 05/09/25 05/09/25 Unknown History
(Tylenol Extra Strength)
aspirin 81 mg tablet,delayed 81 mg PO HS Blood Clot 05/09/25 05/09/25 05/08/25 History
release Prevention/Tx
cyclosporine 0.05 % eye drops in a 1 drp BOTH EYES BID Eye Condition 05/09/25 05/09/25 05/08/25 History
dropperette
diphenhydramine HCl 50 mg/30 mL 50 mg PO HS PRN sleep 05/09/25 05/09/25 1 Week Ago History
oral liquid (ZzzQuil) ~05/02/25
fluticasone fur. 100 mcg-umeclid 1 inh inhalation R DAILY 05/09/25 05/09/25 05/08/25 History
62.5 mcg-vilant 25 mcg Lung/Breathing Issues
inhalat.powder (Trelegy Ellipta)
polyvinyl alcohol 1.4 % eye drops 2 drp BOTH EYES HS Eye Condition 05/09/25 05/09/25 05/08/25 History
Active Medications
Generic Name Dose Route Start Last Admin
Trade Name Freq PRN Reason Stop Dose Admin
Acetaminophen 650 mg 05/09/25 15:57 05/10/25 03:45
Acetaminophen 325 Mg Tablet PO 06/06/25 15:56 650 mg
Q4HPRN PRN Administration
mild pain/MA/temp> 100.4F
Albuterol Sulfate 2.5 mg 05/10/25 11:23
Albuterol Nebs 2.5 Mg/3 Ml Ampul INH
R Q4HPRN PRN
SOB/wheezing
Protocol
Aspirin 81 mg 05/10/25 08:00 05/10/25 08:28
Aspirin 81 Mg (Enteric Coated) Tablet PO 06/07/25 07:59 81 mg
DAILY SIL Administration
Atorvastatin Calcium 40 mg 05/09/25 18:00 05/09/25 18:33
Atorvastatin (Lipitor) 40 Mg Tablet PO 06/06/25 17:59 40 mg
QPM SIL Administration
Budesonide/Formoterol Fumarate 2 puff 05/09/25 20:00 05/10/25 07:39
Symbicort Inhaler 160/4.5 INH 06/06/25 19:59 2 puff
R BID SIL Administration
Protocol
Carvedilol 25 mg 05/09/25 20:00 05/10/25 08:29
Carvedilol 25 Mg Tablet PO 06/06/25 19:59 25 mg
BID SIL Administration
Cyclosporine 1 drops 05/09/25 20:00 05/10/25 08:29
Cyclosporine 0.05% (Ophthalmic Emulsion) 10 Drop Droperette BOTH EYES 06/06/25 19:59 1 drops
BID SIL Administration
Dextrose 12.5 grams 05/09/25 17:59
Dextrose 50% (0.5 Grams/Ml) 50 Ml Syringe IV 06/06/25 17:58
[id number] PRN
hypoglycemia
Protocol
Enoxaparin Sodium 40 mg 05/09/25 18:00 05/09/25 18:32
Enoxaparin Sodium 40 Mg/0.4 Ml Syringe SC 06/06/25 17:59 40 mg
QPM SIL Administration
Furosemide 40 mg 05/10/25 08:00 05/10/25 08:30
Furosemide 40 Mg (10 Mg/Ml) 4 Ml Vial IV 06/07/25 07:59 40 mg
DAILY SIL Administration
Glipizide 5 mg 05/09/25 22:00 05/09/25 20:30
Glipizide 5 Mg Regular Release Tablet PO 06/06/25 21:59 5 mg
HS SIL Administration
Glucagon 1 mg 05/09/25 17:59
Glucagon 1 Mg Vial IM 06/06/25 17:58
PRN PRN
hypoglycemia
Protocol
Hydralazine HCl 50 mg 05/09/25 17:59 05/10/25 03:44
Hydralazine 50 Mg Tablet PO 06/06/25 17:58 50 mg
BIDPRN PRN Administration
SBP > 160
Insulin Aspart 0 units 05/09/25 17:59 05/10/25 08:30
Insulin Aspart Moderate Resistance 300 Units/3 Ml Pen.Injctr SC 06/06/25 17:58 1 units
AC SIL Administration
Protocol
Levothyroxine Sodium 150 mcg 05/11/25 06:00
Levothyroxine 150 Mcg Tablet PO 06/08/25 05:59
MoTuWeThFrSa@0600 SIL
Levothyroxine Sodium 300 mcg 05/10/25 06:00 05/10/25 05:05
Levothyroxine 150 Mcg Tablet PO 06/07/25 05:59 300 mcg
NEWTON@0600 SIL Administration
Losartan Potassium 50 mg 05/11/25 08:00
Losartan 50 Mg Tablet PO 06/08/25 07:59
DAILY SIL
Ondansetron HCl 4 mg 05/09/25 15:57
Ondansetron 4 Mg/2 Ml Vial IV 06/06/25 15:56
Q6HPRN PRN
nausea and vomiting
Oxycodone HCl 20 mg 05/09/25 18:13 05/10/25 05:07
Oxycodone 10 Mg Regular Release Tablet PO 05/23/25 18:12 20 mg
Q4HPRN PRN Administration
moderate pain
Polyethylene Glycol 17 grams 05/09/25 15:57
Polyethylene Glycol Powder 17 Grams Packet PO 06/06/25 15:56
DAILYPRN PRN
constipation
Senna/Docusate Sodium 2 tablet 05/09/25 20:00 05/10/25 08:28
Docusate W/Senna (Delmi-Colace) Tablet PO 06/06/25 19:59 2 tablet
BID SIL Administration
Sodium Chloride 0 flush 05/09/25 17:00
Sodium Chloride 0.9% (Flush) Syringe IV 06/06/25 16:59
PER PROTOCOL SIL
Tiotropium Zirconia 2 puff 05/10/25 08:00 05/10/25 07:37
Tiotropium (Spiriva Respimat) 2.5 Mcg Inhaler INH 06/07/25 07:59 2 puff
R DAILY SIL Administration
Protocol
Review of Systems
-
All Other Systems: Not reviewed unless documented
Physical Exam
-
General: Well Developed, Well Nourished and No Apparent Distress
HEENT: Negative Jaundice
Cardiology: Normal Sinus Rhythm
Pulmonary: Other (decreased breath sounds at bases)
GI: Soft
Musculoskeletal: No Clubbing, No Cyanosis and No Edema
Neurology: Non Focal, No Lateralizing Symptoms and No Word Finding Difficulty
Skin: Warm and Dry; Negative Rash
Psych: Calm and Intact Judgement/Insight
Labs
Lab Results
WBC 8.3 10^3/uL (4.8-10.8) 05/09/25 09:03
RBC 3.97 10^6/uL (4.20-5.40) L 05/09/25 09:03
Hgb 12.2 g/dL (12.0-16.0) 05/09/25 09:03
Hct 37.9 % (37.0-47.0) 05/09/25 09:03
MCV 95.5 fL (81.0-99.0) 05/09/25 09:03
MCH 30.7 pg (27.0-31.0) 05/09/25 09:03
MCHC 32.2 g/dL (33.0-37.0) L 05/09/25 09:03
RDW 15.4 % (11.5-14.5) H 05/09/25 09:03
Plt Count 174 10^3/uL (130-400) 05/09/25 09:03
MPV 8.8 fL (7.4-10.4) 05/09/25 09:03
Abs Immat Gran (auto) 0.1 10^3/uL (0-0.05) H 05/09/25 09:03
Absolute Neuts (auto) 6.8 10^3/uL (1.4-6.5) H 05/09/25 09:03
Absolute Lymphs (auto) 0.6 10^3/uL (1.2-3.4) L 05/09/25 09:03
Absolute Monos (auto) 0.5 10^3/uL (0.1-0.6) 05/09/25 09:03
Absolute Eos (auto) 0.2 10^3/uL (0-0.7) 05/09/25 09:03
Absolute Basos (auto) 0.0 10^3/uL (0-0.2) 05/09/25 09:03
Immature Gran % 1.3 % (0-0.5) H 05/09/25 09:03
Neutrophils % 82.2 % (42.2-75.2) H 05/09/25 09:03
Lymphocytes % 7.7 % (20.5-51.1) L 05/09/25 09:03
Monocytes % 6.5 % (1.7-9.3) 05/09/25 09:03
Eosinophils % 1.8 % (0-6) 05/09/25 09:03
Basophils % 0.5 % (0-2) 05/09/25 09:03
Creatinine 1.0 mg/dL (0.6-1.0) 05/10/25 07:04
Vital Signs
Vital Signs
Temp Pulse Resp BP Pulse Ox
98.4 F 66 18 137/58 94
05/10/25 07:17 05/10/25 10:31 05/10/25 07:17 05/10/25 10:31 05/10/25 07:45
--- NOTE | 2025-05-10 11:53 | W.PN.UPDATE ---
Update Note
Progress Note Update
- Imaging reviewed. Bilateral effusions are on the smaller side, patient on 1L NC. Thoracentesis planned for tomorrow morning.
[2025-05-10 12:09] LABS: Glucose - Point of Care 172 mg/dl (70-99)
[2025-05-10 15:55] VITALS: BP 184/78
[2025-05-10 16:46] LABS: Glucose - Point of Care 100 mg/dl (70-99)
[2025-05-10] MEDS: NOVOLOG FLEXPEN-MODERATE RESISTANCE SC (17:00)
[2025-05-10] MEDS: LOVENOX 40 MG SC (17:52)
[2025-05-10] MEDS: LIPITOR 40 MG PO (17:52)
[2025-05-10 19:47] VITALS: BP 126/76
[2025-05-10 21:43] LABS: Glucose - Point of Care 137 mg/dl (70-99)
[2025-05-10] MEDS: GLUCOTROL 5 MG PO (22:20)
[2025-05-10 23:14] VITALS: BP 125/66
[2025-05-11] VITALS (7 sets, daily range): BP systolic 66–168; BP diastolic 31–71; PULSE 75; O2SAT 94; BMI 28.3
[2025-05-11] MEDS: APRESOLINE 50 MG PO (03:20)
[2025-05-11] MEDS: SYNTHROID 150 MCG PO (06:08)
[2025-05-11] MEDS: ROXICODONE 20 MG PO (06:14)
[2025-05-11] MEDS: COZAAR 50 MG PO (07:31)
[2025-05-11] MEDS: COREG 25 MG PO (07:31)
[2025-05-11] MEDS: LASIX 40 MG IV (07:32)
[2025-05-11] MEDS: RESTASIS 0.05% OPHTHALMIC EMULSION 1 DROPS BOTH EYES (07:32)
[2025-05-11] MEDS: ASPIR LOW (ENTERIC COATED) 81 MG PO (07:32)
[2025-05-11] MEDS: SENOKOT-S 2 TABLET PO (07:32)
[2025-05-11 07:33] LABS: Glucose - Point of Care 174 mg/dl (70-99)
[2025-05-11] MEDS: NOVOLOG FLEXPEN-MODERATE RESISTANCE 1 UNITS SC (07:33)
[2025-05-11] MEDS: SPIRIVA RESPIMAT 2.5 MCG 2 PUFF INH (07:33)
[2025-05-11] MEDS: SYMBICORT 160/4.5 MCG INHALER 2 PUFF INH (07:34)
[2025-05-11 07:55] LABS: ALT (SGPT) 13 U/L (0-35); AST (SGOT) 20 U/L (14-36); Albumin 3.3 g/dl (3.5-5.0); Alkaline Phosphatase 96 U/L (38-126); Blood Urea Nitrogen 21 mg/dl (7-17); Calcium 8.6 mg/dl (8.4-10.2); Carbon Dioxide 29 mmol/L (22-30); Chloride 109 mmol/L (98-107); Estimated Creatinine Clearance 42 ml/min; Glucose 146 mg/dl (70-99); LDH 263 U/L (120-246); Potassium 4.0 mmol/L (3.5-5.1); Sodium 141 mmol/L (135-145); Total Protein 6.1 g/dl (6.3-8.2); eGFR 54.53
--- NOTE | 2025-05-11 09:31 | W.PN.ONC2 ---
Today's Communication / Plan
-
discharge planning
Impression
Impression
locally advance lung cancer, started Keytruda mid April 2025
dyspnea prompting hospital admission, bilateral pleural effusions
intermittent chest pain
chronic back pain
Plan
Plan
agree w/ plan for IR thoracentesis; would send fluid for cytology
negative troponins suggest chest pain is not cardiac. May be related to lung cancer
opioids (home meds) for chronic back pain
will reschedule her 05/11 Keytruda dose once she's discharged
Subjective/Objective
Subjective
SOB resolved and on room air s/p thora
chest pain has also resolved
Vital Signs:
Vital Signs
Temp Pulse Resp BP Pulse Ox
98.9 F 68 20 112/31 97
05/11/25 09:10 05/11/25 09:10 05/11/25 09:10 05/11/25 09:10 05/11/25 09:10
Lab Results:
Laboratory Data
WBC 8.3 10^3/uL (4.8-10.8) 05/09/25 09:03
Hgb 12.2 g/dL (12.0-16.0) 05/09/25 09:03
Plt Count 174 10^3/uL (130-400) 05/09/25 09:03
eGFR 54.53 05/11/25 06:43
Physical Exam
HEENT: Moist Mucous Membranes; No Jaundice
Pulmonary: Other (unlabored)
GI: Soft
Extremities: Pulses Present; No Edema
Neuro: Non Focal
--- NOTE | 2025-05-11 11:01 | CM ---
Addendum entered by Haylie Mendez 05/11/25 15:26:
PT eval - no needs
IMM explained & signed. In chart
PLAN: Home, no needs
family to transport
Original Note:
Patient seen at bedside
Dx: SOB, pleural effusion, lung cA
PMH: former smoking, COPD, recently diagnosed lung cancer on immunotherapy, hypertension, hyperlipidemia, diabetes, ckd
PT did not eval yet as patient just returned from thoracentesis
IA completed
Lives at home with and daughter, 2 story, 4 steps to enter & has stair glide
PLOF: Independent with walker
DME: Walker, wheelchair, stair glide, commode, shower chair
Denies VN/has had Rehab in past does not recall facility
PCP: Chyna Nichols
Pharmacy: [address], [place]
PLAN: Await PT alfredito CM to follow for needs
--- NOTE | 2025-05-11 11:39 | W.PN.HOSP.TC ---
Today's Communication/Plan
-
await further plan by onc
Assessment / Plan
Assessment / Plan
HPI: 89-year-old female with a past medical history of former smoking, COPD, recently diagnosed lung cancer on immunotherapy, hypertension, hyperlipidemia, diabetes, and chronic kidney disease with only right kidney functioning who presents with a 1
day history of shortness of breath and chest pain. Patient reports that her shortness of breath and chest pain started last night, and has since worsened. Found b/l pleural effusions, most likely malignant s/p thoracentesis on 05/11/25 with
improvement in breathing
A/P:
#Shortness of breath
#Bilateral pleural effusions, left greater than right, likely malignant
#Acute hypoxic respiratory insufficiency
#Locally advanced lung cancer
s/p thora on 05/11/25, follow labs
switch lasix IV to oral home dose as patient unlikely with cardiogenic SOB
weaned off O2
Follows with Dr. Maria Fernanda Miller, started Keytruda mid April 2025
Oncology following
#Chest pain
Troponins negative
Suspect from her lung cancer, continue pain medications
#Chronic back pain
Follows with Dr. Dunaway pain management
Continue home pain regimen, laxatives
#Stage III chronic kidney disease
#Nonfunctioning left kidney
Trend creatinine, trend daily weights
#Essential hypertension
Blood pressure elevated, will increase losartan to 50 mg daily, continue Coreg 25 mg twice a day
#COPD
Continue bronchodilators
#Hypothyroidism
TSH normal, continue levothyroxine
#Hyperlipidemia
Continue statin
#Anxiety/depression
Continue SSRI
#Diabetes
Hemoglobin A1c 6.7
Continue glipizide 5 mg daily, sliding scale insulin
DVT prophylaxis�subcu Lovenox
DNR confirmed upon admission
Updated at bedside 05/10
Discussed with oncology 05/10
Total time spent to see the patient on the floor, examine the patient, review data and lab results, discuss treatment plan with patient, nursing staff around 55 minutes.
Anticipated Discharge: 24 - 48 hours
Subjective/Interval History
-
Date of Service: May 11, 2025
Objective Data
-
Labs:
Laboratory Results
05/11/25
06:43
Sodium 141
Potassium 4.0
Chloride 109 H
Carbon Dioxide 29
BUN 21 H
Creatinine 1.0
Glucose 146 H
Calcium 8.6
Total Bilirubin 0.8
AST 20
ALT 13
Alkaline Phosphatase 96
Vital Signs:
Vital Signs
Temp Pulse Resp BP Pulse Ox
98.9 F 66 16 133/39 97
05/11/25 09:10 05/11/25 09:45 05/11/25 09:45 05/11/25 09:45 05/11/25 09:45
I&O
05/10/25 05/11/25 05/12/25
06:59 06:59 06:59
Intake Total 960 / 960 1280 / 1280
Output Total 2550 / 2550 1075 / 1075
Balance -1590 / -1590 205 / 205
Review of Systems
-
History Source: Patient
All other systems: Reviewed and negative
Physical Exam
-
General: No Apparent Distress
HEENT: Normocephalic
Respiratory: Clear to Auscultation
GI: Soft, Nontender and Nondistended
Neuro: Awake, Alert, Oriented and AO x 3
Psych: Calm
[2025-05-11 11:52] LABS: Glucose - Point of Care 106 mg/dl (70-99)
[2025-05-11] MEDS: NOVOLOG FLEXPEN-MODERATE RESISTANCE SC (11:53)
--- NOTE | 2025-05-11 14:33 | W.DCSUMMARY ---
Discharge Summary
Discharge Data
Date of Admission: 05/09/25
Date of Discharge: 05/11/25
-
Pending Results: Yes
Additional Pending Results:
pleural fluid
Hospital Course
89-year-old female with a past medical history of former smoking, COPD, recently diagnosed lung cancer on immunotherapy, hypertension, hyperlipidemia, diabetes, and chronic kidney disease with only right kidney functioning who presents with a 1 day
history of shortness of breath and chest pain. Patient reports that her shortness of breath and chest pain started last night, and has since worsened. Found b/l pleural effusions, most likely malignant s/p thoracentesis on 05/11/25 with improvement
in breathing. Also developed diarrhea, however started on Docusate with senna scheduled while in hospital. C.diff PCR pos, toxin neg, with immunosupression 2/2 CA - reasonable to treta with 10 days oral vanco. Outpatient follow up with On[facility] for
Keytruda and CA mgmt. Medcially stable for d/c
Total time spent to see the patient on the floor, examine the patient, review data and lab results, discuss treatment plan with patient, nursing staff around 55 minutes.
Patient was mnaged for:
#Shortness of breath
#Bilateral pleural effusions, left greater than right, likely malignant
#Acute hypoxic respiratory insufficiency
#Locally advanced lung cancer
#Chest pain
#Chronic back pain
#Stage III chronic kidney disease
#Nonfunctioning left kidney
#Essential hypertension
#COPD
#Hypothyroidism
#Hyperlipidemia
#Anxiety/depression
#Diabetes type 2 with unspecified compliacations
Discharge Plan
-
Patient Disposition: Home (Routine Discharge)
Discharge Diagnosis/Procedures: Malignant effusin
Diet: Diabetic, Carb Controlled
Referrals:
Maria Fernanda Miller MD [Active, Oncology] - in one to two days
Chyna Nichols DO [Family Provider, Family Practice]
Prescriptions:
New
vancomycin 125 mg capsule
125 mg PO QID Qty: 40 0RF
losartan 50 mg Tablet
50 mg PO DAILY Qty: 30 0RF
cyclosporine 0.05 % Dropperette
1 drops BOTH EYES BID Qty: 0 0RF
Continued
atorvastatin 40 MG tablet
40 mg PO HS
levothyroxine [Synthroid] 150 mcg Tablet
150 mcg PO MOTUWETHFRSA
levothyroxine [Synthroid] 150 mcg Tablet
300 mcg PO NEWTON
glipizide 5 mg Tablet
5 mg PO QPM
oxycodone 20 mg Tablet
20 mg PO Q4HPRN PRN (Reason: severe pain)
multivitamin Tablet
1 tab PO DAILY
Patient Comments:
05/09/2025, women's mv.
furosemide 40 mg Tablet
40 mg PO DAILY
carvedilol 25 mg Tablet
25 mg PO BID
docusate sodium [Colace] 100 mg Capsule
100 mg PO Q48H
polyvinyl alcohol 1.4 % Drops
2 drp BOTH EYES HS
aspirin 81 mg Tablet,Delayed Release (Dr/Ec)
81 mg PO HS
acetaminophen [Tylenol Extra Strength] 500 mg Tablet
1,000 mg PO BIDPRN PRN (Reason: mild pain)
cyclosporine 0.05 % dropperette
1 drp BOTH EYES BID
ZzzQuil 50 mg/30 mL Liquid
50 mg PO HS PRN (Reason: sleep)
Trelegy Ellipta 100-62.5-25 mcg blister with device
1 inh INHALATION R DAILY
Unknown Infusion
1 dose IV Q3W
Patient Comments:
05/09/2025, pt. gets infusion through [facility] but she is unsure of its name and dose.
Discontinued
losartan 25 mg Tablet
25 mg PO DAILY
Discharge Orders:
Discharge Patient (As Directed); Ordered 05/11/25
Ordered By: Jose Enrique Evans
Discharge Date and Time
Print Language: GERMAN
== END 2025-05-11 15:33 | disposition home or self-care (01) | DRG 181 ==
LOC: 4 EAST ACU 16:28
PROVIDERS: Physician Assistant; Radiology Vascular & Interventional Radiology; ADMITTING PHYSICIAN Family Medicine; ATTENDING PHYSICIAN Internal Medicine; CONSULT PHYSICIAN Internal Medicine Hematology & Oncology; EMERGENCY PHYSICIAN Student in an Organized Health Care Education/Training Program; FAMILY PHYSICIAN Family Medicine
PROC: 0W9B3ZZ Drainage of Left Pleural Cavity, Percutaneous Approach (ICD-10-PCS; 2025-05-11)
DX: C34.90 Malignant neoplasm of unspecified part of unspecified bronchus or lung (principal); J91.0 Malignant pleural effusion; Z87.891 Personal history of nicotine dependence; R09.02 Hypoxemia; R06.89 Other abnormalities of breathing; I12.9 Hypertensive chronic kidney disease with stage 1 through stage 4 chronic kidney disease, or unspecified chronic kidney disease; N18.30 Chronic kidney disease, stage 3 unspecified; J44.9 Chronic obstructive pulmonary disease, unspecified; E03.9 Hypothyroidism, unspecified; F41.9 Anxiety disorder, unspecified; F32.A Depression, unspecified; Z66 Do not resuscitate; G89.29 Other chronic pain; M54.16 Radiculopathy, lumbar region
CPT/HCPCS: 32555; 36415; 71045; 71046; 71275; 80048; 80053; 82248; 82962; 83036; 83615; 83735; 83880; 84157; 84443; 84484; 85025; 85379; 87324; 87449; 88112; 88305; 88341; 88342; 89055; 93005; 94640; 96374; 97162; 99285; Q9967

== ENCOUNTER 2025-05-16 11:52 | Emergency (ER) | payer MEDICARE, OTHER, SELFPAY ==
[2025-05-16 11:55] VITALS: BP 138/51
[2025-05-16 12:34] VITALS: BMI 29.7
--- NOTE | 2025-05-16 12:39 | EDRN ---
When doing visual test pt was not able to identify letter in center of line in each row w/ bilateral eyes. Pt wore glasses for eye test and R eye was worse than her L eye.
[2025-05-16 13:07] VITALS: BP 170/66
--- NOTE | 2025-05-16 13:35 | EDRN ---
Dr. Miller in room w/ pt at this time.
--- NOTE | 2025-05-16 13:57 | ED.GENMED ---
History of Present Illness
General
Chief Complaint: Eye Problems
Source: patient
Time Seen by Provider: 05/16/25 13:16
History of Present Illness
History of Present Illness:
89-year-old female presents to the emergency room complaining of pain and blurred vision in her left eye. Patient began experiencing this 2 to 3 days ago. She called her eye doctor at [facility] and was given an appointment in September. She
went to her primary care provider today who referred her here to the emergency room. Patient states the discomfort in her left eye is fairly significant. Her vision is quite blurry of the left eye. Her vision is unchanged out of her right eye.
She denies any generalized headache or head pain. She has no rash that she knows of.
Past History
Past History
ED Past Medical History: COPD, HTN, Hypercholesterolemia, IDDM, Hypothyroidism, Other (Chronic kidney disease, Pancreatitis, Ileus, PSTV) and Other (Chronic lumbar radiculopathy, in pain management w/ Dr Dunaway)
ED Past Surgical History: Cholecystectomy, Orthopedic (Lumbar Laminectomy L3-5,) and Other (Only one kidney)
Social History
Tobacco: Former smoker
Alcohol: None
Personal:
Living: with family
Family History
Family History: Negative Diabetes, Hypertension or CAD
Phy Exam
Physical Exam
Physical Exam:
General: Awake, Alert, Oriented X3. No acute distress.
Vitals: unremarkable
Head: Atraumatic
Eyes: Pupils equal, EOMI. mild injection of the left conjunctiva. Patient examined with a slit lamp. Even on direct inspection there appears to be a bit of haziness over the central cornea. There is minor flare in the anterior chamber.
Intraocular pressure of the right eye is 12. Intraocular pressure of the left eye is 8. Inspection with fluorescein reveals a dendritic lesion in the central portion of the eye over the pupillary axis. This has intense uptake
Throat: Airway intact, no exudates
Neck: Trachea midline
Neuro: Nonfocal
Skin: Warm, dry, no rash
Extremities: pulses equal b/l, no edema
Course
Orders/Labs/Results
Orders:
Orders
05/16/25 14:02
Fluorescein Sodium [Ful-Rosa] 1 mg .ROUTE .STK-MED ONE
05/16/25 14:11
Valacyclovir HCl [Valtrex] 1,000 mg PO NOW STA
Vital Signs
Initial and Last Documented VS:
Initial Vital Signs
Temp Pulse Resp BP Pulse Ox
98.0 F 66 16 138/51 98
05/16/25 11:55 05/16/25 11:55 05/16/25 11:55 05/16/25 11:55 05/16/25 11:55
Last Documented Vital Signs
Temp Pulse Resp BP Pulse Ox
98.0 F 64 16 150/58 97
05/16/25 11:55 05/16/25 14:14 05/16/25 14:14 05/16/25 14:14 05/16/25 14:14
MDM/Problems Addressed
Differential Diagnosis Includes:
Corneal ulcer, zoster ophthalmicus, corneal abrasion
MDM/Problems Addressed:
Patient presents with discomfort, blurred vision left eye. Exam reveals dendritic lesion in the central portion of the eye. Discussed with Dr. Treviño who is on-call for [facility] ophthalmology who is the patient's ophthalmology office. She
will arrange for the patient to be seen Sunday. In the meantime recommends valacyclovir. Patient given a dose here and sent with a prescription. Dr. Treviño would like to hold off on topical drops and steroids at this point until the patient is
evaluated in the office.
*Pulse Oximetry
SaO2: 96
Oxygen Mode of Delivery: Room air
Patient hypoxic: no
*Critical Care Note
Total Time (30-74mins, 75-104mins- exclusive of procedures): Not Applicable
ED Attending Note
-
Portions of this chart may have been created with voice recognition software.� Occasional wrong word or��sound alike� substitutions may have occurred due to the inherent limitations of voice recognition software.
Discharge Plan
Departure
Patient Disposition: Home (Routine Discharge)
Date of Disposition: 05/16/25
Time of Disposition: 14:14
Patient with high blood pressure during this ER visit?: Yes
Condition: Good
Discharge Problem:
Herpes zoster ophthalmicus, left eye
Instructions: Herpes Keratitis
Prescriptions:
New
valacyclovir [Valtrex] 1 gram tablet
1,000 mg PO TID Qty: 21 0RF
No Action
atorvastatin 40 MG tablet
40 mg PO HS
levothyroxine [Synthroid] 150 mcg Tablet
150 mcg PO MOTUWETHFRSA
levothyroxine [Synthroid] 150 mcg Tablet
300 mcg PO NEWTON
glipizide 5 mg Tablet
5 mg PO QPM
oxycodone 20 mg Tablet
20 mg PO Q4HPRN PRN (Reason: severe pain)
multivitamin Tablet
1 tab PO DAILY
Patient Comments:
05/09/2025, women's mv.
furosemide 40 mg Tablet
40 mg PO DAILY
carvedilol 25 mg Tablet
25 mg PO BID
docusate sodium [Colace] 100 mg Capsule
100 mg PO Q48H
polyvinyl alcohol 1.4 % Drops
2 drp BOTH EYES HS
aspirin 81 mg Tablet,Delayed Release (Dr/Ec)
81 mg PO HS
acetaminophen [Tylenol Extra Strength] 500 mg Tablet
1,000 mg PO BIDPRN PRN (Reason: mild pain)
cyclosporine 0.05 % dropperette
1 drp BOTH EYES BID
ZzzQuil 50 mg/30 mL Liquid
50 mg PO HS PRN (Reason: sleep)
Trelegy Ellipta 100-62.5-25 mcg blister with device
1 inh INHALATION R DAILY
Unknown Infusion
1 dose IV Q3W
Patient Comments:
05/09/2025, pt. gets infusion through [facility] but she is unsure of its name and dose.
vancomycin 125 mg capsule
125 mg PO QID Qty: 40 0RF
losartan 50 mg Tablet
50 mg PO DAILY Qty: 30 0RF
cyclosporine 0.05 % Dropperette
1 drops BOTH EYES BID Qty: 0 0RF
Referrals:
Chyna Nichols DO [Family Provider, Family Practice]
Kunal Issa MD [[facility], Surgical]
Activity Restrictions/Additional Instructions:
You should receive a call Sunday from [facility] eye doctors to arrange an appointment on Sunday. We have sent a prescription for antiviral medications which you need to take 3 times a day.
Interventions
Interventions:
*Risk Screen - Suicide Last Done: 05/16/25 12:34
*General Assessment Last Done: 05/16/25 12:34
*Neglect/Abuse Screening Last Done: 05/16/25 12:34
*ED- Fall Risk Assessment Last Done: 05/16/25 12:34
*ED COVID-19 Vaccine History Last Done: 05/16/25 12:34
*Nursing Disposition Last Done: 05/16/25 14:38
Discharge Date and Time
Discharge Date/Time: 05/16/25 14:39
Print Language: TAJIK
[2025-05-16 14:14] VITALS: BP 150/58
[2025-05-16] MEDS: VALTREX 1000 MG PO (14:21)
--- NOTE | 2025-05-16 14:32 | EDRN ---
Dr. Miller in room w/pt at this time.
== END 2025-05-16 14:39 | disposition home or self-care (01) ==
LOC: EMR 11:52
PROVIDERS: EMERGENCY PHYSICIAN Emergency Medicine; FAMILY PHYSICIAN Family Medicine
DX: B02.30 Zoster ocular disease, unspecified (principal); E03.9 Hypothyroidism, unspecified; E11.22 Type 2 diabetes mellitus with diabetic chronic kidney disease; I12.9 Hypertensive chronic kidney disease with stage 1 through stage 4 chronic kidney disease, or unspecified chronic kidney disease; N18.9 Chronic kidney disease, unspecified; E78.00 Pure hypercholesterolemia, unspecified; J44.9 Chronic obstructive pulmonary disease, unspecified; Z87.891 Personal history of nicotine dependence; Z79.4 Long term (current) use of insulin
CPT/HCPCS: 99283

== ENCOUNTER → 2025-06-05 08:52 | Outpatient (REF) | payer MEDICARE, OTHER, SELFPAY ==
[2025-06-05 10:11] LABS: Hematocrit 36.6 % (37.0-47.0); Hemoglobin 11.4 g/dL (12.0-16.0); Mean Corp Hgb Conc. 31.1 g/dL (33.0-37.0); Mean Corpuscular Volume 99.2 fL (81.0-99.0); Nucleated Red Blood Cells % 0 %; Platelet Count 123 10^3/uL (130-400); Red Cell Dist. Width 16.9 % (11.5-14.5)
[2025-06-05 10:45] LABS: ALT (SGPT) 12 U/L (0-35); AST (SGOT) 22 U/L (14-36); Albumin 3.3 g/dl (3.5-5.0); Alkaline Phosphatase 80 U/L (38-126); Blood Urea Nitrogen 29 mg/dl (7-17); Calcium 8.2 mg/dl (8.4-10.2); Carbon Dioxide 31 mmol/L (22-30); Chloride 109 mmol/L (98-107); Glucose 146 mg/dl (70-99); Potassium 4.5 mmol/L (3.5-5.1); Sodium 144 mmol/L (135-145); Total Protein 6.1 g/dl (6.3-8.2); eGFR 39.80
== END ==
LOC: REG 08:52
PROVIDERS: ATTENDING PHYSICIAN Internal Medicine Hematology & Oncology; FAMILY PHYSICIAN Family Medicine
DX: R91.1 Solitary pulmonary nodule (principal); C34.11 Malignant neoplasm of upper lobe, right bronchus or lung; E03.9 Hypothyroidism, unspecified
CPT/HCPCS: 36415; 80053; 84443; 85025

== ENCOUNTER → 2025-06-29 13:56 | Outpatient (REF) | payer MEDICARE, OTHER, SELFPAY ==
[2025-06-29 14:40] LABS: Hematocrit 38.6 % (37.0-47.0); Hemoglobin 12.1 g/dL (12.0-16.0); Mean Corp Hgb Conc. 31.3 g/dL (33.0-37.0); Mean Corpuscular Volume 96.7 fL (81.0-99.0); Nucleated Red Blood Cells % 0 %; Platelet Count 134 10^3/uL (130-400); Red Cell Dist. Width 15.1 % (11.5-14.5)
[2025-06-29 14:56] LABS: ALT (SGPT) 17 U/L (0-35); AST (SGOT) 25 U/L (14-36); Albumin 3.6 g/dl (3.5-5.0); Alkaline Phosphatase 101 U/L (38-126); Blood Urea Nitrogen 28 mg/dl (7-17); Calcium 8.3 mg/dl (8.4-10.2); Carbon Dioxide 31 mmol/L (22-30); Chloride 106 mmol/L (98-107); Glucose 110 mg/dl (70-99); Potassium 4.1 mmol/L (3.5-5.1); Sodium 141 mmol/L (135-145); Total Protein 6.3 g/dl (6.3-8.2); eGFR 43.81
== END ==
LOC: OIDL 13:56
PROVIDERS: ATTENDING PHYSICIAN Internal Medicine Hematology & Oncology
DX: E03.9 Hypothyroidism, unspecified (principal)
CPT/HCPCS: 80053; 84443; 85025

== ENCOUNTER 2025-07-14 15:05 | Inpatient (IN) | payer MEDICARE, OTHER, SELFPAY ==
[2025-07-14] VITALS (10 sets, daily range): BP systolic 135–189; BP diastolic 50–72
[2025-07-14 09:48] LABS: COVID-19 Antigen Negative (Negative)
--- NOTE | 2025-07-14 09:53 | ED.GENMED ---
History of Present Illness
General
Chief Complaint: Breathing Problem
Source: patient and spouse
Exam Limitations: none
Time Seen by Provider: 07/14/25 09:22
History of Present Illness
History of Present Illness:
89-year-old female with increased shortness of breath that started this morning. Was fine last night when she went to bed. Being treated for lung CA. Gets infusions every 3 weeks. Small amount of hemoptysis this morning. No fever. Some cough.
Some ongoing midsternal chest pain with this. History of thoracentesis
Past History
Past History
ED Past Medical History: COPD, HTN, Hypercholesterolemia, IDDM, Hypothyroidism, Other (Chronic kidney disease, Pancreatitis, Ileus, PSTV) and Other (Chronic lumbar radiculopathy, in pain management w/ Dr Dunaway)
ED Past Surgical History: Cholecystectomy, Orthopedic (Lumbar Laminectomy L3-5,) and Other (Only one kidney)
Social History
Tobacco: Former smoker
Alcohol: None
Personal:
Living: with family
Family History
Family History: Negative Diabetes, Hypertension or CAD
Review of Systems
Review of Systems
All Other Systems: Not applicable
Constitutional: Denies fever or chills
ABD/GI: Reports no symptoms
Phy Exam
Physical Exam
Physical Exam:
GENERAL: Alert and oriented in no apparent distress. Currently on 2 L nasal cannula
EYE: Orbits normal.
NECK: Supple, no significant adenopathy.
ENT: Pharynx without erythema
CARDIAC: Regular rate and rhythm without any obvious murmurs.
LUNGS: Ongoing dry cough at times with some coarse expiratory rhonchi bilaterally
ABDOMEN: Soft, without focal tenderness or distention
NEUROLOGICAL: Alert and oriented , grossly non-focal
SKIN: Warm and dry, no rash or lesion, no discoloration, skin intact.
MUSCULOSKELETAL: Chronic edema without pitting left leg greater than right. Good distal pulses and color
PSYCH: Normal and appropriate interaction.
Scores
Heart Failure Risk
Heart Failure Risk Score: Not Applicable
Course
Orders/Labs/Results
Orders:
Orders
07/14/25 09:11
Electrocardiogram (*1) Urgent
Reason for Study: Chest Pain
EKG- Treatment ONCE
07/14/25 09:20
COVID-19 Antigen Urgent
Source: Nasal Swab
Complete Blood Count/With Diff Urgent
Comprehensive Metabolic Panel Urgent
NT-proBNP Urgent
Troponin I Urgent
07/14/25 09:52
CXR2 [CR Chest - 2 Views ] Urgent
Comment:
Reason For Exam: sob
07/14/25 10:09
Furosemide [Lasix] 40 mg IV NOW STA
Ipratropium/Albuterol Sulfate [Duoneb] 3 ml INH R NOW ONE
07/14/25 10:38
Azithromycin 500 mg/250 ml [Zithromax Infusion] 500 mg in 250 ml IV NOW
CefTRIAXone [Rocephin] 1,000 mg IV NOW STA
07/14/25 11:05
Blood Culture Q30M
TAHIR Source: Blood/Venous
Specimen Description:
Blood Culture Q30M
TAHIR Source: Blood/Venous
Specimen Description:
Abnormal Lab Results
07/14/25
09:20
RBC 3.88 L 10^6/uL
(4.20-5.40)
Hgb 11.6 L g/dL
(12.0-16.0)
MCHC 31.1 L g/dL
(33.0-37.0)
Absolute Neuts (auto) 8.1 H 10^3/uL
(1.4-6.5)
Absolute Lymphs (auto) 0.4 L 10^3/uL
(1.2-3.4)
Absolute Monos (auto) 0.9 H 10^3/uL
(0.1-0.6)
Neutrophils % 82.2 H %
(42.2-75.2)
Lymphocytes % 3.9 L %
(20.5-51.1)
Chloride 109 H mmol/L
(98-107)
Carbon Dioxide 31 H mmol/L
(22-30)
BUN 22 H mg/dl
(7-17)
Creatinine 1.2 H mg/dL
(0.6-1.0)
Glucose 152 H mg/dl
(70-99)
Total Protein 5.9 L g/dl
(6.3-8.2)
Albumin 3.1 L g/dl
(3.5-5.0)
07/14/25 09:20
07/14/25 09:20
Vital Signs
Initial and Last Documented VS:
Initial Vital Signs
Temp Pulse Resp BP Pulse Ox
98.1 F 77 20 177/65 93
07/14/25 09:03 07/14/25 09:03 07/14/25 09:03 07/14/25 09:03 07/14/25 09:03
Last Documented Vital Signs
Temp Pulse Resp BP Pulse Ox
98.1 F 65 13 144/60 96
07/14/25 09:03 07/14/25 13:30 07/14/25 09:11 07/14/25 13:00 07/14/25 13:30
MDM/Problems Addressed
Differential Diagnosis Includes:
Increased shortness of breath and oxygen demands this morning. Large differential including critical pleural effusion,'s PE, pneumothorax, pneumonia, heart failure. Workup in progress.
*Pulse Oximetry
SaO2: 93
Oxygen Mode of Delivery: Room air
Patient hypoxic: yes
*EKG
Interpreted by ED Provider?: Yes
Interpretation: abnormal
Comparison EKG: changes noted
Heart Rate: 71
Rate: normal
Rhythm: sinus and PAC's
Blain: normal axis
Interval: normal interval
QRS Pattern: normal QRS
Ischemia: non-specific ST changes
*Licensed Appraiser Interpretation
Rate: normal
Interpretation: normal
Heart Rate: 77
Rhythm: sinus
*Critical Care Note
Total Time (30-74mins, 75-104mins- exclusive of procedures): Not Applicable
Data Reviewed
Review of Other/Old Records Reveals: Labs, Records, Radiology Studies and Testing
Update Note
Update Note:
I did consider pulmonary emboli. However feel it is unlikely. She has no new leg swelling cords or tenderness. She is not tachycardic. She has had previous evaluations for similar symptoms that have not had pulmonary emboli. She has had
multiple CAT scans and will try to limit radiation.
ED Attending Note
-
Portions of this chart may have been created with voice recognition software.� Occasional wrong word or��sound alike� substitutions may have occurred due to the inherent limitations of voice recognition software.
Discharge Plan
Departure
Patient Disposition: Admit
Date of Disposition: 07/14/25
Time of Disposition: 10:33
Presentation/result/management discussed w/ accepting MD/DO: Hospitalist
Discharge Problem:
Respiratory distress, Pneumonitis/lung CA, Possible CHF
Prescriptions:
No Action
atorvastatin 40 MG tablet
40 mg PO HS
levothyroxine [Synthroid] 150 mcg Tablet
150 mcg PO MOTUWETHFRSA@0600
levothyroxine [Synthroid] 150 mcg Tablet
300 mcg PO NEWTON@0600
glipizide 5 mg Tablet
2.5 mg PO DAILY@1700
oxycodone 20 mg Tablet
20 mg PO QID
multivitamin Tablet
1 tab PO DAILY
Patient Comments:
05/09/2025, women's mv.
furosemide 40 mg Tablet
40 mg PO DAILY
docusate sodium [Colace] 100 mg Capsule
100 mg PO DAILY
aspirin 81 mg Tablet,Delayed Release (Dr/Ec)
81 mg PO HS
acetaminophen [Tylenol Extra Strength] 500 mg Tablet
1,000 mg PO BIDPRN PRN (Reason: mild pain)
cyclosporine 0.05 % dropperette
1 drp BOTH EYES BID
Trelegy Ellipta 100-62.5-25 mcg blister with device
1 inh INHALATION R DAILY
Unknown Infusion
1 dose IV Q3W
losartan 50 mg Tablet
50 mg PO DAILY Qty: 30 0RF
carvedilol 12.5 mg tablet
12.5 mg PO BID
erythromycin 5 mg/gram (0.5 %) ointment
1 applic BOTH EYES HS
Artificial Tears (PF) Dropperette
1 drp BOTH EYES QIDPRN PRN (Reason: dry eyes)
oxycodone 20 mg tablet
20 mg PO BIDPRN PRN (Reason: severe pain)
Referrals:
Chyna Nichols DO [Family Provider, Family Practice]
Interventions
Interventions:
*Risk Screen - Suicide Last Done: 07/14/25 09:03
*General Assessment Last Done: 07/14/25 09:03
*Neglect/Abuse Screening Last Done: 07/14/25 09:03
*ED- Fall Risk Assessment Last Done: 07/14/25 12:47
*ED COVID-19 Vaccine History Last Done: 07/14/25 12:47
ED- Cardiac Assessment Last Done: 07/14/25 09:00
ED- Pulmonary Assessment Last Done: 07/14/25 09:00
Discharge Date and Time
Print Language: NAMIBIAN
[2025-07-14 10:03] LABS: ALT (SGPT) 15 U/L (0-35); AST (SGOT) 26 U/L (14-36); Albumin 3.1 g/dl (3.5-5.0); Alkaline Phosphatase 100 U/L (38-126); Blood Urea Nitrogen 22 mg/dl (7-17); Calcium 8.4 mg/dl (8.4-10.2); Carbon Dioxide 31 mmol/L (22-30); Chloride 109 mmol/L (98-107); Estimated Creatinine Clearance 37 ml/min; Glucose 152 mg/dl (70-99); Potassium 4.0 mmol/L (3.5-5.1); Sodium 142 mmol/L (135-145); Total Protein 5.9 g/dl (6.3-8.2); Troponin I 0.017 ng/ml; eGFR 43.81
[2025-07-14] MEDS: LASIX 40 MG IV (10:42)
[2025-07-14] MEDS: DUONEB 3 ML INH (10:42)
[2025-07-14 10:54] LABS: Hematocrit 37.3 % (37.0-47.0); Hemoglobin 11.6 g/dL (12.0-16.0); Mean Corp Hgb Conc. 31.1 g/dL (33.0-37.0); Mean Corpuscular Volume 96.1 fL (81.0-99.0); Nucleated Red Blood Cells % 0 %; Platelet Count 169 10^3/uL (130-400); Red Cell Dist. Width 14.4 % (11.5-14.5)
[2025-07-14] MEDS: ROCEPHIN 1000 MG IV (11:12)
[2025-07-14] MEDS: ZITHROMAX INFUSION 250 IV (11:21)
--- NOTE | 2025-07-14 13:46 | HPS.HSE ---
Addendum entered and electronically signed by Richard Momin MD 07/14/25 14:57:
I saw and examined the patient.
The residents note was reviewed and I agree with the note.
Comment:
89-year-old female, Being treated for lung CA. Gets infusions every 3 weeks, now with increased shortness of breath that started this morning. Associated symptoms include hemoptysis. Ongoing midsternal chest pressure despite lasix. ECHO in 01/2025
with no WMA, EF WNL. Mild hypoxia noted; Imaging noted to have possible pneumonia v known lung mass along with New parenchymal opacity in the right mid to lower lung, most likely representing pneumonia. Smal b/l pleural effusions. Labs consistent
with proBNP of 3300, was in the low 1999's last admission.
Plan�trend troponins. Repeat echocardiogram now that on chemotherapy. Vancomycin, Zosyn, MRSA swab. Incentive spirometer, Acapella. Sputum cultures. Continue 40 IV Lasix daily for now. PE study.
Original Note:
Family Physician
-
Family Physician: Chyna Nichols
Chief Complaint
-
SOB, chest pain/pressure
History of Present Illness
89 year old female with history of Lung Ca (May 2025) on chemotherapy, COPD, former smoker, HTN, Hypercholesterolemia, NIDDM, hypothyroidism, CKD3, One functioning kidney, pancreatitis, remote history of TIA, lumbar radiculopathy, chronic bilateral
LE edema, anxiety/depression, who presents to the ED for shortness of breath at rest with mid-sternal to epigastric pain. Patient has exertional dyspnea at rest but yesterday noticed difficulty breathing while at rest. She does have recent diagnosis
of lung cancer for which she is on chemotherapy infusions Q3 weeks. Last chemo session was 29 June. She did have some hemoptysis some days ago but denies ongoing cough. Denies fever, nausea/vomiting, or known sick contacts.
She is not on Oxygen at home.
Medical History
Past Medical History
Past Medical History: Reports Cancer (lung), COPD, HTN, Hypercholesterolemia, Hypothyroidism, NIDDM and Other (CKD3, single functioning kidney, lumbar radiculopathy, chronic bilateral LE edema, pancreatitis)
Past Surgical History: Reports Cholecystectomy and Orthopedic (lumbar laminectomy)
Social History
Tobacco: Former Smoker
Alcohol: None
Drug: None
Personal:
Living: With Family
Family History
Family History: Not pertinent
Allergies / Home Medications
Allergies reflects when Allergies were last updated in [facility].
Home Medications with original date entered in [facility]
Allergy/Medication List:
Allergies
Allergy/AdvReac Type Severity Reaction Status Date / Time
No Known Allergies Allergy Verified 07/14/25 09:11
Home Medications
atorvastatin 40 mg tablet 40 mg PO HS High cholesterol 10/09/18
glipizide 5 mg tablet 2.5 mg PO DAILY@1700 Diabetes 06/27/22
levothyroxine 150 mcg tablet (Synthroid) 150 mcg PO MOTUWETHFRSA@0600 Thyroid 06/27/22
levothyroxine 150 mcg tablet (Synthroid) 300 mcg PO NEWTON@0600 Thyroid 06/27/22
oxycodone 20 mg tablet 20 mg PO QID 06/27/22
docusate sodium 100 mg capsule (Colace) 100 mg PO DAILY Constipation 02/26/25
furosemide 40 mg tablet 40 mg PO DAILY Fluid Retention/Swelling 02/26/25
multivitamin 1 tab PO DAILY Supplement 02/26/25
Unknown Infusion 1 dose IV Q3W 05/09/25
acetaminophen 500 mg tablet (Tylenol Extra Strength) 1,000 mg PO BIDPRN PRN mild pain 05/09/25
aspirin 81 mg tablet,delayed release 81 mg PO HS Blood Clot Prevention/Tx 05/09/25
cyclosporine 0.05 % eye drops in a dropperette 1 drp BOTH EYES BID Eye Condition 05/09/25
fluticasone fur. 100 mcg-umeclid 62.5 mcg-vilant 25 mcg inhalat.powder (Trelegy Ellipta) 1 inh inhalation R DAILY Lung/Breathing Issues 05/09/25
losartan 50 mg tablet 50 mg PO DAILY #30 tabs 05/11/25
carvedilol 12.5 mg tablet 12.5 mg PO BID 07/14/25
dextran 70-hypromellose eye drops in a dropperette (Artificial Tears (PF) drops in a dropperette) 1 drp BOTH EYES QIDPRN PRN dry eyes 07/14/25
erythromycin 5 mg/gram (0.5 %) eye ointment 1 applic BOTH EYES HS 07/14/25
oxycodone 20 mg tablet 20 mg PO BIDPRN PRN severe pain 07/14/25
Review of Systems
-
History Source: Patient
Constitutional: Reports Night Sweats; Denies Fever or Chills
EENT: Denies Sore Throat
Respiratory: Reports Trouble Breathing; Denies Cough or Hemoptysis
Cardiac: Reports No Symptoms
Abdomen/GI: Denies Abdominal Pain, Nausea, Vomiting, Diarrhea or Constipated
Physical Exam
Vital Signs
Vital Signs
Temp Pulse Resp BP Pulse Ox
98.1 F 65 13 144/60 96
07/14/25 09:03 07/14/25 13:30 07/14/25 09:11 07/14/25 13:00 07/14/25 13:30
Physical Exam
General: No Apparent Distress and Comfortable
HEENT: NormoCephalic, Anicteric, Moist mucous membranes and Oxygen (2.5L NC); No Pharyngeal Erythema (no pharyngeal exudates)
Respiratory: Crackles (faint, bilateral lung garcia); No Wheezes, Rales or Rhonchi
Cardiac: S1/S2; No Murmur, Rub, Gallop, Peripheral Edema or Calf Tenderness
GI: Soft, Non Tender, Non Distended and Normal Bowel Sounds
Musculoskeletal: No Clubbing, No Cyanosis and No Edema
Skin: Warm and Dry
Neuro: Awake, Alert and Oriented
Psych: Calm
Laboratory Results
-
07/14/25 09:20
07/14/25 09:20
Laboratory Results
Total Bilirubin 0.7 mg/dl (0.2-1.3) 07/14/25 09:20
AST 26 U/L (14-36) 07/14/25 09:20
ALT 15 U/L (0-35) 07/14/25 09:20
Alkaline Phosphatase 100 U/L (38-126) 07/14/25 09:20
Troponin I 0.017 ng/ml 07/14/25 09:20
Impression/Plan
-
IMPRESSION:
89 year old female with history of Lung Ca (May 2025) on chemotherapy, COPD, former smoker, HTN, Hypercholesterolemia, NIDDM, hypothyroidism, CKD3, One functioning kidney, pancreatitis, remote history of TIA, lumbar radiculopathy, chronic bilateral
LE edema, anxiety/depression, who presents with SOB
PLAN:
Shortness of breath:
Secondary to acute CHF vs pneumonia vs lung cancer vs PE vs CT. Could be multifactorial
Acute CHF: No known history of heart failure. ProBNP 3300. Echo in 2022 with EF 59%, elevated pulm pressure, normal systolic function and indeterminate diastolic function.
- Got Lasix 40mg IV in ED, continue 40mg IV daily
- Follow IandOs, fluid restriction
- Daily weights
- Check echo
- Trend trops
- Questionable pneumonia: Started Ceftriaxone and zithromax in ED. Given immunosuppression, will switch to Vanc and zosyn
- Check CT PE study
CKDIIIb:
One functioning kidney:
- Creatinine appears to be at baseline.
- Follow BMP
- Renally dose meds as appropriate
COPD:
- Continue Trelegy ellipta
- PRN Duonebs
Lung cancer:
- On chemo Q3wks. Next scheduled infusion 07/20
NIDDM:
- Hold Glipizide
- SSI
Hx of TIA:
- Remote history. Continue Asp 81, atorvastatin
Hypercholesterolemia:
- Continue Atorvastatin
hypothyroidism:
- Continue levothyroxine
Essential hypertension:
- Continue Carvedilol and Losartan
Lumbar radiculopathy:
Chronic pain:
- Sees Dr. Dunaway for pain management
- Continue pain regimen with oxycodone
Hx of pancreatitis
Chronic LE edema
Anxiety/deression
DVT ppx: Lovenox
Code status; DNR
--- NOTE | 2025-07-14 14:52 | W.PN.UPDATE ---
Update Note
Progress Note Update
89-year-old female, Being treated for lung CA. Gets infusions every 3 weeks, now with increased shortness of breath that started this morning. Associated symptoms include hemoptysis. Ongoing midsternal chest pressure despite lasix. ECHO in 01/2025
with no WMA, EF WNL. Mild hypoxia noted; Imaging noted to have possible pneumonia v known lung mass along with New parenchymal opacity in the right mid to lower lung, most likely representing pneumonia. Smal b/l pleural effusions. Labs consistent
with proBNP of 3300, was in the low 1999's last admission.
Plan�trend troponins. Repeat echocardiogram now that on chemotherapy. Vancomycin, Zosyn, MRSA swab. Incentive spirometer, Acapella. Sputum cultures. Continue 40 IV Lasix daily for now. PE study.
[2025-07-14 17:42] LABS: Troponin I 0.022 ng/ml
[2025-07-14 18:04] LABS: Glucose - Point of Care 118 mg/dl (70-99)
[2025-07-14] MEDS: NOVOLOG FLEXPEN-LOW RESISTANCE SC (18:07)
[2025-07-14] MEDS: SYNTHROID 150 MCG PO (18:47)
[2025-07-14] MEDS: COZAAR 50 MG PO (18:47)
[2025-07-14] MEDS: ROXICODONE 20 MG PO ×2 (18:47→21:25)
--- NOTE | 2025-07-14 19:33 | PHA.VAN.IN ---
Assessment
- Assessment
Renal Function: Appears similar to baseline
AUC Dosing Plan
- Dosing Variables
Dosing Weight (kg): 86.1
Dosing CrCl (ml/min): 37
Vd coefficient (L/kg): 0.7
- Empiric Dosing
Initial / Loading Dose: 2000 MG~ 2030
Maintenance Regimen: 1000 MG Q24H
Estimated AUC (mcg*h/mL): 481
Estimated Peak (mcg*h/mL): 29.1
Estimated Trough (mcg/ml): 13.0
Estimated Half Life (H): 19.7
- Monitoring
No levels ordered at this time: Consider levels in following days
MRSA Screen: Ordered per protocol
Pharmacokinetics Vancomycin I
- -
Patient Age: 89
Patient Sex: Female
Vancomycin Day #: 1
Indication: Pulmonary/Respiratory
Requesting Provider: Dr. Zaheer Musa
Pertinent Antimicrobial Allergies:
nkda
Height / Weight:
Height 5 ft 6 in
Actual Weight 86.1 kg
- Vital Signs / Lab Results
Temp Pulse Resp BP Pulse Ox
98.1 F 68 16 171/60 99
07/14/25 18:22 07/14/25 18:47 07/14/25 18:22 07/14/25 18:47 07/14/25 18:22
Lab Results - Hematology
07/14/25
09:20
WBC 9.8
Lab Results - Chemistry
07/14/25
09:20
BUN 22 H
Creatinine 1.2 H
Estimated Creat Clear 37
Albumin 3.1 L
[2025-07-14] MEDS: SYMBICORT 80/4.5 MCG INHALER 2 PUFF INH (19:48)
[2025-07-14] MEDS: RESTASIS 0.05% OPHTHALMIC EMULSION 1 DROPS BOTH EYES (20:22)
[2025-07-14] MEDS: HEPARIN 5000 UNITS SC (20:22)
[2025-07-14] MEDS: COREG 12.5 MG PO (20:22)
[2025-07-14] MEDS: ZOSYN 50 IV (20:22)
[2025-07-14] MEDS: LIPITOR 40 MG PO (21:25)
[2025-07-14] MEDS: VANCOCIN 540 MG IV (21:25)
[2025-07-14] MEDS: ASPIR LOW (ENTERIC COATED) 81 MG PO (21:25)
[2025-07-14] MEDS: ERYTHROMYCIN 0.5% OPHTHALMIC OINTMENT 1 APPLIC BOTH EYES (21:29)
[2025-07-14 21:36] LABS: Glucose - Point of Care 127 mg/dl (70-99)
[2025-07-14] MEDS: TYLENOL 1000 MG PO (23:58)
[2025-07-15 01:13] LABS: Troponin I 0.025 ng/ml
[2025-07-15] MEDS: ZOSYN 50 IV ×4 (02:55→21:27)
[2025-07-15 03:53] VITALS: BP 130/57
[2025-07-15 06:00] VITALS: BMI 28.6
[2025-07-15] MEDS: SYNTHROID 150 MCG PO (06:39)
[2025-07-15 07:00] VITALS: BP 152/61
[2025-07-15 07:02] LABS: Glucose - Point of Care 127 mg/dl (70-99)
[2025-07-15 07:13] LABS: Troponin I 0.027 ng/ml
[2025-07-15] MEDS: NOVOLOG FLEXPEN-LOW RESISTANCE SC ×2 (07:39→16:39)
[2025-07-15] MEDS: SYMBICORT 80/4.5 MCG INHALER 2 PUFF INH ×2 (08:07→19:42)
[2025-07-15] MEDS: SPIRIVA RESPIMAT 2.5 MCG 2 PUFF INH (08:07)
--- NOTE | 2025-07-15 08:10 | PHA.VAN.FU ---
Vancomycin Assessment / Plan
- Assessment
Renal Function: No New Labs Today
In the past 24 hrs, patient has been: Afebrile
Concomitant Antimicrobials: piperacillin/tazobactam
- Dosing Plan
Continue: Vanc 1000mg Q24H
- Monitoring Plan
No level(s) ordered at this time: consider levels in next few days
- Follow Up
Pharmacy will continue to follow.
Vancomycin Follow UP
- -
Patient Age: 89
Patient Sex: Female
Vancomycin Day #: 2
Indication: Pulmonary/Respiratory
Requesting Provider: Dr. Zaheer Musa
Pertinent Antimicrobial Allergies:
NKDA
Height / Weight:
Height 5 ft 6 in
Actual Weight 80.456 kg
Pertinent Past Medical History: CKD III, DM, lung cancer
- Vital Signs / Lab Results
Temp Pulse Resp BP Pulse Ox
98.0 F 61 18 130/57 99
07/15/25 03:53 07/15/25 03:53 07/15/25 03:53 07/15/25 03:53 07/15/25 03:53
Lab Results - Hematology
07/14/25
09:20
WBC 9.8
Lab Results - Chemistry
07/14/25
09:20
BUN 22 H
Creatinine 1.2 H
Estimated Creat Clear 37
Albumin 3.1 L
[2025-07-15] MEDS: ROXICODONE 20 MG PO ×5 (08:48→23:15)
[2025-07-15] MEDS: RESTASIS 0.05% OPHTHALMIC EMULSION 1 DROPS BOTH EYES ×2 (08:48→21:22)
[2025-07-15] MEDS: COZAAR 50 MG PO (08:49)
[2025-07-15] MEDS: HEPARIN 5000 UNITS SC ×2 (08:49→21:22)
[2025-07-15] MEDS: LASIX 40 MG IV (08:49)
[2025-07-15] MEDS: DESENEX/MITRAZOL/ZEASORB 1 APPLIC TOPICAL ×2 (08:49→21:21)
[2025-07-15] MEDS: COREG 12.5 MG PO ×2 (08:49→21:22)
[2025-07-15 10:00] VITALS: BMI 28.6
[2025-07-15 10:00] LABS: ALT (SGPT) 13 U/L (0-35); AST (SGOT) 21 U/L (14-36); Albumin 2.8 g/dl (3.5-5.0); Alkaline Phosphatase 76 U/L (38-126); Blood Urea Nitrogen 21 mg/dl (7-17); Calcium 8.1 mg/dl (8.4-10.2); Carbon Dioxide 32 mmol/L (22-30); Chloride 108 mmol/L (98-107); Estimated Creatinine Clearance 39 ml/min; Glucose 109 mg/dl (70-99); Potassium 4.1 mmol/L (3.5-5.1); Sodium 141 mmol/L (135-145); Total Protein 5.4 g/dl (6.3-8.2); eGFR 48.63
[2025-07-15 10:12] LABS: Glycohemoglobin (HgbA1c) 5.7 % (4.0-5.6)
[2025-07-15 11:00] VITALS: BP 126/45
[2025-07-15] MEDS: VANCOCIN 200 IV (11:19)
[2025-07-15 11:42] LABS: Glucose - Point of Care 200 mg/dl (70-99)
[2025-07-15 11:54] LABS: Hematocrit 35.8 % (37.0-47.0); Hemoglobin 11.1 g/dL (12.0-16.0); Mean Corp Hgb Conc. 31.0 g/dL (33.0-37.0); Mean Corpuscular Volume 96.8 fL (81.0-99.0); Platelet Count 148 10^3/uL (130-400); Red Cell Dist. Width 14.2 % (11.5-14.5)
[2025-07-15] MEDS: NOVOLOG FLEXPEN-LOW RESISTANCE 2 UNITS SC (12:19)
--- NOTE | 2025-07-15 13:21 | W.PN.HOSP.TC ---
Today's Communication/Plan
-
cont zosyn
dc vanc
echo
transition to po lasix
IC/Acapella
Sputum cultures
Assessment / Plan
Assessment / Plan
Physical Exam
General: No Apparent Distress and Comfortable
HEENT: NormoCephalic, Anicteric, Moist mucous membranes and Oxygen (2L NC); No Pharyngeal Erythema (no pharyngeal exudates)
Respiratory: Crackles (faint, bilateral lung garcia); No Wheezes, Rales or Rhonchi
Cardiac: S1/S2; No Murmur, Rub, Gallop, Peripheral Edema or Calf Tenderness
GI: Soft, Non Tender, Non Distended and Normal Bowel Sounds
Musculoskeletal: No Clubbing, No Cyanosis and No Edema
Skin: Warm and Dry
Neuro: Awake, Alert and Oriented
Psych: Calm
Shortness of breath:
Secondary to pneumonia +/- acute HFpEF
Hypoxia
-right upper lobe pneumonia.
- ProBNP 3300. Echo in 2022 with EF 59%, elevated pulm pressure, normal systolic function and indeterminate diastolic function.
- Got Lasix 40mg IV in ED, continue 40mg IV daily - can transition back to po lasix
- Follow I and Os, fluid restriction
- Daily weights
- Check echo
- Trend trops - negative
- Check CT PE study - negative for PE; Pneumonia present
-MRSA negative - dc Vanc
-Continue zosyn
-wean o2 - o2 goal >92%
-incentive yesenia, acapella
-sputum cultures
CKDIIIb:
One functioning kidney:
- Creatinine appears to be at baseline.
- Follow BMP
- Renally dose meds as appropriate
COPD:
- Continue Trelegy ellipta
- PRN Duonebs
Lung cancer:
- On chemo Q3wks. Next scheduled infusion 07/20
NIDDM:
- Hold Glipizide
- SSI
Hx of TIA:
- Remote history. Continue Asp 81, atorvastatin
Hypercholesterolemia:
- Continue Atorvastatin
hypothyroidism:
- Continue levothyroxine
Essential hypertension:
- Continue Carvedilol and Losartan
Lumbar radiculopathy:
Chronic pain:
- Sees Dr. Dunaway for pain management
- Continue pain regimen with oxycodone
Hx of pancreatitis
Chronic LE edema
Anxiety/deression
DVT ppx: Lovenox
Code status; DNR
Anticipated Discharge: 24 - 48 hours
Subjective/Interval History
-
Date of Service: July 15, 2025
No acute events overnight, still with nonspecific chest symptoms
Objective Data
-
Labs:
Laboratory Results
07/15/25 07/15/25
06:08 08:31
WBC 6.7 Cancelled
Hgb 11.1 L Cancelled
Hct 35.8 L Cancelled
Plt Count 148 Cancelled
Sodium 141
Potassium 4.1
Chloride 108 H
Carbon Dioxide 32 H
BUN 21 H
Creatinine 1.1 H
Glucose 109 H
Calcium 8.1 L
Total Bilirubin 0.8
AST 21
ALT 13
Alkaline Phosphatase 76
Vital Signs:
Vital Signs
Temp Pulse Resp BP Pulse Ox
97.7 F 66 20 126/45 95
07/15/25 11:00 07/15/25 11:00 07/15/25 11:00 07/15/25 11:00 07/15/25 11:00
I&O
07/14/25 07/15/25 07/16/25
06:59 06:59 06:59
Intake Total 1260 / 1260
Balance 1260 / 1260
Review of Systems
-
History Source: Patient
All other systems: Reviewed and negative
Physical Exam
-
General: No Apparent Distress
HEENT: Normocephalic
Respiratory: Clear to Auscultation
GI: Soft, Nontender and Nondistended
Neuro: Awake, Alert, Oriented and AO x 3
Psych: Calm
Data Reviewed
-
Diagnostic Radiology: Report Reviewed by me
CT Scan: Report Reviewed by me
Labs: Labs Reviewed by me
[2025-07-15 15:00] VITALS: BP 160/70
--- NOTE | 2025-07-15 16:08 | CM ---
restaurant district manager reviewed patient's chart and met with patient and patient's spouse and daughter, patient lives with family in a 2 story home 4 steps to enter, with stair glide to 2nd floor, patient was independent with ADL's and uses a walker with
ambulation. Patient is currently on oxygen and does not require oxygen in home. per patient she has next infusion next Sunday and needs lab work completed prior to infusion. restaurant district manager reviewed possible visiting nurses at discharge and patient
states she is not sure she wants visiting nurses.
PCP: Chyna Nichols
[facility] in [place]
Plan; Home with spouse when stable, needs home oxygen evaluation at discharge.
[2025-07-15 16:37] LABS: Glucose - Point of Care 108 mg/dl (70-99)
[2025-07-15 19:55] VITALS: BP 150/61
[2025-07-15] MEDS: ASPIR LOW (ENTERIC COATED) 81 MG PO (21:23)
[2025-07-15] MEDS: LIPITOR 40 MG PO (21:27)
[2025-07-15] MEDS: ERYTHROMYCIN 0.5% OPHTHALMIC OINTMENT 1 APPLIC BOTH EYES (21:40)
[2025-07-15 22:05] LABS: Glucose - Point of Care 143 mg/dl (70-99)
[2025-07-15 23:25] VITALS: BP 147/55
[2025-07-16] VITALS (8 sets, daily range): BP systolic 123–175; BP diastolic 40–77; O2SAT 94; BMI 28.3
[2025-07-16] MEDS: TYLENOL 1000 MG PO (02:29)
[2025-07-16] MEDS: ZOSYN 50 IV ×4 (02:31→20:23)
[2025-07-16] MEDS: SYNTHROID 150 MCG PO (05:40)
[2025-07-16 07:00] LABS: Glucose - Point of Care 130 mg/dl (70-99)
[2025-07-16] MEDS: COLACE 100 MG PO (07:54)
[2025-07-16] MEDS: NOVOLOG FLEXPEN-LOW RESISTANCE SC ×3 (07:54→16:42)
[2025-07-16] MEDS: RESTASIS 0.05% OPHTHALMIC EMULSION 1 DROPS BOTH EYES ×2 (07:55→20:20)
[2025-07-16] MEDS: COREG 12.5 MG PO ×2 (07:55→20:27)
[2025-07-16] MEDS: LASIX 40 MG PO (07:55)
[2025-07-16] MEDS: ROXICODONE 20 MG PO ×4 (07:55→21:34)
[2025-07-16] MEDS: HEPARIN 5000 UNITS SC ×2 (07:55→20:20)
[2025-07-16] MEDS: COZAAR 50 MG PO (07:55)
[2025-07-16] MEDS: DESENEX/MITRAZOL/ZEASORB 1 APPLIC TOPICAL ×2 (07:55→20:26)
[2025-07-16] MEDS: SPIRIVA RESPIMAT 2.5 MCG 2 PUFF INH (08:13)
[2025-07-16] MEDS: SYMBICORT 80/4.5 MCG INHALER 2 PUFF INH ×2 (08:13→19:54)
[2025-07-16 08:17] LABS: Hematocrit 34.2 % (37.0-47.0); Hemoglobin 10.7 g/dL (12.0-16.0); Mean Corp Hgb Conc. 31.3 g/dL (33.0-37.0); Mean Corpuscular Volume 94.5 fL (81.0-99.0); Platelet Count 152 10^3/uL (130-400); Red Cell Dist. Width 14.3 % (11.5-14.5)
[2025-07-16 09:05] LABS: ALT (SGPT) 12 U/L (0-35); AST (SGOT) 18 U/L (14-36); Albumin 2.9 g/dl (3.5-5.0); Alkaline Phosphatase 79 U/L (38-126); Blood Urea Nitrogen 22 mg/dl (7-17); Calcium 7.9 mg/dl (8.4-10.2); Carbon Dioxide 31 mmol/L (22-30); Chloride 105 mmol/L (98-107); Estimated Creatinine Clearance 30 ml/min; Glucose 118 mg/dl (70-99); Potassium 3.8 mmol/L (3.5-5.1); Sodium 139 mmol/L (135-145); Total Protein 5.5 g/dl (6.3-8.2); eGFR 36.41
[2025-07-16 11:52] LABS: Glucose - Point of Care 135 mg/dl (70-99)
--- NOTE | 2025-07-16 12:09 | W.PN.HOSP.TC ---
Today's Communication/Plan
-
Repeat blood cultures
Follow-up blood cultures already taken
Continue Zosyn
Incentive spirometer, Acapella
Assessment / Plan
Assessment / Plan
Physical Exam
General: No Apparent Distress and Comfortable
HEENT: NormoCephalic, Anicteric, Moist mucous membranes and Oxygen (2L NC); No Pharyngeal Erythema (no pharyngeal exudates)
Respiratory: Crackles (faint, bilateral lung garcia); No Wheezes, Rales or Rhonchi
Cardiac: S1/S2; No Murmur, Rub, Gallop, Peripheral Edema or Calf Tenderness
GI: Soft, Non Tender, Non Distended and Normal Bowel Sounds
Musculoskeletal: No Clubbing, No Cyanosis and No Edema
Skin: Warm and Dry
Neuro: Awake, Alert and Oriented
Psych: Calm
Shortness of breath:
Secondary to pneumonia +/- acute HFpEF
Hypoxia
-right upper lobe pneumonia.
- ProBNP 3300. Echo in 2022 with EF 59%, elevated pulm pressure, normal systolic function and indeterminate diastolic function.
- Got Lasix 40mg IV in ED, continue 40mg IV daily - can transition back to po lasix
- Follow I and Os, fluid restriction
- Daily weights
-�EF 65 to 70%, no wall motion abnormality
- Trend trops - negative
- Check CT PE study - negative for PE; Pneumonia present
-MRSA negative - dc Vanc
-Continue zosyn
-wean o2 - o2 goal >92%
-incentive yesenia, acapella
-sputum cultures�usual respiratory claudia
#Positive blood cultures
� 1 bottle gram-positive cocci in clusters
� Repeat blood cultures
�patient is improving off of vancomycin, remains afebrile, hemodynamically stable�will hold off adding vancomycin
CKDIIIb:
One functioning kidney:
- Creatinine appears to be at baseline.
- Follow BMP
- Renally dose meds as appropriate
COPD:
- Continue Trelegy ellipta
- PRN Duonebs
Lung cancer:
- On chemo Q3wks. Next scheduled infusion 07/20
NIDDM:
- Hold Glipizide
- SSI
Hx of TIA:
- Remote history. Continue Asp 81, atorvastatin
Hypercholesterolemia:
- Continue Atorvastatin
hypothyroidism:
- Continue levothyroxine
Essential hypertension:
- Continue Carvedilol and Losartan
Lumbar radiculopathy:
Chronic pain:
- Sees Dr. Dunaway for pain management
- Continue pain regimen with oxycodone
Hx of pancreatitis
Chronic LE edema
Anxiety/deression
DVT ppx: Lovenox
Code status; DNR
Anticipated Discharge: 24 - 48 hours
Subjective/Interval History
-
Date of Service: July 16, 2025
Respiratory symptoms improved
Objective Data
-
Labs:
Laboratory Results
07/16/25
06:32
WBC 6.9
Hgb 10.7 L
Hct 34.2 L
Plt Count 152
Sodium 139
Potassium 3.8
Chloride 105
Carbon Dioxide 31 H
BUN 22 H
Creatinine 1.4 H
Glucose 118 H
Calcium 7.9 L
Total Bilirubin 0.7
AST 18
ALT 12
Alkaline Phosphatase 79
Vital Signs:
Vital Signs
Temp Pulse Resp BP Pulse Ox
97.6 F 62 16 130/57 94
07/16/25 11:00 07/16/25 11:00 07/16/25 11:00 07/16/25 11:00 07/16/25 11:00
I&O
07/15/25 07/16/25 07/17/25
06:59 06:59 06:59
Intake Total 1260 / 1260 360 / 360
Output Total 1924 / 1924
Balance 1260 / 1260 -1565 / -1565
Review of Systems
-
History Source: Patient
All other systems: Reviewed and negative
Data Reviewed
-
Diagnostic Radiology: Report Reviewed by me
CT Scan: Report Reviewed by me
Labs: Labs Reviewed by me
--- NOTE | 2025-07-16 14:23 | CM ---
PT OT indicated SNF.
Spoke with pt in room Reviewed PT OT with them.
Pt refused SNF .
Offered VN she declined VN .
Pt weaned off oxygen Pox 90%.
PLAN Home no needs unless she accepts services.
[2025-07-16 16:42] LABS: Glucose - Point of Care 100 mg/dl (70-99)
[2025-07-16] MEDS: FLUSH (NSS) 1 FLUSH IV (20:22)
[2025-07-16 21:06] LABS: Glucose - Point of Care 140 mg/dl (70-99)
[2025-07-16] MEDS: LIPITOR 40 MG PO (21:33)
[2025-07-16] MEDS: ERYTHROMYCIN 0.5% OPHTHALMIC OINTMENT 1 APPLIC BOTH EYES (21:34)
[2025-07-16] MEDS: ASPIR LOW (ENTERIC COATED) 81 MG PO (21:34)
[2025-07-17] MEDS: ZOSYN 50 IV ×2 (01:32→07:48)
[2025-07-17] MEDS: TYLENOL 1000 MG PO (02:41)
[2025-07-17 03:46] VITALS: BP 147/58
[2025-07-17] MEDS: SYNTHROID 150 MCG PO (05:56)
[2025-07-17] MEDS: SPIRIVA RESPIMAT 2.5 MCG 2 PUFF INH (07:27)
[2025-07-17] MEDS: SYMBICORT 80/4.5 MCG INHALER 2 PUFF INH (07:27)
[2025-07-17 07:47] LABS: Glucose - Point of Care 155 mg/dl (70-99)
[2025-07-17] MEDS: RESTASIS 0.05% OPHTHALMIC EMULSION 1 DROPS BOTH EYES (07:48)
[2025-07-17] MEDS: NOVOLOG FLEXPEN-LOW RESISTANCE 1 UNITS SC ×2 (07:48→11:54)
[2025-07-17] MEDS: COREG 12.5 MG PO (07:49)
[2025-07-17] MEDS: ROXICODONE 20 MG PO (07:49)
[2025-07-17] MEDS: HEPARIN 5000 UNITS SC (07:49)
[2025-07-17] MEDS: COZAAR 50 MG PO (07:49)
[2025-07-17] MEDS: DESENEX/MITRAZOL/ZEASORB 1 APPLIC TOPICAL (07:49)
[2025-07-17 08:18] VITALS: BP 177/73
[2025-07-17 08:48] LABS: Hematocrit 35.9 % (37.0-47.0); Hemoglobin 11.4 g/dL (12.0-16.0); Mean Corp Hgb Conc. 31.8 g/dL (33.0-37.0); Mean Corpuscular Volume 94.7 fL (81.0-99.0); Platelet Count 161 10^3/uL (130-400); Red Cell Dist. Width 14.2 % (11.5-14.5)
[2025-07-17 09:17] LABS: ALT (SGPT) 12 U/L (0-35); AST (SGOT) 20 U/L (14-36); Albumin 3.1 g/dl (3.5-5.0); Alkaline Phosphatase 87 U/L (38-126); Blood Urea Nitrogen 22 mg/dl (7-17); Calcium 8.4 mg/dl (8.4-10.2); Carbon Dioxide 31 mmol/L (22-30); Chloride 106 mmol/L (98-107); Estimated Creatinine Clearance 35 ml/min; Glucose 135 mg/dl (70-99); Potassium 3.8 mmol/L (3.5-5.1); Sodium 141 mmol/L (135-145); Total Protein 6.0 g/dl (6.3-8.2); eGFR 43.81
--- NOTE | 2025-07-17 10:17 | CM ---
apartment maintenance manager reviewed patient's chart and met with patient and plan to return to home with spouse when stable, patient has declined skilled placement, patient is currently receiving infusion treatment and may not be accepted at a skilled facility.
Patient has also denied visiting nurses at discharge.
Plan; Home with spouse when stable.
--- NOTE | 2025-07-17 11:31 | W.PN.HOSP.TC ---
Addendum entered and electronically signed by Richard Momin MD 07/17/25 16:34:
[id number]
Original Note:
Today's Communication/Plan
-
transition to Augmentin for 8 more days to complete 10-day course; azithromycin for 3 days
F/u Chest imaging in 4-6 weeks
Follow-up CBC and CMP within 1 week with PCP
Follow-up PCP, oncology, cardiology outpatient
Assessment / Plan
Assessment / Plan
Physical Exam
General: No Apparent Distress and Comfortable
HEENT: NormoCephalic, Anicteric, Moist mucous membranes and Oxygen (2L NC); No Pharyngeal Erythema (no pharyngeal exudates)
Respiratory: Crackles (faint, bilateral lung garcia); No Wheezes, Rales or Rhonchi
Cardiac: S1/S2; No Murmur, Rub, Gallop, Peripheral Edema or Calf Tenderness
GI: Soft, Non Tender, Non Distended and Normal Bowel Sounds
Musculoskeletal: No Clubbing, No Cyanosis and No Edema
Skin: Warm and Dry
Neuro: Awake, Alert and Oriented
Psych: Calm
Shortness of breath:
Secondary to pneumonia +/- acute HFpEF
Hypoxia
-right upper lobe pneumonia.
- ProBNP 3300. Echo in 2022 with EF 59%, elevated pulm pressure, normal systolic function and indeterminate diastolic function.
- Got Lasix 40mg IV in ED, continue 40mg IV daily - can transition back to po lasix
- Follow I and Os, fluid restriction
- Daily weights
-�EF 65 to 70%, no wall motion abnormality
- Trend trops - negative
- Check CT PE study - negative for PE; Pneumonia present
-MRSA negative - dc Vanc
-Continue zosyn�transition to Augmentin for 8 more days to complete 10-day course; added azithromycin for 3 days
- upon ambulation is saturating over 90% on room air, does not qualify for oxygen
-incentive yesenia, acapella
-sputum cultures�usual respiratory claudia
-f/u imaging of the chest in 4-6 weeks
#Positive blood cultures
� 1 bottle gram-positive cocci in clusters
� Appears to be contaminant
� Remains afebrile, hemodynamic stable, and symptomatically improved
CKDIIIb:
One functioning kidney:
- Creatinine appears to be at baseline.
- Follow BMP
- Renally dose meds as appropriate
COPD:
- Continue Trelegy ellipta
- PRN Duonebs
Lung cancer:
- On chemo Q3wks. Next scheduled infusion 07/20
NIDDM:
- Hold Glipizide
- SSI
Hx of TIA:
- Remote history. Continue Asp 81, atorvastatin
Hypercholesterolemia:
- Continue Atorvastatin
hypothyroidism:
- Continue levothyroxine
Essential hypertension:
- Continue Carvedilol and Losartan
Lumbar radiculopathy:
Chronic pain:
- Sees Dr. Dunaway for pain management
- Continue pain regimen with oxycodone
Hx of pancreatitis
Chronic LE edema
Anxiety/deression
DVT ppx: Lovenox
Code status; DNR
More than 30 minutes spent in discharge including
Final examination of the patient
Summarizing hospital stay
Instructions for continuing care to all relevant caregivers
Preparation of discharge records, prescriptions, and referral forms
Total time spent (in minutes): 36
Anticipated Discharge: Today
Subjective/Interval History
-
Date of Service: July 17, 2025
Feeling better, desires to go
Objective Data
-
Labs:
Laboratory Results
07/17/25
06:53
WBC 6.6
Hgb 11.4 L
Hct 35.9 L
Plt Count 161
Sodium 141
Potassium 3.8
Chloride 106
Carbon Dioxide 31 H
BUN 22 H
Creatinine 1.2 H
Glucose 135 H
Calcium 8.4
Total Bilirubin 0.8
AST 20
ALT 12
Alkaline Phosphatase 87
Vital Signs:
Vital Signs
Temp Pulse Resp BP Pulse Ox
97.8 F 53 18 177/73 98
07/17/25 08:18 07/17/25 08:18 07/17/25 08:18 07/17/25 08:18 07/17/25 08:18
I&O
07/16/25 07/17/25 07/18/25
06:59 06:59 06:59
Intake Total 360 / 360 1260 / 1260 240 / 240
Output Total 1925 / 1925 2300 / 2300
Balance -1565 / -1565 -1040 / -1040 240 / 240
Review of Systems
-
History Source: Patient
All other systems: Not reviewed unless documented
Data Reviewed
-
Diagnostic Radiology: Report Reviewed by me
CT Scan: Report Reviewed by me
Labs: Labs Reviewed by me
--- NOTE | 2025-07-17 11:35 | W.DS.TRANS ---
DC Summary - [employer]
-
Discharge Instructions:
Sleep Apnea Risk Low
Discharge Diagnosis/Procedures Shortness of breath:
Secondary to pneumonia +/- acute HFpEF
Hypoxia
Diet Low Cholesterol,Low Fat,Diabetic, Carb
Controlled
Blood Work cbc and cmp in 5 days with pcp
Others Tests Chest imaging in 4-6 weeks to assess for
resolution of penumonia
Instructions:
Stand-Alone Forms:
Changes to Home Medications: Yes
Discharge Medications:
DC Medications w/original date entered in [employer]
atorvastatin 40 mg tablet 40 mg PO HS High cholesterol 10/09/18
glipizide 5 mg tablet 2.5 mg PO DAILY@1700 Diabetes 06/27/22
levothyroxine 150 mcg tablet (Synthroid) 150 mcg PO MOTUWETHFRSA@0600 Thyroid 06/27/22
levothyroxine 150 mcg tablet (Synthroid) 300 mcg PO NEWTON@0600 Thyroid 06/27/22
oxycodone 20 mg tablet 20 mg PO QID Pain 06/27/22
docusate sodium 100 mg capsule (Colace) 100 mg PO DAILY Constipation 02/26/25
furosemide 40 mg tablet 40 mg PO DAILY Fluid Retention/Swelling 02/26/25
multivitamin 1 tab PO DAILY Supplement 02/26/25
Unknown Infusion 1 dose IV Q3W 05/09/25
acetaminophen 500 mg tablet (Tylenol Extra Strength) 1,000 mg PO BIDPRN PRN mild pain 05/09/25
aspirin 81 mg tablet,delayed release 81 mg PO HS Blood Clot Prevention/Tx 05/09/25
cyclosporine 0.05 % eye drops in a dropperette 1 drp BOTH EYES BID Eye Condition 05/09/25
fluticasone fur. 100 mcg-umeclid 62.5 mcg-vilant 25 mcg inhalat.powder (Trelegy Ellipta) 1 inh inhalation R DAILY Lung/Breathing Issues 05/09/25
losartan 50 mg tablet 50 mg PO DAILY #30 tabs 05/11/25
carvedilol 12.5 mg tablet 12.5 mg PO BID Blood Pressure 07/14/25
dextran 70-hypromellose eye drops in a dropperette (Artificial Tears (PF) drops in a dropperette) 1 drp BOTH EYES QIDPRN PRN dry eyes 07/14/25
erythromycin 5 mg/gram (0.5 %) eye ointment 1 applic BOTH EYES HS Eye Condition 07/14/25
oxycodone 20 mg tablet 20 mg PO BIDPRN PRN severe pain 07/14/25
amoxicillin 875 mg-potassium clavulanate 125 mg tablet 1 tab PO Q12H 8 days #16 tabs 07/17/25
azithromycin 500 mg tablet 500 mg PO DAILY 3 days #3 tabs 07/17/25
miconazole nitrate 2 % topical powder (Miconazorb AF) 1 applic topical BID #85 grams 07/17/25
Home Medication Changes
amoxicillin 875 mg-potassium clavulanate 125 mg tablet 1 tab PO Q12H 8 days #16 tabs 07/17/25
azithromycin 500 mg tablet 500 mg PO DAILY 3 days #3 tabs 07/17/25
miconazole nitrate 2 % topical powder (Miconazorb AF) 1 applic topical BID #85 grams 07/17/25
Pending Results: No
[2025-07-17 11:43] LABS: Glucose - Point of Care 156 mg/dl (70-99)
[2025-07-17 11:49] VITALS: BP 143/57
== END 2025-07-17 13:24 | disposition home or self-care (01) | DRG 193 ==
LOC: 4 EAST ACU 15:05
PROVIDERS: Student in an Organized Health Care Education/Training Program; ADMITTING PHYSICIAN Internal Medicine; EMERGENCY PHYSICIAN Emergency Medicine; FAMILY PHYSICIAN Family Medicine
DX: J18.9 Pneumonia, unspecified organism (principal); I50.31 Acute diastolic (congestive) heart failure; I13.0 Hypertensive heart and chronic kidney disease with heart failure and stage 1 through stage 4 chronic kidney disease, or unspecified chronic kidney disease; C34.90 Malignant neoplasm of unspecified part of unspecified bronchus or lung; R04.2 Hemoptysis; J44.0 Chronic obstructive pulmonary disease with (acute) lower respiratory infection; D84.9 Immunodeficiency, unspecified; E03.9 Hypothyroidism, unspecified; N18.32 Chronic kidney disease, stage 3b; R09.02 Hypoxemia; E11.22 Type 2 diabetes mellitus with diabetic chronic kidney disease; G89.29 Other chronic pain; F41.9 Anxiety disorder, unspecified; E78.00 Pure hypercholesterolemia, unspecified; M54.16 Radiculopathy, lumbar region; Z66 Do not resuscitate; Z79.890 Hormone replacement therapy; Z79.84 Long term (current) use of oral hypoglycemic drugs; Z79.82 Long term (current) use of aspirin; Z87.891 Personal history of nicotine dependence; Z90.49 Acquired absence of other specified parts of digestive tract; Z86.73 Personal history of transient ischemic attack (TIA), and cerebral infarction without residual deficits; Z92.21 Personal history of antineoplastic chemotherapy; Z87.19 Personal history of other diseases of the digestive system; Z11.52 Encounter for screening for COVID-19
CPT/HCPCS: 71046; 71275; 80053; 82962; 83036; 83880; 84484; 85025; 85027; 87040; 87070; 87154; 87205; 87641; 87811; 93005; 93306; 94640; 96365; 96375; 97163; 97166; 99285; Q9967

== ENCOUNTER → 2025-07-20 09:38 | Outpatient (REF) | payer MEDICARE, OTHER, SELFPAY ==
[2025-07-20 11:01] LABS: Hematocrit 37.8 % (37.0-47.0); Hemoglobin 12.0 g/dL (12.0-16.0); Mean Corp Hgb Conc. 31.7 g/dL (33.0-37.0); Mean Corpuscular Volume 95.5 fL (81.0-99.0); Nucleated Red Blood Cells % 0 %; Platelet Count 170 10^3/uL (130-400); Red Cell Dist. Width 14.4 % (11.5-14.5)
[2025-07-20 12:03] LABS: ALT (SGPT) 19 U/L (0-35); AST (SGOT) 32 U/L (14-36); Albumin 3.4 g/dl (3.5-5.0); Alkaline Phosphatase 101 U/L (38-126); Blood Urea Nitrogen 20 mg/dl (7-17); Calcium 8.5 mg/dl (8.4-10.2); Carbon Dioxide 30 mmol/L (22-30); Chloride 106 mmol/L (98-107); Glucose 132 mg/dl (70-99); Potassium 3.8 mmol/L (3.5-5.1); Sodium 140 mmol/L (135-145); Total Protein 6.4 g/dl (6.3-8.2); eGFR 36.41
[2025-07-20 12:28] LABS: TSH 0.32 uIU/ml (0.47-4.68)
== END ==
LOC: REG 09:38
PROVIDERS: ATTENDING PHYSICIAN Internal Medicine Hematology & Oncology; FAMILY PHYSICIAN Family Medicine
DX: R91.1 Solitary pulmonary nodule (principal); C34.11 Malignant neoplasm of upper lobe, right bronchus or lung; E03.9 Hypothyroidism, unspecified
CPT/HCPCS: 36415; 80053; 84443; 85025

== ENCOUNTER → 2025-08-07 08:31 | Outpatient (REF) | payer MEDICARE, OTHER, SELFPAY ==
[2025-08-07 08:41] LABS: Glucose 124 mg/dl (70-99)
== END ==
LOC: PET 08:31
PROVIDERS: ATTENDING PHYSICIAN Internal Medicine Hematology & Oncology
DX: C34.11 Malignant neoplasm of upper lobe, right bronchus or lung (principal); J44.9 Chronic obstructive pulmonary disease, unspecified
CPT/HCPCS: 36415; 82947

== ENCOUNTER → 2025-08-10 09:38 | Outpatient (REF) | payer MEDICARE, OTHER, SELFPAY ==
[2025-08-10 11:50] LABS: Hematocrit 40.5 % (37.0-47.0); Hemoglobin 12.3 g/dL (12.0-16.0); Mean Corp Hgb Conc. 30.4 g/dL (33.0-37.0); Mean Corpuscular Volume 94.4 fL (81.0-99.0); Nucleated Red Blood Cells % 0 %; Platelet Count 136 10^3/uL (130-400); Red Cell Dist. Width 14.9 % (11.5-14.5)
[2025-08-10 13:13] LABS: ALT (SGPT) 28 U/L (0-35); AST (SGOT) 36 U/L (14-36); Albumin 3.5 g/dl (3.5-5.0); Alkaline Phosphatase 105 U/L (38-126); Blood Urea Nitrogen 25 mg/dl (7-17); Calcium 8.2 mg/dl (8.4-10.2); Carbon Dioxide 31 mmol/L (22-30); Chloride 108 mmol/L (98-107); Glucose 128 mg/dl (70-99); Sodium 142 mmol/L (135-145); Total Protein 6.4 g/dl (6.3-8.2); eGFR 39.80
[2025-08-10 13:21] LABS: Potassium 4.3 mmol/L (3.5-5.1)
== END ==
LOC: REG 09:38
PROVIDERS: ATTENDING PHYSICIAN Internal Medicine Hematology & Oncology; FAMILY PHYSICIAN Family Medicine
DX: R91.1 Solitary pulmonary nodule (principal); C34.11 Malignant neoplasm of upper lobe, right bronchus or lung; E03.9 Hypothyroidism, unspecified
CPT/HCPCS: 36415; 80053; 84439; 84443; 85025

== ENCOUNTER → 2025-08-28 09:07 | Outpatient (REF) | payer MEDICARE, OTHER, SELFPAY ==
[2025-08-28 10:59] LABS: Hematocrit 41.8 % (37.0-47.0); Hemoglobin 12.4 g/dL (12.0-16.0); Mean Corp Hgb Conc. 29.7 g/dL (33.0-37.0); Mean Corpuscular Volume 93.3 fL (81.0-99.0); Nucleated Red Blood Cells % 0 %; Platelet Count 120 10^3/uL (130-400); Red Cell Dist. Width 15.2 % (11.5-14.5)
[2025-08-28 11:23] LABS: ALT (SGPT) 22 U/L (0-35); AST (SGOT) 33 U/L (14-36); Albumin 3.5 g/dl (3.5-5.0); Alkaline Phosphatase 95 U/L (38-126); Blood Urea Nitrogen 23 mg/dl (7-17); Calcium 8.3 mg/dl (8.4-10.2); Carbon Dioxide 32 mmol/L (22-30); Chloride 105 mmol/L (98-107); Glucose 115 mg/dl (70-99); Potassium 4.0 mmol/L (3.5-5.1); Sodium 138 mmol/L (135-145); Total Protein 6.5 g/dl (6.3-8.2); eGFR 39.80
== END ==
LOC: REG 09:07
PROVIDERS: ATTENDING PHYSICIAN Internal Medicine Hematology & Oncology; FAMILY PHYSICIAN Family Medicine
DX: R91.1 Solitary pulmonary nodule (principal); C34.11 Malignant neoplasm of upper lobe, right bronchus or lung; E03.9 Hypothyroidism, unspecified
CPT/HCPCS: 36415; 80053; 84443; 85025

== ENCOUNTER 2025-09-04 07:21 | Day surgery (SDC) | payer MEDICARE, OTHER, SELFPAY ==
--- NOTE | 2025-09-04 08:53 | ITS.CL.CARDI ---
[employer] - Cardioversion
Cardioversion
Procedure Report:
Date of Procedure: 09/04/25
Procedure: Cardioversion
Indication: Symptomatic atrial fibrillation
Performing Physician: Julian Esteves MD
Technique: The patient was brought to the holding area. Signed informed consent was obtained. A time out was called and performed. The patient was anesthetized by the anesthesia service. Anticoagulation status was reviewed and appropriate. R2 pads
were placed anteriorly and posteriorly. After VALDEZ revealed no JUAN PABLO thrombus, A 200 J synchronized biphasic shock restored normal sinus rhythm without significant bradycardia. There were no complications.
Conclusion: Uncomplicated cardioversion from atrial fibrillation to sinus rhythm.
Recommendation: Routine post cardioversion care. Continue custodial anticoagulation.
== END 2025-09-04 09:37 | disposition home or self-care (01) ==
LOC: CATH 07:21
PROVIDERS: ATTENDING PHYSICIAN Internal Medicine Cardiovascular Disease; FAMILY PHYSICIAN Family Medicine; OTHER PHYSICIAN Internal Medicine Interventional Cardiology
DX: I48.0 Paroxysmal atrial fibrillation (principal); Z79.01 Long term (current) use of anticoagulants; I08.3 Combined rheumatic disorders of mitral, aortic and tricuspid valves; I25.2 Old myocardial infarction; I49.1 Atrial premature depolarization; I70.0 Atherosclerosis of aorta; I08.8 Other rheumatic multiple valve diseases; J44.9 Chronic obstructive pulmonary disease, unspecified; I50.32 Chronic diastolic (congestive) heart failure; E11.9 Type 2 diabetes mellitus without complications; I13.0 Hypertensive heart and chronic kidney disease with heart failure and stage 1 through stage 4 chronic kidney disease, or unspecified chronic kidney disease; E11.22 Type 2 diabetes mellitus with diabetic chronic kidney disease; N18.9 Chronic kidney disease, unspecified; Z87.891 Personal history of nicotine dependence
CPT/HCPCS: 93312; 93320; 93325; 92960; 93005

== ENCOUNTER 2025-09-09 16:51 | Inpatient (IN) | payer MEDICARE, OTHER, SELFPAY ==
[2025-09-09] VITALS (8 sets, daily range): BP systolic 131–169; BP diastolic 61–80; BMI 31.5
[2025-09-09 11:35] LABS: Hematocrit 41.7 % (37.0-47.0); Hemoglobin 12.2 g/dL (12.0-16.0); Mean Corp Hgb Conc. 29.3 g/dL (33.0-37.0); Mean Corpuscular Volume 95.0 fL (81.0-99.0); Nucleated Red Blood Cells % 0 %; Platelet Count 104 10^3/uL (130-400); Red Cell Dist. Width 15.5 % (11.5-14.5)
[2025-09-09 11:54] LABS: ALT (SGPT) 47 U/L (0-35); AST (SGOT) 72 U/L (14-36); Albumin 3.6 g/dl (3.5-5.0); Alkaline Phosphatase 118 U/L (38-126); Blood Urea Nitrogen 25 mg/dl (7-17); Calcium 8.1 mg/dl (8.4-10.2); Carbon Dioxide 34 mmol/L (22-30); Chloride 104 mmol/L (98-107); Estimated Creatinine Clearance 34 ml/min; Glucose 132 mg/dl (70-99); Potassium 4.2 mmol/L (3.5-5.1); Sodium 141 mmol/L (135-145); Total Protein 6.4 g/dl (6.3-8.2); eGFR 39.80
--- NOTE | 2025-09-09 12:31 | ED.GENMED ---
History of Present Illness
<Yaquelin Rolle PA-C - Last Filed: 09/10/25 09:02>
General
Chief Complaint: Breathing Problem
Source: patient and family
Exam Limitations: none
Time Seen by Provider: 09/09/25 12:07
Nursing documentation reviewed up to this point in time: agreed with
History of Present Illness
History of Present Illness:
Patient is an 89-year-old female w/ hx Lung CA on Keytruda, COPD, CAD, HTN, DM who presents to the emergency department for evaluation of chest pressure and worsening shortness of breath. Patient states she has had somewhat chronic pressure in her
chest as well as shortness of breath since May 2025 however noticed some acute worsening last night. Her states that he helped her up to the bathroom a few times last night and each time she seemed to have worsening breathing difficulties.
Shortness of breath and chest discomfort is exacerbated by minimal exertion. No clear positional nature.
She denies any associated fever, productive cough, pain in lower extremities. She does have swelling in both of her lower legs which she believes has been unchanged recently
Patient states that she has a history of fluid on her lungs requiring drainage.
Of note�patient recently underwent a VALDEZ and cardioversion on 09/04/2025 and was started on Eliquis.
Past History
<Yaquelin Rolle PA-C - Last Filed: 09/10/25 09:02>
Past History
ED Past Medical History: COPD, HTN, Hypercholesterolemia, IDDM, Hypothyroidism, Other (Chronic kidney disease, Pancreatitis, Ileus, PSTV) and Other (Chronic lumbar radiculopathy, in pain management w/ Dr Dunaway)
ED Past Surgical History: Cholecystectomy, Orthopedic (Lumbar Laminectomy L3-5,) and Other (Only one kidney)
Social History
Tobacco: Former smoker
Alcohol: None
Personal:
Living: with family
Family History
Family History: Negative Diabetes, Hypertension or CAD
Review of Systems
<Yaquelin Rolle PA-C - Last Filed: 09/10/25 09:02>
Review of Systems
Allergies reviewed?: Yes
All Other Systems: ROS reviewed and negative except as documented in HPI and ROS
Phy Exam
<Yaquelin Rolle PA-C - Last Filed: 09/10/25 09:02>
Physical Exam
Physical Exam:
Vitals: Hypoxic, mildly hypertensive. Afebrile
General: Patient is chronically ill-appearing.
Skin: Warm and dry, no rashes or lesions
Head: Normocephalic, atraumatic
Eyes: Sclera nonicteric.
Throat: Protecting airway
Neck: Normal ROM, no cervical spine tenderness, no meningismus
Cardiac: Regular rate and rhythm, no murmurs.
Pulm: Hypoxic on room air. Decreased breath sounds at bases bilaterally with scattered expiratory wheeze.
Abdomen: Nondistended. Soft and nontender.
Extremities: Edema of left lower extremity from left mid calf extending to thigh. Palpable DP pulses bilaterally
Neuro: AAOx3. Grossly intact.
Psychiatric: Normal affect.
Scores
<Yaquelin Rolle PA-C - Last Filed: 09/10/25 09:02>
Heart Failure Risk
Heart Failure Risk Score: Not Applicable
Course
<Yaquelin Rolle PA-C - Last Filed: 09/10/25 09:02>
Orders/Labs/Results
Orders:
Orders
09/09/25 11:27
Complete Blood Count/With Diff Urgent
Comprehensive Metabolic Panel Urgent
NT-proBNP Urgent
Comment: ADD ON
Troponin I Urgent
09/09/25 11:33
EKG [Electrocardiogram (*1)] Urgent
Reason for Study: Tachycardia
09/09/25 11:34
EKG- Treatment ONCE
09/09/25 12:26
Ipratropium/Albuterol Sulfate [Duoneb] 3 ml INH R NOW STA
CR Chest - 2 Views Urgent
Comment: previous pleural effusions
Reason For Exam: SOB, hx luing Ca
US Periph Venous LOWER Ext Derrick Urgent
Comment:
Reason For Exam: LE swelling
09/09/25 12:37
COVID-19 Antigen Urgent
Source: Nasal Swab
Influenza A+B Rapid Molecular Urgent
TAHIR Source: Nasal Swab
Specimen Description:
09/09/25 Dinner
1800 calorie (15 carb) Diabetic
At Your Request: Limited Participation
Diabetic Diet: Cholesterol Lowering
09/09/25 15:22
Azithromycin 500 mg/250 ml [Zithromax Infusion] 500 mg in 250 ml IV NOW
CefTRIAXone [Rocephin] 2,000 mg IV NOW STA
MethylPREDNISolone PF [Solu-Medrol Pf] 125 mg IV NOW STA
09/09/25 15:40
Sterile Water [Sterile Water For Injection] 20 ml .ROUTE .STK-MED
09/09/25 16:00
Add On- LAB Routine
Tests Added?: pBNP
09/09/25 16:21
Admit/Transfer Patient As Directed
Co-Sign Provider:
Level of Care: Inpatient admission
Assign to:: Telemetry
Physician / Group: Clarence Magallon
Diagnosis: acute on chronic HFpEF, COPD exacerbation, hypoxia
Reason for Telemetry: Acute Heart Failure
Date to Stop Telemetry: 09/12/25
Time to Stop Telemetry: 11:00
Reason for Hospitalization: acute on chronic HFpEF, COPD exacerbation, hypoxia
Expected length of stay greater than two midnights?: Yes
ELOS- Estimated Length of Stay in days: 3
I certify the patient meets the requirements for IP care: Yes
PRN Pain Medication Management As Directed
May give lesser potent ordered pain med per pt: Yes
preference::
Protocol:: Medication orders for pain may be administered in a
manner that supports deferring to patient preference
when the pt is:
- Requesting an ordered lesser potent pain medication.
Least to most potent pain medications are defined
as: acetaminophen < NSAID < tramadol < opioids
(morphine, oxycodone, hydromorphone).
- Requesting a lesser dose of the same medication IF
ORDERED.
- Requesting a less intrusive route of administration
if both routes are prescribed by the provider (PO <
IV).
09/09/25 16:24
Code Status As Directed
Resuscitation Status: Do not resuscitate
Reached after discussion with pt or family/Healthcare POA: Yes
Decision communicated with: patient
DNR Bracelet Application ONCE
09/09/25 16:38
Furosemide [Lasix] 80 mg IV NOW STA
09/09/25 16:41
Procalcitonin Stat
If negative, will antibiotics be d/c'd or not started: Yes
Does the patient have renal or hepatic impairment?: No
Any recent (w/in 48 hrs) physiologic stress (CPR, rhabdo): No
09/09/25 17:38
Acetaminophen [Tylenol] 650 mg PO Q4HPRN PRN
Ipratropium/Albuterol Sulfate [Duoneb] 3 ml INH R Q4HPRN PRN
09/09/25 17:38
CARDIOLOGY CONSULT Routine
Consulting Provider: Keenan Awad
Was physician already notified: Yes
HF DIETARY CONSULT Routine
HF EDUCATOR CONSULT Routine
Comment:
Activity As Directed
Activity Level: As Tolerated
Intake/ Output As Directed
Frequency: Per unit guidelines
Patient Education As Directed
Type: CHF folder
Comment: give on admission. Document in Interdisciplinary Education record
Sleep Apnea Assessment by RN As Directed
Comment:
Physician Instructions:
Vital Signs As Directed
Frequency: Per unit guidelines
Weight As Directed
Frequency: Daily
Type of Scale: Standing Scale
Comment: Daily morning weight. If unable to stand, use balanced bed scale.
Weight As Directed
Frequency: Once
Type of Scale: Standing Scale
Comment: Upon Admission. If unable to stand, use balanced bed scale.
Copd Education [RESP] Routine
O2 Therapy [RESP] Routine
Titrate/Wean O2 to maintain O2 sat greater than (%): 92
Special Instructions: adjust, if necessary, to avoid hyperoxia in CO2 retainers.
Use High Flow O2 if necessary
Pulse Ox/cont/shift [RESP] Routine
Quantity: 1
Special Instructions: Daily pulse oximetry at rest. If greater than 92% at rest also obtain pulse oximetry
while ambulating as tolerated.
Rx Pep / Acapela [RESP] Routine
09/09/25 18:17
Artificial Tears (Pf) [Refresh Eye Drops (Pf)] 1 drops BOTH EYES QIDPRN PRN
09/09/25 20:00
Apixaban [Eliquis] 5 mg PO BID
Carvedilol [Coreg] 12.5 mg PO BID
Ipratropium/Albuterol Sulfate [Duoneb] 3 ml INH R QID
Miconazole Nitrate [Desenex/Mitrazol/Zeasorb] 1 applic TOPICAL BID
cycloSPORINE [Restasis 0.05% Ophthalmic Emulsion] 1 drops BOTH EYES BID
09/09/25 22:00
Erythromycin (Ilotycin) [Erythromycin 0.5% Ophthalmic Ointment] 1 applic BOTH EYES HS
Oxycodone [Roxicodone] 20 mg PO TID
09/10/25 06:00
Levothyroxine [Synthroid] 150 mcg PO MOTUWETHFRSA@0600
09/10/25 07:23
Basic Metabolic Panel IN AM
Complete Blood Count/No Diff IN AM
09/10/25 08:00
Dexamethasone Sod Phosphate [Decadron] 4 mg IV Q12H
Docusate Sodium [Colace] 100 mg PO DAILY
Losartan [Cozaar] 50 mg PO DAILY
arbihnhmcdv-tgmsgrhae-bgrouwhx [Trelegy Ellipta] 1 inh INH R DAILY
09/10/25 17:00
Azithromycin 500 mg/250 ml [Zithromax Infusion] 500 mg in 250 ml IV Q24H
CefTRIAXone [Rocephin] 1,000 mg IV Q24H
09/10/25 22:00
Aspirin Low Dose EC [Aspir Low (Enteric Coated)] 81 mg PO HS
Atorvastatin [Lipitor] 40 mg PO HS
09/11/25 06:00
Basic Metabolic Panel IN AM
09/12/25 06:00
Basic Metabolic Panel IN AM
09/12/25 11:00
DC Protocol for Telemetry ONCE
Abnormal Lab Results
09/09/25
11:27
MCHC 29.3 L g/dL
(33.0-37.0)
RDW 15.5 H %
(11.5-14.5)
Plt Count 104 L 10^3/uL
(130-400)
Abs Immat Gran (auto) 0.1 H 10^3/uL
(0-0.05)
Absolute Neuts (auto) 7.2 H 10^3/uL
(1.4-6.5)
Absolute Lymphs (auto) 0.3 L 10^3/uL
(1.2-3.4)
Immature Gran % 0.6 H %
(0-0.5)
Neutrophils % 87.1 H %
(42.2-75.2)
Lymphocytes % 3.6 L %
(20.5-51.1)
Carbon Dioxide 34 H mmol/L
(22-30)
BUN 25 H mg/dl
(7-17)
Creatinine 1.3 H mg/dL
(0.6-1.0)
Glucose 132 H mg/dl
(70-99)
Calcium 8.1 L mg/dl
(8.4-10.2)
AST 72 H U/L
(14-36)
ALT 47 H U/L
(0-35)
09/09/25 11:27
09/09/25 11:27
Vital Signs
Initial and Last Documented VS:
Initial Vital Signs
Temp Pulse Resp BP Pulse Ox
98.1 F 69 18 146/80 90
09/09/25 11:17 09/09/25 11:17 09/09/25 11:17 09/09/25 11:17 09/09/25 11:17
Last Documented Vital Signs
Temp Pulse Resp BP Pulse Ox
97.8 F 75 18 186/89 96
09/10/25 07:36 09/10/25 07:51 09/10/25 07:51 09/10/25 07:36 09/10/25 07:51
<Cecil Umana MD - Last Filed: 09/09/25 15:46>
Orders/Labs/Results
Orders:
Orders
09/09/25 11:27
Complete Blood Count/With Diff Urgent
Comprehensive Metabolic Panel Urgent
NT-proBNP Urgent
Comment: ADD ON
Troponin I Urgent
09/09/25 11:33
EKG [Electrocardiogram (*1)] Urgent
Reason for Study: Tachycardia
09/09/25 11:34
EKG- Treatment ONCE
09/09/25 12:26
Ipratropium/Albuterol Sulfate [Duoneb] 3 ml INH R NOW STA
CR Chest - 2 Views Urgent
Comment: previous pleural effusions
Reason For Exam: SOB, hx luing Ca
US Periph Venous LOWER Ext Derrick Urgent
Comment:
Reason For Exam: LE swelling
09/09/25 12:37
COVID-19 Antigen Urgent
Source: Nasal Swab
Influenza A+B Rapid Molecular Urgent
TAHIR Source: Nasal Swab
Specimen Description:
09/09/25 Dinner
1800 calorie (15 carb) Diabetic
At Your Request: Limited Participation
Diabetic Diet: Cholesterol Lowering
09/09/25 15:22
Azithromycin 500 mg/250 ml [Zithromax Infusion] 500 mg in 250 ml IV NOW
CefTRIAXone [Rocephin] 2,000 mg IV NOW STA
MethylPREDNISolone PF [Solu-Medrol Pf] 125 mg IV NOW STA
09/09/25 15:40
Sterile Water [Sterile Water For Injection] 20 ml .ROUTE .STK-MED
09/09/25 16:00
Add On- LAB Routine
Tests Added?: pBNP
09/09/25 16:21
Admit/Transfer Patient As Directed
Co-Sign Provider:
Level of Care: Inpatient admission
Assign to:: Telemetry
Physician / Group: Clarence Magallon
Diagnosis: acute on chronic HFpEF, COPD exacerbation, hypoxia
Reason for Telemetry: Acute Heart Failure
Date to Stop Telemetry: 09/12/25
Time to Stop Telemetry: 11:00
Reason for Hospitalization: acute on chronic HFpEF, COPD exacerbation, hypoxia
Expected length of stay greater than two midnights?: Yes
ELOS- Estimated Length of Stay in days: 3
I certify the patient meets the requirements for IP care: Yes
PRN Pain Medication Management As Directed
May give lesser potent ordered pain med per pt: Yes
preference::
Protocol:: Medication orders for pain may be administered in a
manner that supports deferring to patient preference
when the pt is:
- Requesting an ordered lesser potent pain medication.
Least to most potent pain medications are defined
as: acetaminophen < NSAID < tramadol < opioids
(morphine, oxycodone, hydromorphone).
- Requesting a lesser dose of the same medication IF
ORDERED.
- Requesting a less intrusive route of administration
if both routes are prescribed by the provider (PO <
IV).
09/09/25 16:24
Code Status As Directed
Resuscitation Status: Do not resuscitate
Reached after discussion with pt or family/Healthcare POA: Yes
Decision communicated with: patient
DNR Bracelet Application ONCE
09/09/25 16:38
Furosemide [Lasix] 80 mg IV NOW STA
09/09/25 16:41
Procalcitonin Stat
If negative, will antibiotics be d/c'd or not started: Yes
Does the patient have renal or hepatic impairment?: No
Any recent (w/in 48 hrs) physiologic stress (CPR, rhabdo): No
09/09/25 17:38
Acetaminophen [Tylenol] 650 mg PO Q4HPRN PRN
Ipratropium/Albuterol Sulfate [Duoneb] 3 ml INH R Q4HPRN PRN
09/09/25 17:38
CARDIOLOGY CONSULT Routine
Consulting Provider: Keenan Awad
Was physician already notified: Yes
HF DIETARY CONSULT Routine
HF EDUCATOR CONSULT Routine
Comment:
Activity As Directed
Activity Level: As Tolerated
Intake/ Output As Directed
Frequency: Per unit guidelines
Patient Education As Directed
Type: CHF folder
Comment: give on admission. Document in Interdisciplinary Education record
Sleep Apnea Assessment by RN As Directed
Comment:
Physician Instructions:
Vital Signs As Directed
Frequency: Per unit guidelines
Weight As Directed
Frequency: Daily
Type of Scale: Standing Scale
Comment: Daily morning weight. If unable to stand, use balanced bed scale.
Weight As Directed
Frequency: Once
Type of Scale: Standing Scale
Comment: Upon Admission. If unable to stand, use balanced bed scale.
Copd Education [RESP] Routine
O2 Therapy [RESP] Routine
Titrate/Wean O2 to maintain O2 sat greater than (%): 92
Special Instructions: adjust, if necessary, to avoid hyperoxia in CO2 retainers.
Use High Flow O2 if necessary
Pulse Ox/cont/shift [RESP] Routine
Quantity: 1
Special Instructions: Daily pulse oximetry at rest. If greater than 92% at rest also obtain pulse oximetry
while ambulating as tolerated.
Rx Pep / Acapela [RESP] Routine
09/09/25 18:17
Artificial Tears (Pf) [Refresh Eye Drops (Pf)] 1 drops BOTH EYES QIDPRN PRN
09/09/25 20:00
Apixaban [Eliquis] 5 mg PO BID
Carvedilol [Coreg] 12.5 mg PO BID
Ipratropium/Albuterol Sulfate [Duoneb] 3 ml INH R QID
Miconazole Nitrate [Desenex/Mitrazol/Zeasorb] 1 applic TOPICAL BID
cycloSPORINE [Restasis 0.05% Ophthalmic Emulsion] 1 drops BOTH EYES BID
09/09/25 22:00
Erythromycin (Ilotycin) [Erythromycin 0.5% Ophthalmic Ointment] 1 applic BOTH EYES HS
Oxycodone [Roxicodone] 20 mg PO TID
09/10/25 06:00
Levothyroxine [Synthroid] 150 mcg PO MOTUWETHFRSA@0600
09/10/25 07:23
Basic Metabolic Panel IN AM
Complete Blood Count/No Diff IN AM
09/10/25 08:00
Dexamethasone Sod Phosphate [Decadron] 4 mg IV Q12H
Docusate Sodium [Colace] 100 mg PO DAILY
Losartan [Cozaar] 50 mg PO DAILY
apchykivgaq-lcynyppeo-dylrxmwz [Trelegy Ellipta] 1 inh INH R DAILY
09/10/25 17:00
Azithromycin 500 mg/250 ml [Zithromax Infusion] 500 mg in 250 ml IV Q24H
CefTRIAXone [Rocephin] 1,000 mg IV Q24H
09/10/25 22:00
Aspirin Low Dose EC [Aspir Low (Enteric Coated)] 81 mg PO HS
Atorvastatin [Lipitor] 40 mg PO HS
09/11/25 06:00
Basic Metabolic Panel IN AM
09/12/25 06:00
Basic Metabolic Panel IN AM
09/12/25 11:00
DC Protocol for Telemetry ONCE
Abnormal Lab Results
09/09/25
11:27
MCHC 29.3 L g/dL
(33.0-37.0)
RDW 15.5 H %
(11.5-14.5)
Plt Count 104 L 10^3/uL
(130-400)
Abs Immat Gran (auto) 0.1 H 10^3/uL
(0-0.05)
Absolute Neuts (auto) 7.2 H 10^3/uL
(1.4-6.5)
Absolute Lymphs (auto) 0.3 L 10^3/uL
(1.2-3.4)
Immature Gran % 0.6 H %
(0-0.5)
Neutrophils % 87.1 H %
(42.2-75.2)
Lymphocytes % 3.6 L %
(20.5-51.1)
Carbon Dioxide 34 H mmol/L
(22-30)
BUN 25 H mg/dl
(7-17)
Creatinine 1.3 H mg/dL
(0.6-1.0)
Glucose 132 H mg/dl
(70-99)
Calcium 8.1 L mg/dl
(8.4-10.2)
AST 72 H U/L
(14-36)
ALT 47 H U/L
(0-35)
09/09/25 11:27
09/09/25 11:27
Vital Signs
Initial and Last Documented VS:
Initial Vital Signs
Temp Pulse Resp BP Pulse Ox
98.1 F 69 18 146/80 90
09/09/25 11:17 09/09/25 11:17 09/09/25 11:17 09/09/25 11:17 09/09/25 11:17
Last Documented Vital Signs
Temp Pulse Resp BP Pulse Ox
97.8 F 75 18 186/89 96
09/10/25 07:36 09/10/25 07:51 09/10/25 07:51 09/10/25 07:36 09/10/25 07:51
<Yaquelin Rolle PA-C - Last Filed: 09/10/25 09:02>
MDM/Problems Addressed
Differential Diagnosis Includes:
Not limited to: COPD exacerbation, bronchitis, pneumonia, pleural effusion, acute coronary syndrome, progression of disease, pulmonary embolism, etc.
MDM/Problems Addressed:
89 year-old female with known lung cancer on Keytruda presents with acute on chronic shortness of breath as well as mild chest pressure. No fever, productive cough. Patient had recent VALDEZ/cardioversion and was placed on Eliquis a few days ago.
Patient is hypoxic on arrival to ED and placed on 2 L O2. Vitals otherwise stable, patient afebrile.
On exam � patient appears chronically ill. Lung sounds diminished bilaterally with expiratory wheeze. Cardiac exam unremarkable. Abdomen benign. She does have asymmetric swelling of LLE without significant erythema or areas of tenderness.
Differential as above. Possible infectious etiology such as bronchitis or pneumonia. Could be progression of her known lung cancer. Other considerations would be acute coronary syndrome or PE.
Will start with basic labs, troponin, chest x-ray, and ultrasound of bilateral lower extremities. Will give Duoneb.
Update: Labs reviewed. CBC unremarkable. Chemistry reveals renal insufficiency was appears stable.
Troponin undetectable. Ultrasound without evidence of DVT.
Chest x-ray shows findings of likely known lung CA as well as increased opacity in right lung concerning for possible pneumonia.
Overall impression is likely acute COPD exacerbation secondary to pneumonia. Given patient is requiring supplemental O2 will admit for continued management. Will give dose of IV steroids and cover with antibiotics. Patient accepted to hospitalist
service in stable condition.
Chronic conditions affecting care:
Lung CA on Keytruda, history of pulmonary embolism, COPD
Acute Exacerbation and/or Progression of Chronic Illness:
Acute COPD exacerbation
<Yaquelin Rolle PA-C - Last Filed: 09/10/25 09:02>
*Pulse Oximetry
SaO2: 95
Nasal Cannula flow liters per minute: 2
Oxygen Mode of Delivery: Room air
Patient hypoxic: yes
*EKG
Interpreted by ED Provider?: Yes
EKG Intrepretation Date: 09/09/25
Interpretation: abnormal
Comparison EKG: changes noted
Heart Rate: 61
Rate: normal
Rhythm: sinus
Odd: normal axis
Interval: normal QT interval
QRS Pattern: normal QRS
Ischemia: non-specific ST changes
*Size Cutter Interpretation
Rate: normal
Interpretation: normal
Heart Rate: 68
Rhythm: sinus
*Critical Care Note
Total Time (30-74mins, 75-104mins- exclusive of procedures): Not Applicable
Data Reviewed
Review of Other/Old Records Reveals: Testing (VALDEZ/cardioversion on 06/04/2025-successfully cardioverted from atrial fibrillation into normal sinus rhythm)
Source: previous hospital records
ED Attending Note
<Yaquelin Rolle PA-C - Last Filed: 09/10/25 09:02>
-
Portions of this chart may have been created with voice recognition software.� Occasional wrong word or��sound alike� substitutions may have occurred due to the inherent limitations of voice recognition software.
<Cecil Umana MD - Last Filed: 09/09/25 15:46>
ED Attending Note
Patient seen and examined by attending physician: Yes
ED Attending Note:
I have seen and evaluated the patient with a [id number] encounter. I have spoken to the advance practicer provider and involved in the medical history, the physical exam, medical decision making.
Evaluation and management service: agree unless noted differently below.
Results interpretation: agree unless noted differently below.
Focused HPI: 89-year-old female with history as noted significant for COPD, CAD who presents to the ER for evaluation of shortness of breath. Patient reports she has chronic symptoms but they have been acutely worse over the past 4 to 5 days. She
says that this morning she could not even get out of bed due to shortness of breath and wheezing. EMS called to bring her to the hospital. She has had nonproductive cough. She has chronic swelling in the legs for which she uses compression socks,
no worse than usual. No fevers or chills reported. No chest pain. No other acute complaints.
Physical exam: Awake and alert not in distress. Hypoxic requiring 2 L nasal cannula to maintain saturations. Mild tachypnea. Normotensive with heart rate in the 60s. She has diffuse bilateral wheezing. She has bilateral lower extremity edema
left somewhat greater than right. No cardiac rubs gallops or murmurs appreciated.
Medical Decision Makin-year-old female presents for evaluation of shortness of breath associated with wheezing and coughing worsening over the past few days. Vitals and exam as above. Labs were sent off including a CBC which shows mild
thrombocytopenia, CMP which shows stable CKD. Troponin undetectable. COVID and flu negative. Chest x-ray shows likely right sided pneumonia. DVT study negative bilaterally. Overall suspect COPD exacerbation with likely a right sided pneumonia.
Will treat with antibiotics, steroids, nebs. Admit for continued management.
Discharge Plan
Departure
Patient Disposition: Admit
Date of Disposition: 09/09/25
Time of Disposition: 15:24
Presentation/result/management discussed w/ accepting MD/DO: Hospitalist
Discharge Problem:
COPD exacerbation, Community acquired pneumonia, Hypoxia
Interventions
Interventions:
*Risk Screen - Suicide Last Done: 09/09/25 11:17
*General Assessment Last Done: 09/09/25 11:17
*Neglect/Abuse Screening Last Done: 09/09/25 11:17
*ED- Fall Risk Assessment Last Done: 09/09/25 11:17
*ED COVID-19 Vaccine History Last Done: 09/09/25 11:17
*ED Influenza Vaccine History Last Done: 09/09/25 11:17
*Nursing Disposition Last Done: 09/09/25 17:53
ED- Cardiac Assessment Last Done: 09/09/25 11:52
ED- Pulmonary Assessment Last Done: 09/09/25 11:52
Discharge Date and Time
Discharge Date/Time: 09/09/25 17:54
[2025-09-09] MEDS: DUONEB 3 ML INH ×2 (12:39→19:16)
[2025-09-09 13:04] LABS: COVID-19 Antigen Negative (Negative)
[2025-09-09 13:20] LABS: Troponin I < 0.012 ng/ml
--- NOTE | 2025-09-09 15:29 | HPS.HSE ---
Addendum entered and electronically signed by Clarence Magallon MD 09/09/25 17:33:
This is an addendum to H&P written by Whitley Dukes on 09/09/2025. �Patient seen and examined independently with RESIDENTIAL CONCIERGE.
89-year-old female past medical history of recently diagnosed atrial fibrillation on 09/04 status post VALDEZ/cardioversion started on Eliquis, CKD 3B, CAD, possible HFpEF, COPD, lung cancer on Keytruda, diabetes, TIA, hypercholesteremia,
hypothyroidism, hypertension, lumbar radiculopathy/chronic pain, history of pancreatitis, chronic lower extremity edema, anxiety/depression, presenting with chest pressure and worsening shortness of breath and nonproductive cough and weight gain.�
She has chronic chest pressure/shortness of breath but got worse last night with minimal exertion. �No fever. Chronic lower extremity edema stable.
Vital signs show hypoxemia requiring 2 L oxygen.
Labs show stable CKD creatinine 1.3. �Mild transaminitis. �Troponin negative.
Chest x-ray appears to show right-sided pneumonia vs pulmonary edema, report pending.� COVID and flu negative. �Venous ultrasound showed no DVT.
Patient with COPD exacerbation/more likely CHF exacerbation rather than PNA. Check Cardiac BNP. Trend troponins.� DuoNebs, dexamethasone, IV lasix, cardiology, ceftriaxone/doxycycline for now. Check procal and can likely stop Abx.�
Original Note:
Family Physician
-
Family Physician: Chyna Nichols
Chief Complaint
-
chest pressure and shortness of breath
History of Present Illness
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
cancer who presented to [facility] ED for evaluation of chest pressure and shortness of breath. Patient states that she feels she was in a normal state of health yesterday with no complaints. This morning when she woke she states she was so short of
breath and significant non-radiating chest pressure present she was not even able to get to the restroom. Patient also explains that she had increased edema in bilateral lower extremities with weight gain but unable to state how much gain she has
had. Patient with recent hospitalization 07/14/2025 - 07/17/2025 for similar presentation and treated for pneumonia +/- acre heart failure with preserved ejection fraction. Patient weight 07/16/2025 79.549kg and 88.6kg today. Patient reports that
she feels like she has a dry cough, more like feeling of needing to clear throat. Denies fever, chills, nausea, vomiting, diarrhea or urinary symptoms.
Medical History
Past Medical History
Past Medical History: Reports Other
Additional Past Medical History:
COPD
HFpEF
paroxysmal atrial fibrillation
hypertension
hyperlipidemia
hypothyroidism
type 2 diabetes
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
lung cancer
pancreatitis
ileus
chronic lumbar radiculopathy
Past Surgical History: Reports Other
Additional Past Surgical History:
cholecystectomy
Lumbar Laminectomy L3-5
Right parotidectomy
thyroidectomy
Social History
Tobacco: Former Smoker
Alcohol: None
Drug: None
Personal:
Living: With Family
Family History
Family History: Not pertinent
Allergies / Home Medications
Allergies reflects when Allergies were last updated in [employer].
Home Medications with original date entered in [employer]
Allergy/Medication List:
Allergies
Allergy/AdvReac Type Severity Reaction Status Date / Time
No Known Allergies Allergy Verified 09/09/25 11:21
Home Medications
atorvastatin 40 mg tablet 40 mg PO HS High cholesterol 10/09/18
glipizide 5 mg tablet 5 mg PO QPM Diabetes 06/27/22
levothyroxine 150 mcg tablet (Synthroid) 150 mcg PO MOTUWETHFRSA@0600 Thyroid 06/27/22
oxycodone 20 mg tablet 20 mg PO TID severe Pain 06/27/22
docusate sodium 100 mg capsule (Colace) 100 mg PO DAILY Constipation 02/26/25
furosemide 40 mg tablet 40 mg PO DAILY Fluid Retention/Swelling 02/26/25
multivitamin 1 tab PO DAILY Supplement 02/26/25
aspirin 81 mg tablet,delayed release 81 mg PO HS Blood Clot Prevention/Tx 05/09/25
cyclosporine 0.05 % eye drops in a dropperette 1 drp BOTH EYES BID Eye Condition 05/09/25
fluticasone fur. 100 mcg-umeclid 62.5 mcg-vilant 25 mcg inhalat.powder (Trelegy Ellipta) 1 inh inhalation R DAILY Lung/Breathing Issues 05/09/25
losartan 50 mg tablet 50 mg PO DAILY #30 tabs 05/11/25
carvedilol 12.5 mg tablet 12.5 mg PO BID Blood Pressure 07/14/25
dextran 70-hypromellose eye drops in a dropperette (Artificial Tears (PF) drops in a dropperette) 1 drp BOTH EYES QIDPRN PRN dry eyes 07/14/25
erythromycin 5 mg/gram (0.5 %) eye ointment 1 applic BOTH EYES HS Eye Condition 07/14/25
apixaban 5 mg tablet (Eliquis) 5 mg PO BID 09/04/25
miconazole nitrate 2 % topical powder (Miconazorb AF) 1 applic topical BID groin 09/09/25
Review of Systems
-
History Source: Patient
Constitutional: Reports Weight Gain; Denies Fever or Chills
EENT: Denies Sore Throat
Respiratory: Reports Cough (dry cough) and Trouble Breathing (shortness of breath ); Denies Hemoptysis
Cardiac: Reports Chest Pain (chest pressure, non-radiating ); Denies Diaphoresis, Palpitations or Syncope
Abdomen/GI: Denies Abdominal Pain, Nausea, Vomiting or Diarrhea
: Denies Dysuria, Frequency or Urgency
Musculoskeletal: Reports Edema (BLLE edema ); Denies Joint Pain
Skin: Denies Rash
Neurological: Denies Dizzy, Headache or Weakness
Endocrine: Denies Polyuria or Polydipsia
Physical Exam
Vital Signs
Vital Signs
Temp Pulse Resp BP Pulse Ox
98.1 F 60 17 165/71 96
09/09/25 11:17 09/09/25 14:00 09/09/25 14:00 09/09/25 14:00 09/09/25 14:00
Physical Exam
General: Well Developed, Well Nourished, Comfortable and Conversant
HEENT: NormoCephalic, Moist mucous membranes, Atraumatic, PERRLA, Ears Appear Normal and Oxygen (2 liters )
Respiratory: Wheezes (scattered ) and Decreased Breath Sounds; No Rales, Rhonchi, Crackles, Non Labored Respirations or Accessory Resp Muscle Use
Cardiac: S1/S2, Regular Rhythm and Peripheral Edema; No Murmur, Rub or Gallop
GI: Soft, Non Tender, Non Distended and Normal Bowel Sounds
Musculoskeletal: No Clubbing, No Cyanosis, Edema, Left Lower Extremity and Edema, Right Lower Extremity
Skin: Warm and IV/Catheter Site
Neuro: Awake, AO x 3 and Nonfocal/grossly intact
Psych: Calm
Laboratory Results
-
09/09/25 11:27
09/09/25 11:27
Laboratory Results
Total Bilirubin 0.9 mg/dl (0.2-1.3) 09/09/25 11:27
AST 72 U/L (14-36) H 09/09/25 11:27
ALT 47 U/L (0-35) H 09/09/25 11:27
Alkaline Phosphatase 118 U/L (38-126) 09/09/25 11:27
Troponin I < 0.012 ng/ml 09/09/25 11:27
Data Reviewed
-
Diagnostic Radiology: Report Reviewed by me (CXR: The right perihilar opacity is consistent with a known malignancy although appears slightly increased in size from prior for which superimposed pneumonia or atelectasis is possible. There is a
small/moderate right-sided pleural effusion and a likely small left pleural effusion. There is mild i)
Ultrasound: Report Reviewed by me (BLLE Delmi Venous: No evidence of deep venous thrombosis bilaterally. Slightly limited evaluation of the distal left lower extremity.)
Medical Tests (Nuc Med, Echo, EKG etc): Report Reviewed by me (EKG: NORMAL SINUS RHYTHM SEPTAL INFARCT (CITED ON OR BEFORE 04-Sep-2025))
Lab Data: Labs Reviewed by me (neut 87.1, BUN 25, creat 1.3, est CrCl 39.80, eGFR 39.801, AST 72, ALT 47)
Impression/Plan
-
IMPRESSION/PLAN:
#shortness of breath and chest pressure 2/2 acute on chronic HFpEF vs. COPD exacerbation vs. pneumonia
weight gain 07/16/2025 79.549kg - 09/09/2025 88.6kg
neut 87.1, AST 72, ALT 47
Covid: negative
Influenza: negative
EKG: NORMAL SINUS RHYTHM
SEPTAL INFARCT (CITED ON OR BEFORE 04-Sep-2025)
CXR: The right perihilar opacity is consistent with a known malignancy although appears slightly increased in size from prior for which superimposed pneumonia or atelectasis is possible.
There is a small/moderate right-sided pleural effusion and a likely small left pleural effusion. There is mild interstitial opacification suggestive of mild interstitial edema.
BLLE periph venous: No evidence of deep venous thrombosis bilaterally. Slightly limited evaluation of the distal left lower extremity.
procal: pending
pBNP: pending
- Admit to telemetry
- Consult Cardiology
- IV Lasix 40mg daily
- continue antibiotics until procal results
- DuoNeb QID and PRN
- Decadron 4mg q12h
- supportive care
#HFpEF
- daily weights
- I & Os
- hold PO Lasix
- IV Lasix 40mg daily
#paroxysmal atrial fibrillation
EKG: NORMAL SINUS RHYTHM
SEPTAL INFARCT (CITED ON OR BEFORE 04-Sep-2025)
- continue apixaban
#COPD
- continue Trelegy Ellipta
#hypertension
- continue carvedilol and losartan
#hyperlipidemia
- continue atorvastatin
#hypothyroidism
- continue levothyroxine
#type 2 diabetes
- AccuCheck AC & HS
- SSI
- hold glipizide
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
BUN 25, creat 1.3, est CrCl 39.80, eGFR 39.801
appears to be baseline
- monitor BMP
#Hx lung cancer
Code status: DNR
DVT prophylaxis: Eliquis
[2025-09-09] MEDS: SOLU-MEDROL PF 125 MG IV (16:09)
[2025-09-09] MEDS: ROCEPHIN 2000 MG IV (16:30)
[2025-09-09] MEDS: ZITHROMAX INFUSION 250 IV (16:41)
[2025-09-09] MEDS: LASIX 80 MG IV (16:51)
--- NOTE | 2025-09-09 16:59 | CON.CAR ---
Addendum entered and electronically signed by Keenan Awad DO 09/10/25 16:38:
I saw and examined the patient 09/09/2025 at 1630.
The Diploma Medical Assistant's note was reviewed and I agree with the note.
Comment:
Plan:
She is status post successful VALDEZ/cardioversion August in sinus rhythm. Despite this she reported worsening dyspnea and orthopnea.
Her proBNP is the highest that it has ever been. She appears to be in heart failure.
Recommend IV Lasix diuresis
Monitor daily weights, I's and O's and creatinine.
With recent VALDEZ showing preserved LV function, no need to repeat at this time.
Check troponin
Continue losartan and Coreg for hypertension
Remains sinus rhythm continue anticoagulation with Eliquis
Would consider stopping aspirin from a cardiac standpoint.
Discussed with family at bedside.
Original Note:
Consultation
Consultation Request
Date/Time Consultation Requested: 09/09/2025
Date/Time Consultation Performed: 09/09/2025
Requesting Provider: Dr. Magallon for the hospitalist
Performing Provider: Dr. Awad
Reason for Consultation: Acute HFpEF
Medical History
-
History of Present Illness:
Patient came to the ER with SOB and orthopnea and cardiology is consulted for acute HF. Patient was seen in the cardiology office on 09/03/2025 and found to be in newly diagnosed A-fib with RVR. Patient was not in any acute distress so she was
started on Eliquis and set up for VALDEZ/CV the following day, 09/04/2025. Patient had successful VALDEZ/CV. Patient reports she saw no symptomatic improvement with taoism of SR. Patient reports worsening SOB in the 12 hours just prior to
admission described as being out of breath while trying to use the bathroom and then orthopnea and then resting SOB. Patient thinks that this feels similar to when she has had a COPD exacerbation before. EF was preserved on most recent echo and
VALDEZ and patient reports compliance with her Lasix 80 mg PO daily. Patient reports she has not been told before that she has CHF.
PMH:
COPD
Chronic HFpEF
Paroxysmal atrial fibrillation
s/p successful VALDEZ/CV 09/04/2025
Chronic Eliquis OAC
HTN
CKD 3B
h/o THINNER SPRAYER left renal artery
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
Nonobstructive CAD by cardiac cath 2009
Past Medical History
Past Medical History: Other (In HPI)
Past Surgical History: Cholecystectomy and Other (Right parotidectomy, thyroidectomy)
Social History
Tobacco: Former Smoker
Alcohol: None
Drug: None
Personal:
Living: With Family
Family History
Family History: CAD and Cancer
Allergies / Home Medications
Allergy/AdvReac Type Severity Reaction Status Date / Time
No Known Allergies Allergy Verified 09/09/25 11:21
�Medication �Instructions �Recorded �Confirmed �Type
atorvastatin 40 mg tablet 40 mg PO HS High cholesterol 10/09/18 09/09/25 History
glipizide 5 mg tablet 5 mg PO QPM Diabetes 06/27/22 09/09/25 History
levothyroxine 150 mcg tablet 150 mcg PO MOTUWETHFRSA@0600 06/27/22 09/09/25 History
(Synthroid) Thyroid
oxycodone 20 mg tablet 20 mg PO TID severe Pain 06/27/22 09/09/25 History
docusate sodium 100 mg capsule 100 mg PO DAILY Constipation 02/26/25 09/09/25 History
(Colace)
furosemide 40 mg tablet 40 mg PO DAILY Fluid 02/26/25 09/09/25 History
Retention/Swelling
multivitamin 1 tab PO DAILY Supplement 02/26/25 09/09/25 History
aspirin 81 mg tablet,delayed 81 mg PO HS Blood Clot 05/09/25 09/09/25 History
release Prevention/Tx
cyclosporine 0.05 % eye drops in a 1 drp BOTH EYES BID Eye Condition 05/09/25 09/09/25 History
dropperette
fluticasone fur. 100 mcg-umeclid 1 inh inhalation R DAILY 05/09/25 09/09/25 History
62.5 mcg-vilant 25 mcg Lung/Breathing Issues
inhalat.powder (Trelegy Ellipta)
losartan 50 mg tablet 50 mg PO DAILY #30 tabs 05/11/25 09/09/25 Rx
carvedilol 12.5 mg tablet 12.5 mg PO BID Blood Pressure 07/14/25 09/09/25 History
dextran 70-hypromellose eye drops 1 drp BOTH EYES QIDPRN PRN dry eyes 07/14/25 09/09/25 History
in a dropperette (Artificial Tears
(PF) drops in a dropperette)
erythromycin 5 mg/gram (0.5 %) eye 1 applic BOTH EYES HS Eye Condition 07/14/25 09/09/25 History
ointment
apixaban 5 mg tablet (Eliquis) 5 mg PO BID 09/04/25 09/09/25 History
miconazole nitrate 2 % topical 1 applic topical BID groin 09/09/25 09/09/25 History
powder (Miconazorb AF)
Review of Systems
-
History Source: Patient and Family (Son bedside helping with HPI)
All other systems: Negative unless noted
Physical Exam
Vital Signs
Temp Pulse Resp BP Pulse Ox
98.1 F 68 17 157/124 96
09/09/25 11:17 09/09/25 16:51 09/09/25 14:00 09/09/25 16:51 09/09/25 14:00
GEN: NAD, AAO x 3
HEENT: EOMI, MMM
LUNGS: 2 L NC. Slight expiratory wheeze, no rales
CV: SR on telemetry. Reg, S1/S2, 1/6 syst LSB, no gallop
ABD: ND
EXT: +2 left greater than right LE edema
NEURO: Gross non-focal
SKIN: No rash
Lab Results
09/09/25 11:27
09/09/25 11:27
Troponin I < 0.012 ng/ml 09/09/25 11:27
Impression / Plan
-
PCP: Dr. Clemente and [place]
Cardiology: Dr. Westbrook
Oncology: Dr. Miller
Impression:
Admitted with acute hypoxic respiratory failure with AECOPD and CHF 09/09/2025
Acute hypoxic respiratory failure
AE COPD
Acute on chronic HFpEF
Paroxysmal atrial fibrillation
s/p successful VALDEZ/CV 09/04/2025
Chronic Eliquis OAC
HTN
CKD 3B
h/o THINNER SPRAYER left renal artery
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
Nonobstructive CAD by cardiac cath 2009
Echo 07/15/2025: EF 65 to 70%, normal RV size and function, mild MAC and mild MR, mild aortic regurgitation, mild TR with PAP 43 mmHg
VALDEZ 09/04/2025: EF 55%, upper normal RV size with low normal RV function, no evidence of JUAN PABLO thrombus, mild aortic regurgitation, mild MR, moderate TR
Plan:
-Patient came to the ER with SOB and orthopnea and cardiology is consulted for acute HF. Patient was seen in the cardiology office on 09/03/2025 and found to be in newly diagnosed A-fib with RVR. Patient was not in any acute distress so she was
started on Eliquis and set up for VALDEZ/CV the following day, 09/04/2025. Patient had successful VALDEZ/CV. Patient reports she saw no symptomatic improvement with taoism of SR. Patient reports worsening SOB in the 12 hours just prior to
admission described as being out of breath while trying to use the bathroom and then orthopnea and then resting SOB. Patient thinks that this feels similar to when she has had a COPD exacerbation before. EF was preserved on most recent echo and
VALDEZ and patient reports compliance with her Lasix 80 mg PO daily. Patient reports she has not been told before that she has CHF.
-ECG reviewed by me looks like SR and QTc is 398 ms
-proBNP 5400 which is her highest level ever and CXR suggests interstitial edema. Lasix 80 mg IV x 1 now ordered by me while in the ER. Admission orders adjusted by me to increase Lasix to 80 mg IV BID. Patient was taking Lasix 80 mg PO daily
prior to admission.
-Cre on admission is 1.3 which is her baseline, follow BMP daily. Patient was CKD 3B and has a known THINNER SPRAYER of the left renal artery
-No need to repeat echo, EF is 55% without significant valve disease on VALDEZ from 09/04/2025
-Outpatient dose of losartan 50 mg daily should be continued for now, will hold if needed in the setting of JOSEPH
-Outpatient dose of Coreg 12.5 mg BID should be continued
-Patient is not chronically on SGLT2 inhibitor
-Patient with newly diagnosed paroxysmal A-fib on 09/03/2025 and then underwent successful VALDEZ/CV 09/04/2025 remains in SR on ECG and telemetry reviewed by me today. Outpatient dose of Eliquis 5 mg BID should be continued without interruption.
-Consider stopping outpatient dose of aspirin
[2025-09-09 17:26] LABS: Procalcitonin < 0.05 ng/ml (0.0-0.25)
[2025-09-09 18:07] LABS: Glucose - Point of Care 109 mg/dl (70-99)
--- NOTE | 2025-09-09 18:26 | PTCARENOTE ---
Pt transferred from ED. Pt AAOX3, VSS, able to make needs known. Pt oriented to unit, call cardoso within reach. Will continue with current plan.
[2025-09-09] MEDS: COREG 12.5 MG PO (19:46)
[2025-09-09] MEDS: RESTASIS 0.05% OPHTHALMIC EMULSION 1 DROPS BOTH EYES (19:46)
[2025-09-09] MEDS: ELIQUIS 5 MG PO (19:47)
[2025-09-09] MEDS: DESENEX/MITRAZOL/ZEASORB 1 APPLIC TOPICAL (19:47)
[2025-09-09] MEDS: ERYTHROMYCIN 0.5% OPHTHALMIC OINTMENT 1 APPLIC BOTH EYES (21:30)
[2025-09-09] MEDS: ROXICODONE 20 MG PO (21:30)
[2025-09-09 21:34] LABS: Glucose - Point of Care 225 mg/dl (70-99)
[2025-09-10 03:00] VITALS: BP 150/69
[2025-09-10 05:02] VITALS: BMI 30.1
[2025-09-10] MEDS: SYNTHROID 150 MCG PO (05:14)
[2025-09-10 07:36] VITALS: BP 186/89
[2025-09-10] MEDS: DESENEX/MITRAZOL/ZEASORB 1 APPLIC TOPICAL ×2 (07:40→19:15)
[2025-09-10] MEDS: DECADRON 4 MG IV (07:40)
[2025-09-10] MEDS: ROXICODONE 20 MG PO ×3 (07:40→21:40)
[2025-09-10] MEDS: COZAAR 50 MG PO (07:40)
[2025-09-10] MEDS: COLACE 100 MG PO (07:40)
[2025-09-10] MEDS: ELIQUIS 5 MG PO ×2 (07:40→19:15)
[2025-09-10] MEDS: LASIX 80 MG IV ×2 (07:41→16:42)
[2025-09-10] MEDS: COREG 12.5 MG PO ×2 (07:41→19:15)
[2025-09-10] MEDS: RESTASIS 0.05% OPHTHALMIC EMULSION 1 DROPS BOTH EYES ×2 (07:41→19:15)
[2025-09-10 07:48] LABS: Hematocrit 39.4 % (37.0-47.0); Hemoglobin 12.3 g/dL (12.0-16.0); Mean Corp Hgb Conc. 31.2 g/dL (33.0-37.0); Mean Corpuscular Volume 91.0 fL (81.0-99.0); Platelet Count 106 10^3/uL (130-400); Red Cell Dist. Width 15.4 % (11.5-14.5)
[2025-09-10] MEDS: DUONEB 3 ML INH (07:49)
[2025-09-10] MEDS: SYMBICORT 80/4.5 MCG INHALER 2 PUFF INH ×2 (07:49→19:50)
[2025-09-10] MEDS: SPIRIVA RESPIMAT 2.5 MCG 2 PUFF INH (07:49)
[2025-09-10 08:45] LABS: Blood Urea Nitrogen 30 mg/dl (7-17); Calcium 8.0 mg/dl (8.4-10.2); Carbon Dioxide 35 mmol/L (22-30); Chloride 101 mmol/L (98-107); Estimated Creatinine Clearance 33 ml/min; Glucose 180 mg/dl (70-99); Potassium 4.5 mmol/L (3.5-5.1); Sodium 142 mmol/L (135-145); eGFR 39.80
[2025-09-10 11:35] VITALS: BP 153/63
[2025-09-10] MEDS: VENTOLIN NEBULES 2.5 MG INH ×3 (11:57→19:50)
--- NOTE | 2025-09-10 13:01 | W.PN.CARDCBS ---
Today's Communication / Plan
-
Continue IV diuresis
Impression / Plan
-
.
PCP: Dr. Clemente and [place]
Cardiology: Dr. Westbrook
Oncology: Dr. Miller
Impression:
Admitted with acute hypoxic respiratory failure with AECOPD and CHF 09/09/2025
Acute hypoxic respiratory failure
AE COPD
Acute on chronic HFpEF
Bilateral lower extremity edema left greater than right
Paroxysmal atrial fibrillation
s/p successful VALDEZ/CV 09/04/2025
Chronic Eliquis OAC
HTN
CKD 3B
h/o SPINDLE PLUMBER left renal artery
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
Nonobstructive CAD by cardiac cath 2009
Echo 07/15/2025: EF 65 to 70%, normal RV size and function, mild MAC and mild MR, mild aortic regurgitation, mild TR with PAP 43 mmHg
VALDEZ 09/04/2025: EF 55%, upper normal RV size with low normal RV function, no evidence of JUAN PABLO thrombus, mild aortic regurgitation, mild MR, moderate TR
Plan:
Continue IV diuresis. Her creatinine remains stable 1.3.
pBNP 5400 on admit, highest she has had.
Continue to monitor I's and O's, daily weights and creatinine.
Venous ultrasound negative for DVT
Her troponin was negative
She remains in sinus rhythm status post successful VALDEZ/cardioversion September 04 2025
Continue Eliquis
Consider chest ultrasound to evaluate for feasibility of thoracentesis for pleural effusions.
Continue losartan and Coreg for hypertension
Would consider stopping aspirin from a cardiac standpoint.
HPI: Patient came to the ER with SOB and orthopnea and cardiology is consulted for acute HF. Patient was seen in the cardiology office on 09/03/2025 and found to be in newly diagnosed A-fib with RVR. Patient was not in any acute distress so she
was started on Eliquis and set up for VALDEZ/CV the following day, 09/04/2025. Patient had successful VALDEZ/CV. Patient reports she saw no symptomatic improvement with cheondoism of SR. Patient reports worsening SOB in the 12 hours just prior to
admission described as being out of breath while trying to use the bathroom and then orthopnea and then resting SOB. Patient thinks that this feels similar to when she has had a COPD exacerbation before. EF was preserved on most recent echo and
VALDEZ and patient reports compliance with her Lasix 80 mg PO daily. Patient reports she has not been told before that she has CHF.
Progress Note - Business Supervisor
Subjective
Date of Service: September 10, 2025
Patient seen and examined. She remains dyspneic
Objective
Labs:
09/10/25 07:23
09/10/25 07:23
Labs
Hgb 12.3 g/dL (12.0-16.0) 09/10/25 07:23
Hct 39.4 % (37.0-47.0) 09/10/25 07:23
Plt Count 106 10^3/uL (130-400) L 09/10/25 07:23
Sodium 142 mmol/L (135-145) 09/10/25 07:23
Potassium 4.5 mmol/L (3.5-5.1) 09/10/25 07:23
BUN 30 mg/dl (7-17) H 09/10/25 07:23
Creatinine 1.3 mg/dL (0.6-1.0) H 09/10/25 07:23
Glucose 180 mg/dl (70-99) H 09/10/25 07:23
Troponins
09/09/25
11:27
Troponin I < 0.012
Vital Signs and I&O:
Vital Signs
Temp Pulse Resp BP Pulse Ox
97.5 F 65 20 153/63 96
09/10/25 11:35 09/10/25 11:35 09/10/25 11:35 09/10/25 11:35 09/10/25 11:35
Vital Signs
Temp Pulse Resp BP Pulse Ox
97.5 F 65 20 153/63 96
09/10/25 11:35 09/10/25 11:35 09/10/25 11:35 09/10/25 11:35 09/10/25 11:35
Physical Exam
Physical Exam
General: No acute distress, AAOX3
Neck: Negative JVD
Heart: Regular, Negative S3 positive S1/S2, Negative S4, No murmur
Lungs: CTA b/l, negative wheezes/rales/rhonchi
Abd: Positive BS, NT/ND, neg rebound/rigidity/guarding
Ext: Negative cyanosis/clubbing. Bilateral lower extremity edema +1 on the right, +2 on the left
Neuro: nonfocal
--- NOTE | 2025-09-10 13:42 | W.PN.HOSP.TC ---
Today's Communication/Plan
-
IV diuresis
Thoracentesis
Assessment / Plan
Assessment / Plan
Physical Exam
General: Well Developed, Well Nourished, Comfortable and Conversant
HEENT: NormoCephalic, Moist mucous membranes, Atraumatic, PERRLA, Ears Appear Normal and Oxygen (2 liters )
Respiratory: Wheezes (scattered ) and Decreased Breath Sounds; No Rales, Rhonchi, Crackles, Non Labored Respirations or Accessory Resp Muscle Use
Cardiac: S1/S2, Regular Rhythm and Peripheral Edema; No Murmur, Rub or Gallop
GI: Soft, Non Tender, Non Distended and Normal Bowel Sounds
Musculoskeletal: No Clubbing, No Cyanosis, Edema, Left Lower Extremity and Edema, Right Lower Extremity
Skin: Warm and IV/Catheter Site
Neuro: Awake, AO x 3 and Nonfocal/grossly intact
Psych: Calm
#shortness of breath and chest pressure
#Acute on chronic HFpEF
#Right pleural effusion
-Cont IV diuresis
- Admit to telemetry
- Consult Cardiology
- IV Lasix
-Thoracentesis - right side
-procal negative, stop abx - on evidence of infection
- DuoNeb QID and PRN
- stop steroids - if no improvement, can restart
- supportive care
#paroxysmal atrial fibrillation
- continue apixaban
-Coreg
#COPD
- continue Trelegy Ellipta
-Nebs standing and PRN
#hypertension
- continue carvedilol and losartan
#hyperlipidemia
- continue atorvastatin
#hypothyroidism
- continue levothyroxine
#type 2 diabetes
- AccuCheck AC & HS
- SSI
- hold glipizide
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
appears to be baseline
- monitor BMP
#Hx lung cancer
Code status: DNR
DVT prophylaxis: Eliquis
Total time spent on today's encounter was 55 minutes which included time spent in counseling the patient/family regarding diagnosis and treatment plan as listed above, goals of care, and symptom management. Case was discussed with nursing staff,
specialists, and care coordinators/case management. All labs and imaging personally reviewed by me. Remainder the time spent in detailed review of previous records, lab data, imaging, and other medical provider documentation.
Anticipated Discharge: > 48 hours
Subjective/Interval History
-
Date of Service: September 10, 2025
Crackles, wheezing still present
Objective Data
-
Labs:
Laboratory Results
09/10/25
07:23
WBC 3.8 L
Hgb 12.3
Hct 39.4
Plt Count 106 L
Sodium 142
Potassium 4.5
Chloride 101
Carbon Dioxide 35 H
BUN 30 H
Creatinine 1.3 H
Glucose 180 H
Calcium 8.0 L
Vital Signs:
Vital Signs
Temp Pulse Resp BP Pulse Ox
97.5 F 65 20 153/63 96
09/10/25 11:35 09/10/25 11:35 09/10/25 11:35 09/10/25 11:35 09/10/25 11:35
Review of Systems
-
History Source: Patient
All other systems: Not reviewed unless documented
Data Reviewed
-
Diagnostic Radiology: Report Reviewed by me
Ultrasound: Report Reviewed by me
Labs: Labs Reviewed by me
[2025-09-10 15:15] VITALS: BP 146/58
--- NOTE | 2025-09-10 15:44 | CM ---
Alert awake patient who
lives with spouse Dallin and dgt Viktoriya in a 2 story home with a stair glide to enter and one to upstairs bed and bathroom .
She is assist in all ADLs. She uses a walker.
No VN /SNF hx.
Pharmacy [facility]
PCP DR Nichols
PLAN will need PT OT for dc planning
[2025-09-10 16:50] LABS: Glucose - Point of Care 193 mg/dl (70-99)
[2025-09-10 19:15] VITALS: BP 141/66
[2025-09-10] MEDS: LIPITOR 40 MG PO (21:40)
[2025-09-10] MEDS: ASPIR LOW (ENTERIC COATED) 81 MG PO (21:40)
[2025-09-10] MEDS: ERYTHROMYCIN 0.5% OPHTHALMIC OINTMENT 1 APPLIC BOTH EYES (21:41)
[2025-09-10 22:16] LABS: Glucose - Point of Care 169 mg/dl (70-99)
[2025-09-10 22:49] VITALS: BP 138/56
[2025-09-11] VITALS (8 sets, daily range): BP systolic 56–169; BP diastolic 52–94; BMI 29.9
[2025-09-11] MEDS: SYNTHROID 150 MCG PO (06:00)
[2025-09-11] MEDS: SYMBICORT 80/4.5 MCG INHALER 2 PUFF INH ×2 (07:29→20:07)
[2025-09-11] MEDS: VENTOLIN NEBULES 2.5 MG INH ×4 (07:29→20:07)
[2025-09-11] MEDS: SPIRIVA RESPIMAT 2.5 MCG 2 PUFF INH (07:30)
[2025-09-11] MEDS: ELIQUIS 5 MG PO ×2 (07:47→21:30)
[2025-09-11] MEDS: COZAAR 50 MG PO (07:47)
[2025-09-11] MEDS: ROXICODONE 20 MG PO ×3 (07:47→21:32)
[2025-09-11] MEDS: COLACE 100 MG PO (07:47)
[2025-09-11] MEDS: RESTASIS 0.05% OPHTHALMIC EMULSION 1 DROPS BOTH EYES ×2 (07:53→21:30)
[2025-09-11] MEDS: DESENEX/MITRAZOL/ZEASORB 1 APPLIC TOPICAL ×2 (07:53→21:31)
[2025-09-11] MEDS: COREG 12.5 MG PO ×2 (07:53→21:29)
[2025-09-11] MEDS: LASIX 80 MG IV ×2 (07:55→16:34)
[2025-09-11 08:17] LABS: Glucose - Point of Care 123 mg/dl (70-99)
[2025-09-11 08:39] LABS: Hematocrit 39.6 % (37.0-47.0); Hemoglobin 11.7 g/dL (12.0-16.0); Mean Corp Hgb Conc. 29.5 g/dL (33.0-37.0); Mean Corpuscular Volume 92.3 fL (81.0-99.0); Platelet Count 124 10^3/uL (130-400); Red Cell Dist. Width 15.9 % (11.5-14.5)
[2025-09-11 09:20] LABS: Blood Urea Nitrogen 39 mg/dl (7-17); Calcium 8.3 mg/dl (8.4-10.2); Carbon Dioxide 36 mmol/L (22-30); Chloride 99 mmol/L (98-107); Estimated Creatinine Clearance 33 ml/min; Glucose 122 mg/dl (70-99); Potassium 4.1 mmol/L (3.5-5.1); Sodium 138 mmol/L (135-145); eGFR 39.80
[2025-09-11 12:13] LABS: Body Fluid Second Tech EF
--- NOTE | 2025-09-11 12:46 | PN.CDI ---
CDI
- -
CDI:
Physician Documentation Request
Admit Date: 09/09/25 16:51
Dear Doctor Liliane,
Clinical Indicators:
The diagnosis of COPD exacerbation was documented on 09/10, but is not consistently noted in subsequent documentation.
09/09 H & P, 'Patient with COPD exacerbation...'
Treatment: 09/09 Solu-Medrol 135 mg IV x1.
09/10 Decadron 4mg IV x 1
Please clarify the following:
COPD exacerbation was present on admission and is now resolved.
COPD exacerbation was ruled out
Other, please specify
Use of terms such as suspected, likely, concern for, or probable (associated with a specific diagnosis that is being evaluated, monitored, or treated as if it exists) are acceptable and can be coded in the inpatient setting, when documented at the
time of discharge.
Thank you,
DARELL Loera RN
CDI Specialist
available via tiger text
Please use your independent medical judgment in providing your response.
[2025-09-11 13:11] LABS: Glucose - Point of Care 111 mg/dl (70-99)
--- NOTE | 2025-09-11 14:08 | W.PN.HOSP.TC ---
Today's Communication/Plan
-
weaned off o2
Thora today - transudative
continue iv lasix
Assessment / Plan
Assessment / Plan
Physical Exam
General: Well Developed, Well Nourished, Comfortable and Conversant
HEENT: NormoCephalic, Moist mucous membranes, Atraumatic, PERRLA, Ears Appear Normal and Oxygen (2 liters )
Respiratory: Wheezes (scattered ) and Decreased Breath Sounds; No Rales, Rhonchi, Crackles, Non Labored Respirations or Accessory Resp Muscle Use
Cardiac: S1/S2, Regular Rhythm and Peripheral Edema; No Murmur, Rub or Gallop
GI: Soft, Non Tender, Non Distended and Normal Bowel Sounds
Musculoskeletal: No Clubbing, No Cyanosis, Edema, Left Lower Extremity and Edema, Right Lower Extremity
Skin: Warm and IV/Catheter Site
Neuro: Awake, AO x 3 and Nonfocal/grossly intact
Psych: Calm
#shortness of breath and chest pressure
#Acute on chronic HFpEF
#Acute Hypoxic Respiratory failure - now weaned off NC
#Right pleural effusion
-Cont IV diuresis
-Rt Thoracentesis today - drained 400cc yellow pleural fluid, f/u sample - Transudative
- Admit to telemetry
- Cardiology
- IV Lasix
-procal negative, stop abx - on evidence of infection
- DuoNeb QID and PRN
- stop steroids - if no improvement, can restart
- supportive care
#paroxysmal atrial fibrillation
- continue apixaban
-Coreg
#COPD
- continue Trelegy Ellipta
-Nebs standing and PRN
#hypertension
- continue carvedilol and losartan
#hyperlipidemia
- continue atorvastatin
#hypothyroidism
- continue levothyroxine
#type 2 diabetes
- AccuCheck AC & HS
- SSI
- hold glipizide
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
appears to be baseline
- monitor BMP
#Hx lung cancer
Code status: DNR
DVT prophylaxis: Eliquis
Total time spent on today's encounter was 52 minutes which included time spent in counseling the patient/family regarding diagnosis and treatment plan as listed above, goals of care, and symptom management. Case was discussed with nursing staff,
specialists, and care coordinators/case management. All labs and imaging personally reviewed by me. Remainder the time spent in detailed review of previous records, lab data, imaging, and other medical provider documentation.
Anticipated Discharge: 24 - 48 hours
Subjective/Interval History
-
Date of Service: September 11, 2025
400 cc of clear yellow pleural fluid drained from right side
Objective Data
-
Labs:
Laboratory Results
09/11/25
07:55
WBC 7.5
Hgb 11.7 L
Hct 39.6
Plt Count 124 L
Sodium 138
Potassium 4.1
Chloride 99
Carbon Dioxide 36 H
BUN 39 H
Creatinine 1.3 H
Glucose 122 H
Calcium 8.3 L
Vital Signs:
Vital Signs
Temp Pulse Resp BP Pulse Ox
97.5 F 64 18 158/67 96
09/11/25 11:30 09/11/25 11:37 09/11/25 11:37 09/11/25 11:30 09/11/25 11:37
I&O
09/10/25 09/11/25 09/12/25
06:59 06:59 06:59
Intake Total 1080 / 1080
Balance 1080 / 1080
Review of Systems
-
History Source: Patient
All other systems: Not reviewed unless documented
Data Reviewed
-
Diagnostic Radiology: Report Reviewed by me
Ultrasound: Report Reviewed by me
Labs: Labs Reviewed by me
--- NOTE | 2025-09-11 15:07 | W.PN.CARDCBS ---
Today's Communication / Plan
-
Continue IV Lasix today, hopefully transition to oral in the next 24 to 48 hours
Add Tubigrip's
Impression / Plan
-
PCP: Dr. Chyna Nichols
Cardiology: Dr. Westbrook
Oncology: Dr. Miller
Impression:
Admitted with acute hypoxic respiratory failure with AECOPD and CHF 09/09/2025
Acute hypoxic respiratory failure
AE COPD
Acute on chronic HFpEF
Bilateral lower extremity edema left greater than right
Paroxysmal atrial fibrillation
s/p successful VALDEZ/CV 09/04/2025
Chronic Eliquis OAC
HTN
CKD 3B
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
Nonobstructive CAD by cardiac cath 2009
Echo 07/15/2025: EF 65 to 70%, normal RV size and function, mild MAC and mild MR, mild aortic regurgitation, mild TR with PAP 43 mmHg
VALDEZ 09/04/2025: EF 55%, upper normal RV size with low normal RV function, no evidence of JUAN PABLO thrombus, mild aortic regurgitation, mild MR, moderate TR
Plan:
pBNP 5400 on admit, highest she has had.
Continue IV diuresis. Her creatinine remains stable 1.3.
Underwent thoracentesis 09/11 and tells me her breathing is improved following this
Would add compression stockings for LE edema
Hopefully transition to PO diuretic in the next 24-48hrs
She remains in sinus rhythm status post successful VALDEZ/cardioversion September 04 2025
Continue Eliquis
Continue losartan and Coreg for hypertension
HPI: Patient came to the ER with SOB and orthopnea and cardiology is consulted for acute HF. Patient was seen in the cardiology office on 09/03/2025 and found to be in newly diagnosed A-fib with RVR. Patient was not in any acute distress so she
was started on Eliquis and set up for VALDEZ/CV the following day, 09/04/2025. Patient had successful VALDEZ/CV. Patient reports she saw no symptomatic improvement with church of SR. Patient reports worsening SOB in the 12 hours just prior to
admission described as being out of breath while trying to use the bathroom and then orthopnea and then resting SOB. Patient thinks that this feels similar to when she has had a COPD exacerbation before. EF was preserved on most recent echo and
VALDEZ and patient reports compliance with her Lasix 80 mg PO daily. Patient reports she has not been told before that she has CHF.
Progress Note - Fish Cutter
Subjective
Date of Service: September 11, 2025
No acute overnight events. Patient tells me that lower extremity edema is better today. Breathing improved following thoracentesis.
Objective
Labs:
09/11/25 07:55
09/11/25 07:55
Labs
Hgb 11.7 g/dL (12.0-16.0) L 09/11/25 07:55
Hct 39.6 % (37.0-47.0) 09/11/25 07:55
Plt Count 124 10^3/uL (130-400) L 09/11/25 07:55
Sodium 138 mmol/L (135-145) 09/11/25 07:55
Potassium 4.1 mmol/L (3.5-5.1) 09/11/25 07:55
BUN 39 mg/dl (7-17) H 09/11/25 07:55
Creatinine 1.3 mg/dL (0.6-1.0) H 09/11/25 07:55
Glucose 122 mg/dl (70-99) H 09/11/25 07:55
Troponins
09/09/25
11:27
Troponin I < 0.012
Vital Signs and I&O:
Vital Signs
Temp Pulse Resp BP Pulse Ox
97.5 F 62 18 158/67 92
09/11/25 11:30 09/11/25 14:57 09/11/25 14:57 09/11/25 11:30 09/11/25 14:57
Vital Signs
Temp Pulse Resp BP Pulse Ox
97.5 F 62 18 158/67 92
09/11/25 11:30 09/11/25 14:57 09/11/25 14:57 09/11/25 11:30 09/11/25 14:57
Intake & Output
09/09/25 09/10/25 09/11/25 09/12/25
06:59 06:59 06:59 06:59
Intake Total 1080 / 1080
Balance 1080 / 1080
Physical Exam
Physical Exam
Gen: NAD, AAOx3
HEENT: NC/AT, sclera anicteric
CV: RRR, NL s1/s2
Lungs: No increased WOB no RA
Abd: S/ND
Ext: 1+ LE edema b/l
Skin: Warm, dry
Neuro: Non-focal
[2025-09-11] MEDS: ASPIR LOW (ENTERIC COATED) 81 MG PO (21:30)
[2025-09-11] MEDS: LIPITOR 40 MG PO (21:32)
[2025-09-11] MEDS: ERYTHROMYCIN 0.5% OPHTHALMIC OINTMENT 1 APPLIC BOTH EYES (21:33)
[2025-09-11 21:36] LABS: Glucose - Point of Care 163 mg/dl (70-99)
[2025-09-12] VITALS (9 sets, daily range): BP systolic 121–159; BP diastolic 55–83; O2SAT 92–96; BMI 29.6
[2025-09-12] MEDS: TYLENOL 650 MG PO (01:02)
[2025-09-12] MEDS: SYNTHROID 150 MCG PO (06:21)
[2025-09-12] MEDS: VENTOLIN NEBULES 2.5 MG INH ×4 (07:21→20:20)
[2025-09-12] MEDS: SPIRIVA RESPIMAT 2.5 MCG 2 PUFF INH (07:22)
[2025-09-12] MEDS: SYMBICORT 80/4.5 MCG INHALER 2 PUFF INH ×2 (07:22→20:20)
[2025-09-12 07:47] LABS: Hematocrit 38.6 % (37.0-47.0); Hemoglobin 12.0 g/dL (12.0-16.0); Mean Corp Hgb Conc. 31.1 g/dL (33.0-37.0); Mean Corpuscular Volume 89.6 fL (81.0-99.0); Platelet Count 115 10^3/uL (130-400); Red Cell Dist. Width 15.8 % (11.5-14.5)
[2025-09-12 08:22] LABS: Blood Urea Nitrogen 40 mg/dl (7-17); Calcium 8.2 mg/dl (8.4-10.2); Carbon Dioxide 37 mmol/L (22-30); Chloride 98 mmol/L (98-107); Estimated Creatinine Clearance 31 ml/min; Glucose 126 mg/dl (70-99); Potassium 3.5 mmol/L (3.5-5.1); Sodium 140 mmol/L (135-145); eGFR 36.41
[2025-09-12 08:34] LABS: Glucose - Point of Care 124 mg/dl (70-99)
[2025-09-12] MEDS: ROXICODONE 20 MG PO ×3 (10:14→21:54)
[2025-09-12] MEDS: COLACE 100 MG PO (10:14)
[2025-09-12] MEDS: COZAAR 50 MG PO (10:14)
[2025-09-12] MEDS: ELIQUIS 5 MG PO ×2 (10:14→19:45)
[2025-09-12] MEDS: RESTASIS 0.05% OPHTHALMIC EMULSION 1 DROPS BOTH EYES ×2 (10:15→19:45)
[2025-09-12] MEDS: LASIX 80 MG IV ×2 (10:15→16:36)
[2025-09-12] MEDS: DESENEX/MITRAZOL/ZEASORB 1 APPLIC TOPICAL ×2 (10:15→19:45)
[2025-09-12] MEDS: COREG 12.5 MG PO (10:15)
--- NOTE | 2025-09-12 11:17 | W.PN.CARDCBS ---
Today's Communication / Plan
-
Continues to improve. Creatinine 1.4 which overall stable.
Possible transition to oral Lasix next 24 to 48 hours.
Continue compression stockings as able
Underwent right thoracentesis 09/11 and feels improved after this
Successful ultrasound-guided thoracentesis, yielding 400 cc of clear yellow pleural fluid.
She remains in sinus rhythm status post successful VALDEZ/cardioversion September 04 2025
Continue Eliquis
Continue losartan and Coreg for hypertension
Impression / Plan
-
PCP: Dr. Chyna Nichols
Cardiology: Dr. Westbrook
Oncology: Dr. Miller
Impression:
Admitted with acute hypoxic respiratory failure with AECOPD and CHF 09/09/2025
Acute hypoxic respiratory failure
AE COPD
Acute on chronic HFpEF, pBNP 5400 on admit, highest she has had.
Bilateral lower extremity edema left greater than right
Paroxysmal atrial fibrillation
s/p successful VALDEZ/CV 09/04/2025
Chronic Eliquis OAC
HTN
CKD 3B
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
Nonobstructive CAD by cardiac cath 2009
Echo 07/15/2025: EF 65 to 70%, normal RV size and function, mild MAC and mild MR, mild aortic regurgitation, mild TR with PAP 43 mmHg
VALDEZ 09/04/2025: EF 55%, upper normal RV size with low normal RV function, no evidence of JUAN PABLO thrombus, mild aortic regurgitation, mild MR, moderate TR
Plan:
Continues to improve. Creatinine 1.4 which overall stable.
Possible transition to oral Lasix next 24 to 48 hours.
Continue compression stockings as able
Underwent right thoracentesis 09/11 and feels improved after this
Successful ultrasound-guided thoracentesis, yielding 400 cc of clear yellow pleural fluid.
She remains in sinus rhythm status post successful VALDEZ/cardioversion September 04 2025
Continue Eliquis
Continue losartan and Coreg for hypertension
Discussed with primary service
HPI: Patient came to the ER with SOB and orthopnea and cardiology is consulted for acute HF. Patient was seen in the cardiology office on 09/03/2025 and found to be in newly diagnosed A-fib with RVR. Patient was not in any acute distress so she
was started on Eliquis and set up for VALDEZ/CV the following day, 09/04/2025. Patient had successful VALDEZ/CV. Patient reports she saw no symptomatic improvement with church of SR. Patient reports worsening SOB in the 12 hours just prior to
admission described as being out of breath while trying to use the bathroom and then orthopnea and then resting SOB. Patient thinks that this feels similar to when she has had a COPD exacerbation before. EF was preserved on most recent echo and
VALDEZ and patient reports compliance with her Lasix 80 mg PO daily. Patient reports she has not been told before that she has CHF.
Progress Note - Front Maker Lockstitch
Subjective
Date of Service: September 12, 2025
Patient seen and examined. Breathing better. No chest pain
Objective
Labs:
09/12/25 07:13
09/12/25 07:13
Labs
Hgb 12.0 g/dL (12.0-16.0) 09/12/25 07:13
Hct 38.6 % (37.0-47.0) 09/12/25 07:13
Plt Count 115 10^3/uL (130-400) L 09/12/25 07:13
Sodium 140 mmol/L (135-145) 09/12/25 07:13
Potassium 3.5 mmol/L (3.5-5.1) 09/12/25 07:13
BUN 40 mg/dl (7-17) H 09/12/25 07:13
Creatinine 1.4 mg/dL (0.6-1.0) H 09/12/25 07:13
Glucose 126 mg/dl (70-99) H 09/12/25 07:13
Troponins
09/09/25
11:27
Troponin I < 0.012
Vital Signs and I&O:
Vital Signs
Temp Pulse Resp BP Pulse Ox
98.1 F 70 14 159/60 96
09/12/25 07:05 09/12/25 07:24 09/12/25 07:24 09/12/25 07:05 09/12/25 11:15
Vital Signs
Temp Pulse Resp BP Pulse Ox
98.1 F 70 14 159/60 96
09/12/25 07:05 09/12/25 07:24 09/12/25 07:24 09/12/25 07:05 09/12/25 11:15
Intake & Output
09/10/25 09/11/25 09/12/25 09/13/25
06:59 06:59 06:59 06:59
Intake Total 1080 / 1080 700 / 700
Output Total 1100 / 1100
Balance 1080 / 1080 -400 / -400
Physical Exam
Physical Exam
General: No acute distress, AAOX3
Neck: Negative JVD
Heart: Regular, Negative S3 positive S1/S2, Negative S4, No murmur
Lungs: CTA b/l, negative wheezes/rales/rhonchi
Abd: Positive BS, NT/ND, neg rebound/rigidity/guarding
Ext: Negative cyanosis/clubbing. Mild edema bilaterally
Neuro: nonfocal
[2025-09-12 13:09] LABS: Glucose - Point of Care 115 mg/dl (70-99)
--- NOTE | 2025-09-12 14:11 | W.PN.HOSP.TC ---
Today's Communication/Plan
-
cont diuresis most likely additional day
f/u cards recs
wheezing - start pred 40mg
Assessment / Plan
Assessment / Plan
Physical Exam
General: Well Developed, Well Nourished, Comfortable and Conversant
HEENT: NormoCephalic, Moist mucous membranes, Atraumatic, PERRLA, Ears Appear Normal and Oxygen (2 liters )
Respiratory: Wheezes (scattered ) and Decreased Breath Sounds; No Rales, Rhonchi, Crackles, Non Labored Respirations or Accessory Resp Muscle Use
Cardiac: S1/S2, Regular Rhythm and Peripheral Edema; No Murmur, Rub or Gallop
GI: Soft, Non Tender, Non Distended and Normal Bowel Sounds
Musculoskeletal: No Clubbing, No Cyanosis, Edema, Left Lower Extremity and Edema, Right Lower Extremity
Skin: Warm and IV/Catheter Site
Neuro: Awake, AO x 3 and Nonfocal/grossly intact
Psych: Calm
#shortness of breath and chest pressure
#Acute on chronic HFpEF
#Acute Hypoxic Respiratory failure - now weaned off NC
#Right pleural effusion
-Cont IV diuresis, anticipate switch over to oral regimen tomorrow
-Rt Thoracentesis 09/11- drained 400cc yellow pleural fluid, f/u sample - Transudative
- Admit to telemetry
- Cardiology
- IV Lasix
-procal negative, stop abx - on evidence of infection
- DuoNeb QID and PRN
- initiate prednisone 50mg for possible cpod exacerbation
- supportive care
#COPD exacerbation
-duonebs
-initiate prednisone 50mg
#paroxysmal atrial fibrillation
- continue apixaban
-Coreg
#COPD
- continue Trelegy Ellipta
-Nebs standing and PRN
#hypertension
- continue carvedilol and losartan
#hyperlipidemia
- continue atorvastatin
#hypothyroidism
- continue levothyroxine
#type 2 diabetes
- AccuCheck AC & HS
- SSI
- hold glipizide
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
appears to be baseline
- monitor BMP
#Hx lung cancer
Code status: DNR
DVT prophylaxis: Eliquis
Anticipated Discharge: Within 24 hours
Subjective/Interval History
-
Date of Service: September 12, 2025
Feels better, shortness of breath is improved, lower extreme edema is improved as well
Objective Data
-
Labs:
Laboratory Results
09/12/25
07:13
WBC 6.7
Hgb 12.0
Hct 38.6
Plt Count 115 L
Sodium 140
Potassium 3.5
Chloride 98
Carbon Dioxide 37 H
BUN 40 H
Creatinine 1.4 H
Glucose 126 H
Calcium 8.2 L
Vital Signs:
Vital Signs
Temp Pulse Resp BP Pulse Ox
98 F 63 16 159/57 96
09/12/25 11:00 09/12/25 11:00 09/12/25 11:00 09/12/25 11:00 09/12/25 11:15
I&O
09/11/25 09/12/25 09/13/25
06:59 06:59 06:59
Intake Total 1080 / 1080 700 / 700
Output Total 1100 / 1100
Balance 1080 / 1080 -400 / -400
Review of Systems
-
History Source: Patient
All other systems: Not reviewed unless documented
Data Reviewed
-
Diagnostic Radiology: Report Reviewed by me
Ultrasound: Report Reviewed by me
Labs: Labs Reviewed by me
[2025-09-12] MEDS: DELTASONE 40 MG PO (16:36)
[2025-09-12 16:45] LABS: Glucose - Point of Care 186 mg/dl (70-99)
--- NOTE | 2025-09-12 17:30 | PTCARENOTE ---
Patient HR 130-150s on telemetry, irregular rhythm. Pt asymptomatic. EKG done, shows A fib with RVR. Dr. Tilley and Dr. Momin notified. See MAR.
[2025-09-12] MEDS: LOPRESSOR 5 MG IV (18:14)
[2025-09-12] MEDS: COREG 25 MG PO (18:14)
--- NOTE | 2025-09-12 18:54 | W.PN.UPDATE ---
Update Note
Progress Note Update
Notified pt's HR 140s, RVR. EKG reviewed by TT, Afib at 130. 5mg IV lopressor stat, increased coreg to 25mg BID. Trend VS.
[2025-09-12] MEDS: KCL 40 MEQ PO (19:45)
[2025-09-12] MEDS: LOPRESSOR 2.5 MG IV (20:50)
--- NOTE | 2025-09-12 21:15 | PTCARENOTE ---
Pt remains in afib with rvr. Heart rates 120s to 140s at rest and up to 160s with activity. Pt asymptomatic. Pt med with KCL 40 meq po at 1945. Yoel RIPSAW MATCHER notified and pt med with lopressor 2.5 mg IV. heart rate currently 110s-120s at rest. Will
continue to monitor.
[2025-09-12 21:21] LABS: Glucose - Point of Care 186 mg/dl (70-99)
[2025-09-12] MEDS: LIPITOR 40 MG PO (21:54)
[2025-09-12] MEDS: ERYTHROMYCIN 0.5% OPHTHALMIC OINTMENT 1 APPLIC BOTH EYES (21:54)
[2025-09-12] MEDS: ASPIR LOW (ENTERIC COATED) 81 MG PO (21:54)
[2025-09-12 22:17] LABS: Hematocrit 45.9 % (37.0-47.0); Hemoglobin 14.2 g/dL (12.0-16.0); Mean Corp Hgb Conc. 30.9 g/dL (33.0-37.0); Mean Corpuscular Volume 87.9 fL (81.0-99.0); Platelet Count 124 10^3/uL (130-400); Red Cell Dist. Width 16.0 % (11.5-14.5)
[2025-09-12 22:43] LABS: Blood Urea Nitrogen 39 mg/dl (7-17); Calcium 8.5 mg/dl (8.4-10.2); Carbon Dioxide 35 mmol/L (22-30); Chloride 97 mmol/L (98-107); Estimated Creatinine Clearance 27 ml/min; Glucose 186 mg/dl (70-99); Magnesium 2.3 mg/dl (1.6-2.3); Potassium 4.2 mmol/L (3.5-5.1); Sodium 138 mmol/L (135-145); eGFR 31.02
--- NOTE | 2025-09-12 22:51 | W.PN.UPDATE ---
Update Note
Progress Note Update
HR 120's -140's, Afib with runs of PVC's.
received 25mg PO Coreg and Metoprolol 5mg IV at 1815, KCL 40meq POx1
@ 2049 HR remains in 120's -140's. gave Metoprolol 2.5mg IVx1, lab ordered and resulted.
Patient seen and evaluated, HR remains in 120's-150's
Lungs diminished irregular HR voiding without difficulty, afebrile.
asymptomatic
Cardizem 5mg IVx1
HR now 110-->120's. stable BP
on Apixaban
[2025-09-12] MEDS: CARDIZEM 5 MG IV (22:52)
[2025-09-13] MEDS: TYLENOL 650 MG PO (02:32)
[2025-09-13 03:00] VITALS: BP 154/78
[2025-09-13 06:00] VITALS: BMI 26.6
[2025-09-13 07:00] VITALS: BP 171/88
[2025-09-13 07:14] LABS: Hematocrit 43.3 % (37.0-47.0); Hemoglobin 13.5 g/dL (12.0-16.0); Mean Corp Hgb Conc. 31.2 g/dL (33.0-37.0); Mean Corpuscular Volume 88.4 fL (81.0-99.0); Platelet Count 124 10^3/uL (130-400); Red Cell Dist. Width 15.8 % (11.5-14.5)
[2025-09-13] MEDS: VENTOLIN NEBULES 2.5 MG INH (07:21)
[2025-09-13] MEDS: SYMBICORT 80/4.5 MCG INHALER 2 PUFF INH ×2 (07:21→19:35)
[2025-09-13] MEDS: SPIRIVA RESPIMAT 2.5 MCG 2 PUFF INH (07:21)
[2025-09-13 07:22] LABS: Glucose - Point of Care 146 mg/dl (70-99)
[2025-09-13 07:31] LABS: Blood Urea Nitrogen 38 mg/dl (7-17); Calcium 8.6 mg/dl (8.4-10.2); Carbon Dioxide 36 mmol/L (22-30); Chloride 97 mmol/L (98-107); Estimated Creatinine Clearance 29 ml/min; Glucose 164 mg/dl (70-99); Potassium 4.2 mmol/L (3.5-5.1); Sodium 137 mmol/L (135-145); eGFR 33.52
[2025-09-13] MEDS: RESTASIS 0.05% OPHTHALMIC EMULSION 1 DROPS BOTH EYES ×2 (07:52→21:14)
[2025-09-13] MEDS: COREG 25 MG PO ×2 (07:53→21:15)
[2025-09-13] MEDS: DELTASONE 40 MG PO (07:53)
[2025-09-13] MEDS: ELIQUIS 5 MG PO ×2 (07:53→21:14)
[2025-09-13] MEDS: COLACE 100 MG PO (07:53)
[2025-09-13] MEDS: COZAAR 50 MG PO (07:53)
[2025-09-13] MEDS: DESENEX/MITRAZOL/ZEASORB 1 APPLIC TOPICAL ×2 (07:53→21:18)
[2025-09-13] MEDS: ROXICODONE 20 MG PO ×3 (07:53→21:21)
[2025-09-13] MEDS: LASIX IV (09:12)
--- NOTE | 2025-09-13 10:01 | W.PN.CARDCBS ---
Addendum entered and electronically signed by Keenan Awad DO 09/13/25 10:30:
.
Addendum to Plan:
Lasix held with rising cr.
Resume lasix next 24 hrs
She is improved overall with diuresis
s/p right thoracentesis 09/11 yielding 400 cc of clear yellow pleural fluid.
Discussed with primary service.
Original Note:
Today's Communication / Plan
-
Reverted back to recurrent aFib.
Coreg increased by primary service
Start amiodarone 400 mg TID
Cont Eliquis.
Impression / Plan
-
.
PCP: Dr. Chyna Nichols
Cardiology: Dr. Westbrook
Oncology: Dr. Miller
Impression:
Admitted with acute hypoxic respiratory failure with AECOPD and CHF 09/09/2025
Acute hypoxic respiratory failure
AE COPD
Acute on chronic HFpEF, pBNP 5400 on admit, highest she has had.
Bilateral lower extremity edema left greater than right
Paroxysmal atrial fibrillation
s/p successful VALDEZ/CV 09/04/2025
Chronic Eliquis OAC
HTN
CKD 3B
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
Nonobstructive CAD by cardiac cath 2009
Echo 07/15/2025: EF 65 to 70%, normal RV size and function, mild MAC and mild MR, mild aortic regurgitation, mild TR with PAP 43 mmHg
VALDEZ 09/04/2025: EF 55%, upper normal RV size with low normal RV function, no evidence of JUAN PABLO thrombus, mild aortic regurgitation, mild MR, moderate TR
Plan:
Reverted back to recurrent aFib.
Coreg increased by primary service
Start amiodarone 400 mg TID
Cont Eliquis.
She is s/p VALDEZ/cv Sep 04 2025.
Continue losartan and Coreg for hypertension
HPI: Patient came to the ER with SOB and orthopnea and cardiology is consulted for acute HF. Patient was seen in the cardiology office on 09/03/2025 and found to be in newly diagnosed A-fib with RVR. Patient was not in any acute distress so she
was started on Eliquis and set up for VALDEZ/CV the following day, 09/04/2025. Patient had successful VALDEZ/CV. Patient reports she saw no symptomatic improvement with jainism of SR. Patient reports worsening SOB in the 12 hours just prior to
admission described as being out of breath while trying to use the bathroom and then orthopnea and then resting SOB. Patient thinks that this feels similar to when she has had a COPD exacerbation before. EF was preserved on most recent echo and
VALDEZ and patient reports compliance with her Lasix 80 mg PO daily. Patient reports she has not been told before that she has CHF.
Progress Note - Dictating Machine Typist
Subjective
Date of Service: September 13, 2025
Pt seen and examined. No chest pain or shortness of breath.
Objective
Labs:
09/13/25 06:31
09/13/25 06:31
Labs
Hgb 13.5 g/dL (12.0-16.0) 09/13/25 06:31
Hct 43.3 % (37.0-47.0) 09/13/25 06:31
Plt Count 124 10^3/uL (130-400) L 09/13/25 06:31
Sodium 137 mmol/L (135-145) 09/13/25 06:31
Potassium 4.2 mmol/L (3.5-5.1) 09/13/25 06:31
BUN 38 mg/dl (7-17) H 09/13/25 06:31
Creatinine 1.5 mg/dL (0.6-1.0) H 09/13/25 06:31
Glucose 164 mg/dl (70-99) H 09/13/25 06:31
Vital Signs and I&O:
Vital Signs
Temp Pulse Resp BP Pulse Ox
97.7 F 125 14 171/88 97
09/13/25 07:00 09/13/25 07:23 09/13/25 07:23 09/13/25 07:00 09/13/25 07:00
Vital Signs
Temp Pulse Resp BP Pulse Ox
97.7 F 125 14 171/88 97
09/13/25 07:00 09/13/25 07:23 09/13/25 07:23 09/13/25 07:00 09/13/25 07:00
Intake & Output
09/11/25 09/12/25 09/13/25 09/14/25
06:59 06:59 06:59 06:59
Intake Total 1080 / 1080 700 / 700 420 / 420 240 / 240
Output Total 1100 / 1100 700 / 700
Balance 1080 / 1080 -400 / -400 -280 / -280 240 / 240
Physical Exam
Physical Exam
General: No acute distress, AAOX3
Neck: Negative JVD
Heart: Irregularly irregular, Negative S3 positive S1/S2, Negative S4, No murmur
Lungs: CTA b/l, negative wheezes/rales/rhonchi
Abd: Positive BS, NT/ND, neg rebound/rigidity/guarding
Ext: Negative cyanosis/clubbing/edema
Neuro: nonfocal
[2025-09-13 11:00] VITALS: BP 120/57
[2025-09-13 11:40] LABS: Glucose - Point of Care 191 mg/dl (70-99)
[2025-09-13] MEDS: PACERONE 400 MG PO ×3 (11:56→21:19)
--- NOTE | 2025-09-13 13:54 | W.PN.HOSP.TC ---
Addendum entered and electronically signed by Richard Momin MD 09/13/25 14:53:
COPD exacerbation was present on admission and is now resolved
Original Note:
Today's Communication/Plan
-
Amiodarone load
Coreg increased
monitor HR
hold lasix, monitor BMP - anticipate switching to PO tomorrow
hopeful dc within 24 hours
Assessment / Plan
Assessment / Plan
Physical Exam
General: Well Developed, Well Nourished, Comfortable and Conversant
HEENT: NormoCephalic, Moist mucous membranes, Atraumatic, PERRLA, Ears Appear Normal and Oxygen (2 liters )
Respiratory: Wheezes (scattered ) and Decreased Breath Sounds; No Rales, Rhonchi, Crackles, Non Labored Respirations or Accessory Resp Muscle Use
Cardiac: S1/S2, Regular Rhythm and Peripheral Edema; No Murmur, Rub or Gallop
GI: Soft, Non Tender, Non Distended and Normal Bowel Sounds
Musculoskeletal: No Clubbing, No Cyanosis, Edema, Left Lower Extremity and Edema, Right Lower Extremity
Skin: Warm and IV/Catheter Site
Neuro: Awake, AO x 3 and Nonfocal/grossly intact
Psych: Calm
#shortness of breath and chest pressure
#Acute on chronic HFpEF
#Acute Hypoxic Respiratory failure - now weaned off NC
#Right pleural effusion
-Hold 80mg IV Lasix BID - Scr coming up
-Rt Thoracentesis 09/11- drained 400cc yellow pleural fluid, f/u sample - Transudative
- Admit to telemetry
- Cardiology
-procal negative, stop abx - on evidence of infection
- DuoNeb QID and PRN
- initiate prednisone 50mg for possible COPD exacerbation 09/12
- supportive care
#COPD exacerbation
-wheezing until steroids initiated
-duonebs PRN; stop standing as in afib with rvr
-initiated prednisone 50mg 09/12 - 5 day course will suffice
#paroxysmal atrial fibrillation
- Converted back yesterday
-s/p VALDEZ/CV Sep 04 2025
-continue apixaban
-Increased Coreg
-Added Amiodarone Load today
-stop nebulizers, wheezing has resolved
#COPD
- continue Trelegy Ellipta
-Nebs standing and PRN
#hypertension
- continue carvedilol and losartan
#hyperlipidemia
- continue atorvastatin
#hypothyroidism
- continue levothyroxine
#type 2 diabetes
- AccuCheck AC & HS
- SSI
- hold glipizide
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
appears to be baseline
- monitor BMP
#Hx lung cancer
Code status: DNR
DVT prophylaxis: Eliquis
Total time spent on today's encounter was 51 minutes which included time spent in counseling the patient/family regarding diagnosis and treatment plan as listed above, goals of care, and symptom management. Case was discussed with nursing staff,
specialists, and care coordinators/case management. All labs and imaging personally reviewed by me. Remainder the time spent in detailed review of previous records, lab data, imaging, and other medical provider documentation.
Anticipated Discharge: Within 24 hours
Subjective/Interval History
-
Date of Service: September 13, 2025
A-fib with RVR over the last 12 to 18 hours
Objective Data
-
Labs:
Laboratory Results
09/13/25
06:31
WBC 7.4
Hgb 13.5
Hct 43.3
Plt Count 124 L
Sodium 137
Potassium 4.2
Chloride 97 L
Carbon Dioxide 36 H
BUN 38 H
Creatinine 1.5 H
Glucose 164 H
Calcium 8.6
Vital Signs:
Vital Signs
Temp Pulse Resp BP Pulse Ox
98.1 F 93 14 120/57 99
09/13/25 11:00 09/13/25 11:00 09/13/25 11:00 09/13/25 11:00 09/13/25 11:00
I&O
09/12/25 09/13/25 09/14/25
06:59 06:59 06:59
Intake Total 700 / 700 420 / 420 240 / 240
Output Total 1100 / 1100 700 / 700
Balance -400 / -400 -280 / -280 240 / 240
Review of Systems
-
History Source: Patient
All other systems: Not reviewed unless documented
Data Reviewed
-
Diagnostic Radiology: Report Reviewed by me
Ultrasound: Report Reviewed by me
Labs: Labs Reviewed by me
[2025-09-13 15:00] VITALS: BP 131/64
[2025-09-13 16:18] LABS: Glucose - Point of Care 285 mg/dl (70-99)
[2025-09-13] MEDS: NOVOLOG FLEXPEN-LOW RESISTANCE 3 UNITS SC (18:38)
[2025-09-13 19:00] VITALS: BP 132/80
[2025-09-13 20:58] LABS: Glucose - Point of Care 141 mg/dl (70-99)
[2025-09-13] MEDS: ERYTHROMYCIN 0.5% OPHTHALMIC OINTMENT 1 APPLIC BOTH EYES (21:14)
[2025-09-13] MEDS: LIPITOR 40 MG PO (21:24)
[2025-09-13] MEDS: ASPIR LOW (ENTERIC COATED) 81 MG PO (21:24)
[2025-09-13 23:00] VITALS: BP 155/83
[2025-09-14 03:00] VITALS: BP 142/83
[2025-09-14] MEDS: TYLENOL 650 MG PO (04:42)
[2025-09-14 06:00] VITALS: BMI 27.1
[2025-09-14] MEDS: SYNTHROID 150 MCG PO (06:37)
[2025-09-14 06:44] LABS: Hematocrit 40.3 % (37.0-47.0); Hemoglobin 12.4 g/dL (12.0-16.0); Mean Corp Hgb Conc. 30.8 g/dL (33.0-37.0); Mean Corpuscular Volume 90.4 fL (81.0-99.0); Platelet Count 111 10^3/uL (130-400); Red Cell Dist. Width 15.8 % (11.5-14.5)
[2025-09-14 07:00] VITALS: BP 141/71
[2025-09-14 07:08] LABS: Blood Urea Nitrogen 46 mg/dl (7-17); Calcium 8.5 mg/dl (8.4-10.2); Carbon Dioxide 36 mmol/L (22-30); Chloride 98 mmol/L (98-107); Estimated Creatinine Clearance 25 ml/min; Glucose 140 mg/dl (70-99); Magnesium 2.5 mg/dl (1.6-2.3); Potassium 4.5 mmol/L (3.5-5.1); Sodium 136 mmol/L (135-145); eGFR 33.52
[2025-09-14 07:50] LABS: Glucose - Point of Care 143 mg/dl (70-99)
[2025-09-14] MEDS: SPIRIVA RESPIMAT 2.5 MCG 2 PUFF INH (07:57)
[2025-09-14] MEDS: SYMBICORT 80/4.5 MCG INHALER 2 PUFF INH ×2 (07:58→20:06)
[2025-09-14] MEDS: ROXICODONE 20 MG PO ×3 (08:41→20:16)
[2025-09-14] MEDS: PACERONE 400 MG PO ×3 (08:42→20:16)
[2025-09-14] MEDS: RESTASIS 0.05% OPHTHALMIC EMULSION 1 DROPS BOTH EYES ×2 (08:42→20:15)
[2025-09-14] MEDS: DELTASONE 40 MG PO (08:42)
[2025-09-14] MEDS: COZAAR 50 MG PO (08:43)
[2025-09-14] MEDS: COREG 25 MG PO ×2 (08:43→20:15)
[2025-09-14] MEDS: ELIQUIS 5 MG PO (08:44)
[2025-09-14] MEDS: COLACE 100 MG PO (08:44)
[2025-09-14] MEDS: NOVOLOG FLEXPEN-LOW RESISTANCE SC (08:45)
[2025-09-14] MEDS: DESENEX/MITRAZOL/ZEASORB 1 APPLIC TOPICAL ×2 (08:50→20:17)
--- NOTE | 2025-09-14 10:18 | W.PN.HOSP.TC ---
Today's Communication/Plan
-
Ambulate
Discharge tomorrow
Assessment / Plan
Assessment / Plan
#Shortness of breath and chest pressure
#Acute on chronic HFpEF
#Acute Hypoxic Respiratory failure - now weaned off NC
#Right pleural effusion
-Hold 80mg IV Lasix BID - Scr coming up
-Rt Thoracentesis 09/11- drained 400cc yellow pleural fluid, f/u sample - Transudative
-procal negative, stop abx - on evidence of infection
#COPD exacerbation
-wheezing until steroids initiated
-duonebs PRN; stop standing as in afib with rvr
-Continue prednisone 50mg for possible COPD exacerbation for 5 days through 09/17
#paroxysmal atrial fibrillation
- Converted back
-s/p VALDEZ/CV Sep 04 2025
-continue apixaban
-Increased Coreg, cardiology started amiodarone loading 09/13
-Cardiology recommends discharge on amiodarone 200 mg twice a day, with plans for outpatient cardioversion
#COPD
- continue Trelegy Ellipta
-Nebs standing and PRN
#hypertension
- continue carvedilol and losartan
#hyperlipidemia
- continue atorvastatin
#hypothyroidism
- continue levothyroxine
#type 2 diabetes
- AccuCheck AC & HS
- SSI
- hold glipizide
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
appears to be baseline
- monitor BMP
#Hx lung cancer
DVT prophylaxis: Eliquis (dose reduced due to Cr 1.5)
DNR
Updated family at bedside 09/14
Total time spent to see the patient on the floor, examine the patient, review data and lab results, discuss treatment plan with patient, nursing staff around 35 minutes.
Physical Exam
General: Well Developed, Well Nourished, Comfortable and Conversant
HEENT: NormoCephalic, Moist mucous membranes, Atraumatic, PERRLA, Ears Appear Normal and Oxygen (2 liters )
Respiratory: Wheezes (scattered ) and Decreased Breath Sounds; No Rales, Rhonchi, Crackles, Non Labored Respirations or Accessory Resp Muscle Use
Cardiac: S1/S2, Regular Rhythm and Peripheral Edema; No Murmur, Rub or Gallop
GI: Soft, Non Tender, Non Distended and Normal Bowel Sounds
Musculoskeletal: No Clubbing, No Cyanosis, Edema, Left Lower Extremity and Edema, Right Lower Extremity
Skin: Warm and IV/Catheter Site
Neuro: Awake, AO x 3 and Nonfocal/grossly intact
Psych: Calm
Anticipated Discharge: Within 24 hours
Subjective/Interval History
-
Date of Service: September 14, 2025
Patient reports her breathing is 90% improved. Denies chest pain, denies fever. No vomiting.
Objective Data
-
Labs:
Laboratory Results
09/14/25
06:17
WBC 7.9
Hgb 12.4
Hct 40.3
Plt Count 111 L
Sodium 136
Potassium 4.5
Chloride 98
Carbon Dioxide 36 H
BUN 46 H
Creatinine 1.5 H
Glucose 140 H
Calcium 8.5
Vital Signs:
Vital Signs
Temp Pulse Resp BP Pulse Ox
98.3 F 78 18 141/71 96
09/14/25 07:00 09/14/25 08:01 09/14/25 08:01 09/14/25 07:00 09/14/25 08:01
I&O
09/13/25 09/14/25 09/15/25
06:59 06:59 06:59
Intake Total 420 / 420 960 / 960
Output Total 700 / 700
Balance -280 / -280 960 / 960
--- NOTE | 2025-09-14 10:43 | W.PN.CARDCBS ---
Addendum entered and electronically signed by Giuseppe Sumner MD 09/14/25 11:41:
I saw and examined the patient.
The TODDLER TEACHER or PA's note was reviewed and I agree with the note.
Comment: General: Well developed, well nourished in NAD.
Neck: Supple, no JVD, HJR, carotids +2 B/L, no bruits bilaterally.
Heart: Non displaced PMI, irregular, no murmurs, No S3, S4, no rubs.
Lungs: Scattered rhonchi
Extremities: No clubbing, cyanosis or edema bilaterally.
Neuro: Grossly nonfocal, awake, alert and oriented x3.
She appears stable from cardiology viewpoint. She has not been out of bed yet. Discussed with nursing and patient will ambulate today. Will continue amiodarone loading while inpatient and discharge on 200 mg p.o. twice daily with plans for
outpatient cardioversion
Original Note:
Today's Communication / Plan
-
Continue amiodarone loading
Out of bed and ambulate
Impression / Plan
-
.
PCP: Dr. Chyna Nichols
Cardiology: Dr. Westbrook
Oncology: Dr. Miller
Impression:
Admitted with acute hypoxic respiratory failure with AECOPD and CHF 09/09/2025
Acute hypoxic respiratory failure
AE COPD
Acute on chronic HFpEF, pBNP 5400 on admit, highest she has had.
Bilateral lower extremity edema left greater than right
Paroxysmal atrial fibrillation
s/p successful VALDEZ/CV 09/04/2025
Chronic Eliquis OAC
HTN
CKD 3B
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
Nonobstructive CAD by cardiac cath 2009
Echo 07/15/2025: EF 65 to 70%, normal RV size and function, mild MAC and mild MR, mild aortic regurgitation, mild TR with PAP 43 mmHg
VALDEZ 09/04/2025: EF 55%, upper normal RV size with low normal RV function, no evidence of JUAN PABLO thrombus, mild aortic regurgitation, mild MR, moderate TR
Plan:
AFIB:
She is s/p VALDEZ/cv Sep 04 2025.
Reverted back to AFib 09/12/2025
-Coreg increased to 25 mg bid by primary service 09/12/2025
- Started amiodarone 400 mg TID 09/13/2025
Cont Eliquis, may need to decrease to 2.5 mg bid if creat remains elevated. Creatinine currently 1.5 and baseline appears to be 1.1-1.4.
EKG 09/14: atrial fibrillation 83 bpm, QTc 448 msec
telemetry personally reviewed: afib 80s-100
-consider repeat CV once Amio loaded, would do in outpt setting
Acute on chronic HFpEF:
-pro BNP 5400 on admission
-s/p R thoracentesis 09/11/2025 drained 400cc transudative fluid
-wt down 17 lbs since admission to current wt 168 lbs
-had been on Lasix 80 mg IV bid but stopped 09/12/2025 due to rising creat to 1.6, creatinine down to 1.5 today 09/14., Baseline creatinine 1.1-1.4.
-In outpatient setting was on Lasix 80 mg daily which had been increased by renal from 40 mg daily prior to admission
-Continue losartan and Coreg
-BPs elevated, consider uptitrate Losartan if renal fxn stabilizes
-ambulate today
HPI: Patient came to the ER with SOB and orthopnea and cardiology is consulted for acute HF. Patient was seen in the cardiology office on 09/03/2025 and found to be in newly diagnosed A-fib with RVR. Patient was not in any acute distress so she
was started on Eliquis and set up for VALDEZ/CV the following day, 09/04/2025. Patient had successful VALDEZ/CV. Patient reports she saw no symptomatic improvement with latter-day of SR. Patient reports worsening SOB in the 12 hours just prior to
admission described as being out of breath while trying to use the bathroom and then orthopnea and then resting SOB. Patient thinks that this feels similar to when she has had a COPD exacerbation before. EF was preserved on most recent echo and
VALDEZ and patient reports compliance with her Lasix 80 mg PO daily. Patient reports she has not been told before that she has CHF.
Progress Note - Roof Foreman
Subjective
Date of Service: September 14, 2025
No palpitations, lightheadedness, shortness of breath
Objective
Labs:
09/14/25 06:17
09/14/25 06:17
Labs
Hgb 12.4 g/dL (12.0-16.0) 09/14/25 06:17
Hct 40.3 % (37.0-47.0) 09/14/25 06:17
Plt Count 111 10^3/uL (130-400) L 09/14/25 06:17
Sodium 136 mmol/L (135-145) 09/14/25 06:17
Potassium 4.5 mmol/L (3.5-5.1) 09/14/25 06:17
BUN 46 mg/dl (7-17) H 09/14/25 06:17
Creatinine 1.5 mg/dL (0.6-1.0) H 09/14/25 06:17
Glucose 140 mg/dl (70-99) H 09/14/25 06:17
Vital Signs and I&O:
Vital Signs
Temp Pulse Resp BP Pulse Ox
98.3 F 78 18 141/71 96
09/14/25 07:00 09/14/25 08:01 09/14/25 08:01 09/14/25 07:00 09/14/25 08:01
Vital Signs
Temp Pulse Resp BP Pulse Ox
98.3 F 78 18 141/71 96
09/14/25 07:00 09/14/25 08:01 09/14/25 08:01 09/14/25 07:00 09/14/25 08:01
Intake & Output
09/12/25 09/13/25 09/14/25 09/15/25
06:59 06:59 06:59 06:59
Intake Total 700 / 700 420 / 420 960 / 960
Output Total 1100 / 1100 700 / 700
Balance -400 / -400 -280 / -280 960 / 960
Physical Exam
Physical Exam
GEN: No distress, awake, Ox3
HEENT: supple, anicteric, mmm
LUNGS: CTA, no wheezes/rales
CV: Irregularly irregular, no murmur
ABD: soft, BS+, NT/ND
EXT: No edema
NEURO: Gross non-focal
SKIN: No rash
[2025-09-14 11:00] VITALS: BP 114/59
[2025-09-14 11:37] LABS: Glucose - Point of Care 169 mg/dl (70-99)
[2025-09-14] MEDS: NOVOLOG FLEXPEN-LOW RESISTANCE 1 UNITS SC (12:32)
--- NOTE | 2025-09-14 14:17 | CM ---
Chart reviewed. Patient on room air.
Patient will d/c tomorrow. PT ordered, will watch for any home care needs
Plan: Home
[2025-09-14 15:00] VITALS: BP 140/71
[2025-09-14 16:53] LABS: Glucose - Point of Care 301 mg/dl (70-99)
[2025-09-14] MEDS: NOVOLOG FLEXPEN-LOW RESISTANCE 4 UNITS SC (17:43)
[2025-09-14 19:12] VITALS: BP 160/88
[2025-09-14] MEDS: ELIQUIS 2.5 MG PO (20:15)
[2025-09-14] MEDS: ASPIR LOW (ENTERIC COATED) 81 MG PO (20:16)
[2025-09-14] MEDS: LIPITOR 40 MG PO (20:17)
[2025-09-14] MEDS: ERYTHROMYCIN 0.5% OPHTHALMIC OINTMENT 1 APPLIC BOTH EYES (20:18)
[2025-09-14 21:56] LABS: Glucose - Point of Care 154 mg/dl (70-99)
[2025-09-14 22:55] VITALS: BP 160/88
[2025-09-15] MEDS: TYLENOL 650 MG PO (01:57)
[2025-09-15 04:43] VITALS: BP 139/75
[2025-09-15 06:00] VITALS: BMI 27.3
[2025-09-15] MEDS: SYNTHROID 150 MCG PO (06:40)
[2025-09-15] MEDS: SYMBICORT 80/4.5 MCG INHALER 2 PUFF INH (07:36)
[2025-09-15] MEDS: SPIRIVA RESPIMAT 2.5 MCG 2 PUFF INH (07:37)
[2025-09-15 08:06] LABS: Glucose - Point of Care 151 mg/dl (70-99)
[2025-09-15 08:08] VITALS: BP 119/56
[2025-09-15 08:31] LABS: Glucose - Point of Care 134 mg/dl (70-99)
[2025-09-15 08:47] LABS: Hematocrit 42.6 % (37.0-47.0); Hemoglobin 13.1 g/dL (12.0-16.0); Mean Corp Hgb Conc. 30.8 g/dL (33.0-37.0); Mean Corpuscular Volume 91.8 fL (81.0-99.0); Platelet Count 130 10^3/uL (130-400); Red Cell Dist. Width 15.9 % (11.5-14.5)
[2025-09-15] MEDS: NOVOLOG FLEXPEN-LOW RESISTANCE SC ×2 (08:59→12:27)
[2025-09-15] MEDS: COREG 25 MG PO (09:00)
[2025-09-15] MEDS: ELIQUIS 2.5 MG PO (09:00)
[2025-09-15] MEDS: COLACE 100 MG PO (09:00)
[2025-09-15] MEDS: COZAAR 50 MG PO (09:01)
[2025-09-15] MEDS: DELTASONE 40 MG PO (09:01)
[2025-09-15] MEDS: PACERONE 400 MG PO (09:01)
[2025-09-15] MEDS: DESENEX/MITRAZOL/ZEASORB 1 APPLIC TOPICAL (09:02)
[2025-09-15] MEDS: RESTASIS 0.05% OPHTHALMIC EMULSION 1 DROPS BOTH EYES (09:02)
[2025-09-15] MEDS: ROXICODONE 20 MG PO (09:04)
--- NOTE | 2025-09-15 09:09 | PN.CDI ---
CDI
- -
CDI:
Physician Documentation Request
Admit Date: 09/09/25 16:51
Dear Doctor Do,
Clinical Indicators:
Patient admitted with acute on chronic HFpEF.
PMH includes CKD 3b
09/09 Lasix 80 mg IV bid ordered; stopped 09/12 due to rising creatinine
Cr/GFR trend:
Laboratory Tests
09/09/25 09/11/25 09/12/25
11:27 07:55 22:11
Creatinine 1.3 H 1.3 H 1.6 H
eGFR 39.80 39.80 31.02
Please clarify which of the following accurately represents the patient's renal status:
JOSEPH on CKD 3b
CKD 3b with rise in creatinine only
Other, please specify
Criteria for JOSEPH*
1 Increase in serum creatinine by > or = to 0.3 mg/dL (> or = to 26.5 micromol/L) within 48 hours, OR
2 Increase in serum creatinine to > or = to 1.5 times baseline, which is known or presumed to have occurred within 7 days, OR
3 Urine volume < 0.5 nL/kg/hour for six hours
Stages of Chronic Kidney Disease*
Level Description GFR
G1 Normal or High >90
G2 Mildly decreased 60-89
G3a Mildly to moderately decreased 45-59
G3b Moderately to severely decreased 30-44
G4 Severely decreased 15-29
G5 Kidney failure <15
Use of terms such as suspected, likely, concern for, or probable (associated with a specific diagnosis that is being evaluated, monitored, or treated as if it exists) are acceptable and can be coded in the inpatient setting, when documented at the
time of discharge.
Thank you,
DARELL Loera RN
CDI Specialist
available via tiger text
Please use your independent medical judgment in providing your response.
*Source: Kidney Disease: Improving Global Outcomes (KDIGO) 2012
--- NOTE | 2025-09-15 09:12 | W.PN.HOSP.TC ---
Today's Communication/Plan
-
Cleared by cardiology for discharge today
Assessment / Plan
Assessment / Plan
#Shortness of breath and chest pressure
#Acute on chronic HFpEF
#Acute Hypoxic Respiratory failure - now weaned off NC
#Right pleural effusion
-Hold 80mg IV Lasix BID - Scr coming up
-Rt Thoracentesis 09/11- drained 400cc yellow pleural fluid, f/u sample - Transudative
-procal negative, stopped abx - on evidence of infection
- Medically stable and cleared by cardiology for discharge on Lasix 80 mg po daily
- Follow-up with cardiology in the office
#COPD exacerbation
-wheezing until steroids initiated
-duonebs PRN; stop standing as in afib with rvr
-Continue prednisone 50mg for possible COPD exacerbation for 6 days through 09/17
- Follow-up with PCP in 1 week
#paroxysmal atrial fibrillation
- Converted back
-s/p VALDEZ/CV Sep 04 2025
-Apixaban dose decreased to 2.5 mg twice a day due to renal function of 1.5 and age > 80
-Increased Coreg, cardiology started amiodarone loading 09/13
-Cardiology recommends discharge on amiodarone 200 mg twice a day x 4 weeks, then 200 mg daily
#COPD
- continue Trelegy Ellipta
-Nebs standing and PRN
#hypertension
- continue carvedilol and losartan
#hyperlipidemia
- continue atorvastatin
#hypothyroidism
- continue levothyroxine
#type 2 diabetes
- AccuCheck AC & HS
- SSI
- hold glipizide
#JOSEPH on CKD 3b with only right kidney functioning
eliquis dose reduced to 2.5 mg BID since Cr 1.5
#Hx lung cancer
DVT prophylaxis: Eliquis (dose reduced due to Cr 1.5)
DNR
Updated family at bedside 09/14
Physical Exam
General: Well Developed, Well Nourished, Comfortable and Conversant
HEENT: NormoCephalic, Moist mucous membranes, Atraumatic, PERRLA, Ears Appear Normal and Oxygen (2 liters )
Respiratory: Wheezes (scattered ) and Decreased Breath Sounds; No Rales, Rhonchi, Crackles, Non Labored Respirations or Accessory Resp Muscle Use
Cardiac: S1/S2, Regular Rhythm and Peripheral Edema; No Murmur, Rub or Gallop
GI: Soft, Non Tender, Non Distended and Normal Bowel Sounds
Musculoskeletal: No Clubbing, No Cyanosis, Edema, Left Lower Extremity and Edema, Right Lower Extremity
Skin: Warm and IV/Catheter Site
Neuro: Awake, AO x 3 and Nonfocal/grossly intact
Psych: Calm
Anticipated Discharge: Today
Subjective/Interval History
-
Date of Service: September 15, 2025
Patient ambulated around the hallways. Denies shortness of breath. Denies chest pain. No fever, no vomiting.
Objective Data
-
Labs:
Laboratory Results
09/15/25
08:09
WBC 8.3
Hgb 13.1
Hct 42.6
Plt Count 130
Sodium Pending
Potassium Pending
Chloride Pending
Carbon Dioxide Pending
BUN Pending
Creatinine Pending
Glucose Pending
Calcium Pending
Vital Signs:
Vital Signs
Temp Pulse Resp BP Pulse Ox
97.8 F 98 12 119/56 95
09/15/25 08:08 09/15/25 09:00 09/15/25 08:08 09/15/25 09:00 09/15/25 08:08
I&O
09/14/25 09/15/25 09/16/25
06:59 06:59 06:59
Intake Total 960 / 960 900 / 900
Balance 960 / 960 900 / 900
[2025-09-15 09:20] LABS: Blood Urea Nitrogen 49 mg/dl (7-17); Calcium 8.2 mg/dl (8.4-10.2); Carbon Dioxide 32 mmol/L (22-30); Chloride 100 mmol/L (98-107); Estimated Creatinine Clearance 25 ml/min; Glucose 129 mg/dl (70-99); Potassium 4.5 mmol/L (3.5-5.1); Sodium 136 mmol/L (135-145); eGFR 33.52
[2025-09-15 10:17] VITALS: BP 163/87; PULSE 94; O2SAT 91
--- NOTE | 2025-09-15 11:33 | W.PN.CARDCBS ---
Addendum entered and electronically signed by Giuseppe Sumner MD 09/15/25 12:11:
I saw and examined the patient.
The HYDRO PLANT TECHNICIAN or PA's note was reviewed and I agree with the note.
Comment: General: Well developed, well nourished in NAD.
Neck: Supple, no JVD, HJR, carotids +2 B/L, no bruits bilaterally.
Heart: Non displaced PMI, irregular, no murmurs, No S3, S4, no rubs.
Lungs: Scattered rhonchi
Extremities: No clubbing, cyanosis or edema bilaterally.
Neuro: Grossly nonfocal, awake, alert and oriented x3.
Stable cardiology status for discharge. She is ambulating per nursing. Discharge on Lasix 80 mg daily and amiodarone 200 mg p.o. twice daily. Follow-up will be arranged. Discussed with primary service. Might consider outpatient cardioversion.
Original Note:
Today's Communication / Plan
-
po lasix 80mg daily
amiodarone 200mg BID x4 weeks then 200mg daily
coreg 25mg BID
eliquis 2.5mg BID
cozaar 50mg daily
CMP/proBNP in 1 week upon DC
ok for DC to home today
OP cardiac follow up arranged
Impression / Plan
-
PCP: Dr. Chyna Nichols
Cardiology: Dr. Westbrook
Oncology: Dr. Miller
Impression:
Admitted with acute hypoxic respiratory failure with AECOPD and CHF 09/09/2025
Acute hypoxic respiratory failure
AE COPD
Acute on chronic HFpEF, pBNP 5400 on admit, highest she has had.
Bilateral lower extremity edema left greater than right
Paroxysmal atrial fibrillation
s/p successful VALDEZ/CV 09/04/2025
Chronic Eliquis OAC
HTN
CKD 3B
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
Nonobstructive CAD by cardiac cath 2009
Echo 07/15/2025: EF 65 to 70%, normal RV size and function, mild MAC and mild MR, mild aortic regurgitation, mild TR with PAP 43 mmHg
VALDEZ 09/04/2025: EF 55%, upper normal RV size with low normal RV function, no evidence of JUAN PABLO thrombus, mild aortic regurgitation, mild MR, moderate TR
Plan:
-she is feeling much improved. plan for DC to home today
-s/p VALDEZ/CV 09/04/25 and reverted back to afib 09/12/25. no longer on tele
-coreg increased to 25mg BID this admit
-started on amiodarone this admission. thus far has received 2800mg load. plan for 200mg BID dosing for 4 weeks upon DC then decrease to 200mg daily
-eliquis dose decreased to 2.5mg BID given age and Cr >1.5 for last 72+ hours. also on asa as OP, would consider stopping to reduce bleeding risk if no clear indication
-can consider for repeat CT in OP setting
-was also diuresed this admission and s/p R thora for 400cc, transudative 09/11. weight 168 pounds, felt to be new dry weight. plan for po lasix 80mg daily upon DC, which had been increased by renal from 40mg daily as of 08/27
-continue OP losartan 50mg daily
-OP cardiac follow up arranged
-ok for DC to home today
-d/w nursing, hospitalist
HPI: Patient came to the ER with SOB and orthopnea and cardiology is consulted for acute HF. Patient was seen in the cardiology office on 09/03/2025 and found to be in newly diagnosed A-fib with RVR. Patient was not in any acute distress so she
was started on Eliquis and set up for VALDEZ/CV the following day, 09/04/2025. Patient had successful VALDEZ/CV. Patient reports she saw no symptomatic improvement with yazidi of SR. Patient reports worsening SOB in the 12 hours just prior to
admission described as being out of breath while trying to use the bathroom and then orthopnea and then resting SOB. Patient thinks that this feels similar to when she has had a COPD exacerbation before. EF was preserved on most recent echo and
VALDEZ and patient reports compliance with her Lasix 80 mg PO daily. Patient reports she has not been told before that she has CHF.
Progress Note - Disability Examiner
Subjective
Date of Service: September 15, 2025
feeling well. eager for DC
Objective
Labs:
09/15/25 08:09
09/15/25 08:09
Labs
Hgb 13.1 g/dL (12.0-16.0) 09/15/25 08:09
Hct 42.6 % (37.0-47.0) 09/15/25 08:09
Plt Count 130 10^3/uL (130-400) 09/15/25 08:09
Sodium 136 mmol/L (135-145) 09/15/25 08:09
Potassium 4.5 mmol/L (3.5-5.1) 09/15/25 08:09
BUN 49 mg/dl (7-17) H 09/15/25 08:09
Creatinine 1.5 mg/dL (0.6-1.0) H 09/15/25 08:09
Glucose 129 mg/dl (70-99) H 09/15/25 08:09
Vital Signs and I&O:
Vital Signs
Temp Pulse Resp BP Pulse Ox
97.8 F 98 12 119/56 95
09/15/25 08:08 09/15/25 09:00 09/15/25 08:08 09/15/25 09:00 09/15/25 08:08
Vital Signs
Temp Pulse Resp BP Pulse Ox
97.8 F 98 12 119/56 95
09/15/25 08:08 09/15/25 09:00 09/15/25 08:08 09/15/25 09:00 09/15/25 08:08
Intake & Output
1109/14/25 09/15/25 09/16/25
07:59 07:59 07:59 07:59
Intake Total 420 / 420 960 / 960 900 / 900
Output Total 700 / 700
Balance -280 / -280 960 / 960 900 / 900
Physical Exam
Physical Exam
GEN: No distress, awake, alert, oriented x3. sitting in chair
HEENT: supple, anicteric, mmm, eomi
LUNGS: Few crackles LLB, no wheezes
CV: Irreg, S1/S2, no murmur
ABD: soft, BS+, NT/ND
EXT: No cyanosis, clubbing, edema
NEURO: Gross non-focal
SKIN: Warm, pink, dry. No rash
--- NOTE | 2025-09-15 11:38 | W.DCSUMMARY ---
Discharge Summary
Discharge Data
Date of Admission: 09/09/25
Date of Discharge: 09/15/25
-
Pending Results: No
Hospital Course
Discharge diagnosis:
Acute hypoxic respiratory failure
Acute on chronic heart failure with a preserved ejection fraction
Right pleural effusion
Mild acute chronic obstructive pulmonary disease exacerbation
Paroxysmal atrial fibrillation on Eliquis
Essential hypertension
Hypothyroidism
Type 2 diabetes
Acute kidney injury superimposed on stage IIIb kidney disease with only right functioning kidney
Consults: Cardiology
Procedures:
09/11/2025, right thoracentesis draining 400 cc of clear yellow fluid
Hospital course:
89-year-old female past medical history of recently diagnosed atrial fibrillation on 09/04 status post VALDEZ/cardioversion started on Eliquis, CKD 3B, CAD, HFpEF, COPD, lung cancer on Keytruda, diabetes, and TIA who was admitted for acute hypoxic
respiratory failure secondary to acute on chronic heart failure with a preserved ejection fraction. She also had a right pleural effusion. She was seen in conjunction with cardiology, and diuresed with IV Lasix. She had a right pleural effusion,
and had a thoracentesis draining 400 cc of clear yellow fluid.
Patient also had mild acute on chronic COPD exacerbation. She was treated with oral prednisone and bronchodilators.
Patient's hospital course was complicated by acute kidney injury superimposed on stage IIIb chronic kidney disease. Her IV Lasix was held. Her creatinine was monitored, and was 1.5 on the day of discharge. Her Eliquis dose was reduced to 2.5 mg
twice a day based on her kidney function.
Patient diuresed well. She lost 8 kg of fluid weight, and was successfully weaned off of oxygen. She is medically stable and cleared by cardiology for discharge on Lasix 80 mg p.o. daily. She will also be discharged on prednisone 40 mg p.o. daily
for 2 more days. She needs to follow-up with her PCP in 1 week, and cardiology in the office as scheduled.
Disposition: Home with home care
Discharge planning: Required 39 minutes
Discharge Plan
-
Patient Disposition: Home with Home Care
Discharge Diagnosis/Procedures: Hypoxia, heart failure with a preserved ejection fraction, right pleural effusion status postthoracentesis, mild chronic obstructive pulmonary disease exacerbation, paroxysmal atrial fibrillation
Condition: Good
Diet: 2 Gram Sodium and Diabetic, Carb Controlled
Activity: As tolerated
Driving Restrictions: As prior to admission
Blood Work: CMP/proBNP in 1 week
Specialty Instructions: Weigh Daily- Call MD for wt gain/loss 3 lbs overnight/5 lbs in 1 week
Activity Restrictions/Additional Instructions:
Based on your kidney function, it is recommended that you now take Eliquis/apixaban 2.5 mg twice a day (versus 5 mg twice a day previously).
Cardiology recommends you take amiodarone 200 mg twice a day for 4 weeks, then daily.
Please follow-up with cardiology in the office as scheduled, as well as your PCP in 1 week.
Instructions: *[facility] Heart Failure Instructions
Referrals:
Marah Li PA-C [Specified Professional Personl, Cardiology] - 09/28/25 10:40 am
Referral Note: You have a cardiology follow-up at the [place] office. Please call with questions
Chyna Nichols DO [Family Provider, Family Practice] - in one week
Additional Discharge Medication Instructions: Continue amiodarone 200mg twice daily for 4 weeks then decrease to 200mg daily!
Prescriptions:
New
carvedilol 25 mg Tablet
25 mg PO BID Qty: 60 0RF
prednisone 20 mg Tablet
40 mg PO DAILY 2 Days Qty: 4 0RF
Eliquis 2.5 mg Tablet
2.5 mg PO BID Qty: 60 0RF
furosemide [Lasix] 80 mg tablet
80 mg PO DAILY Qty: 30 0RF
amiodarone 200 mg tablet
200 mg PO BID Qty: 60 0RF
Continued
atorvastatin 40 MG tablet
40 mg PO HS
levothyroxine [Synthroid] 150 mcg Tablet
150 mcg PO MOTUWETHFRSA@0600
glipizide 5 mg Tablet
5 mg PO QPM
oxycodone 20 mg Tablet
20 mg PO TID
multivitamin Tablet
1 tab PO DAILY
docusate sodium [Colace] 100 mg Capsule
100 mg PO DAILY
aspirin 81 mg Tablet,Delayed Release (Dr/Ec)
81 mg PO HS
cyclosporine 0.05 % dropperette
1 drp BOTH EYES BID
Trelegy Ellipta 100-62.5-25 mcg blister with device
1 inh INHALATION R DAILY
losartan 50 mg Tablet
50 mg PO DAILY Qty: 30 0RF
erythromycin 5 mg/gram (0.5 %) ointment
1 applic BOTH EYES HS
Artificial Tears (PF) Dropperette
1 drp BOTH EYES QIDPRN PRN (Reason: dry eyes)
miconazole nitrate [Miconazorb AF] 2 % powder
1 applic topical BID
Discontinued
furosemide 40 mg Tablet
40 mg PO DAILY
carvedilol 12.5 mg tablet
12.5 mg PO BID
Eliquis 5 mg Tablet
5 mg PO BID
Discharge Orders:
Discharge Patient (As Directed); Ordered 09/15/25
Ordered By: Joe Noyola
Discharge Date and Time
Discharge Date/Time: 09/15/25 13:41
Print Language: PANAMANIAN
[2025-09-15 11:41] LABS: Glucose - Point of Care 172 mg/dl (70-99)
[2025-09-15 12:00] VITALS: BP 103/51
--- NOTE | 2025-09-15 12:25 | CM ---
Patient will d/c home today. Patient agreeable to home PT per therapy recommendation.
Patient chose [facility], referral made in [facility]
IMM verbally reviewed, copy provided, copy on chart
Spouse will transport
[facility]

Plan: Home w/ [facility]
--- NOTE | 2025-09-16 09:18 | W.HF.CON ---
Heart Failure
- LV Function
Left ventricular function study result: LV Ejection fraction >/= 50% (ECHO 09/04/25)
Ejection Fraction Percentage: 55-60
- ARNI
Patient already on ARNI: No
Heart Failure ARNI Not Indicated: LV Ejection Fraction >/= 40%
- ACEI/ARB
Patient already on ACEI/ARB: Yes
- Beta Killian
Patient already on Evidence Based Beta Killian: Yes
- Mineralocorticord Receptor Antagonist
Patient already on MRA: No
Heart Failure MRA Not Indicated: LV Ejection Fraction > 40%
- SGLT-2 Inhibitor
Patient already on SGLT-2 Inhibitor: No
Heart Failure SGLT-2 Inhibitor Not Indicated: LV Ejection Fraction >40%
- Afib Anticoagulation
Patient already on Anticoagulation for Afib: Yes
- NYHA CHF Classification
NYHA CHF Classification Level: Class III - Symptoms w/ min exertion, interferes w/ nml daily activity
- ACC/AHA Stage
ACC/AHA Stage: Stage C: Symptomatic Heart Failure
== END 2025-09-15 13:41 | disposition home health service (06) | DRG 291 ==
LOC: 4 WEST ACU 16:51
PROVIDERS: Emergency Medicine; Internal Medicine; Nurse Practitioner Family; Nurse Practitioner Gerontology; Physician Assistant; Radiology Vascular & Interventional Radiology; ADMITTING PHYSICIAN Hospitalist; ATTENDING PHYSICIAN Family Medicine; CONSULT PHYSICIAN Nuclear Medicine Nuclear Cardiology; EMERGENCY PHYSICIAN Emergency Medicine; FAMILY PHYSICIAN Family Medicine
PROC: 0W993ZZ Drainage of Right Pleural Cavity, Percutaneous Approach (ICD-10-PCS; 2025-09-11)
DX: I13.0 Hypertensive heart and chronic kidney disease with heart failure and stage 1 through stage 4 chronic kidney disease, or unspecified chronic kidney disease (principal); I50.33 Acute on chronic diastolic (congestive) heart failure; J96.01 Acute respiratory failure with hypoxia; J44.1 Chronic obstructive pulmonary disease with (acute) exacerbation; N17.9 Acute kidney failure, unspecified; N18.32 Chronic kidney disease, stage 3b; I48.0 Paroxysmal atrial fibrillation; Z79.890 Hormone replacement therapy; Z79.84 Long term (current) use of oral hypoglycemic drugs; E11.22 Type 2 diabetes mellitus with diabetic chronic kidney disease; Z85.118 Personal history of other malignant neoplasm of bronchus and lung; Z66 Do not resuscitate; M54.16 Radiculopathy, lumbar region; Z87.891 Personal history of nicotine dependence; E89.0 Postprocedural hypothyroidism; E78.00 Pure hypercholesterolemia, unspecified; I25.10 Atherosclerotic heart disease of native coronary artery without angina pectoris; Z79.01 Long term (current) use of anticoagulants; Z79.899 Other long term (current) drug therapy; Z86.711 Personal history of pulmonary embolism; Z86.73 Personal history of transient ischemic attack (TIA), and cerebral infarction without residual deficits; F32.A Depression, unspecified; F41.9 Anxiety disorder, unspecified; Z11.52 Encounter for screening for COVID-19
CPT/HCPCS: 32555; 71045; 71046; 80048; 80053; 82150; 82945; 82962; 83615; 83735; 83880; 83986; 84145; 84157; 84484; 85025; 85027; 87502; 87811; 89051; 93005; 93970; 94640; 96374; 97162; 99285

== ENCOUNTER → 2025-09-18 09:20 | Outpatient (REF) | payer MEDICARE, OTHER, SELFPAY ==
[2025-09-18 10:09] LABS: Hematocrit 42.3 % (37.0-47.0); Hemoglobin 13.1 g/dL (12.0-16.0); Mean Corp Hgb Conc. 31.0 g/dL (33.0-37.0); Mean Corpuscular Volume 91.2 fL (81.0-99.0); Nucleated Red Blood Cells % 0 %; Platelet Count 142 10^3/uL (130-400); Red Cell Dist. Width 16.1 % (11.5-14.5)
[2025-09-18 11:09] LABS: ALT (SGPT) 20 U/L (0-35); AST (SGOT) 21 U/L (14-36); Albumin 3.7 g/dl (3.5-5.0); Alkaline Phosphatase 76 U/L (38-126); Blood Urea Nitrogen 50 mg/dl (7-17); Calcium 8.4 mg/dl (8.4-10.2); Carbon Dioxide 32 mmol/L (22-30); Chloride 100 mmol/L (98-107); Glucose 103 mg/dl (70-99); Potassium 4.6 mmol/L (3.5-5.1); Sodium 136 mmol/L (135-145); Total Protein 6.7 g/dl (6.3-8.2); eGFR 33.52
== END ==
LOC: REG 09:20
PROVIDERS: ATTENDING PHYSICIAN Internal Medicine Hematology & Oncology; FAMILY PHYSICIAN Family Medicine; OTHER PHYSICIAN Internal Medicine Interventional Cardiology
DX: R91.1 Solitary pulmonary nodule (principal); C34.11 Malignant neoplasm of upper lobe, right bronchus or lung; I50.32 Chronic diastolic (congestive) heart failure
CPT/HCPCS: 36415; 80053; 83880; 84443; 85025

== ENCOUNTER → 2025-09-25 09:28 | Outpatient (REF) | payer MEDICARE, OTHER, SELFPAY ==
[2025-09-25 12:02] LABS: ALT (SGPT) 40 U/L (0-35); AST (SGOT) 31 U/L (14-36); Albumin 3.5 g/dl (3.5-5.0); Alkaline Phosphatase 110 U/L (38-126); Blood Urea Nitrogen 37 mg/dl (7-17); Calcium 8.1 mg/dl (8.4-10.2); Carbon Dioxide 34 mmol/L (22-30); Chloride 103 mmol/L (98-107); Glucose 80 mg/dl (70-99); HDL Cholesterol 43 mg/dl; LDL Cholesterol, Calculated 49 mg/dl; Potassium 4.4 mmol/L (3.5-5.1); Sodium 138 mmol/L (135-145); Total Protein 6.1 g/dl (6.3-8.2); Very Low Density Lipoprotein 19 mg/dl (0-30); eGFR 28.84
[2025-09-25 12:14] LABS: Glycohemoglobin (HgbA1c) 6.5 % (4.0-5.9)
[2025-09-25 12:29] LABS: TSH 3.77 uIU/ml (0.47-4.68)
[2025-09-25 15:04] LABS: Microalbumin, Random Urine 9.5 mg/dl (0.6-1.7)
== END ==
LOC: REG 09:28
PROVIDERS: ATTENDING PHYSICIAN Specialist; FAMILY PHYSICIAN Internal Medicine
DX: N18.31 Chronic kidney disease, stage 3a (principal); E03.9 Hypothyroidism, unspecified; E66.9 Obesity, unspecified; E11.9 Type 2 diabetes mellitus without complications
CPT/HCPCS: 36415; 80053; 80061; 82043; 82570; 83036; 84443

== ENCOUNTER → 2025-10-02 09:28 | Outpatient (REF) | payer MEDICARE, OTHER, SELFPAY ==
[2025-10-02 11:01] LABS: Blood Urea Nitrogen 39 mg/dl (7-17); Calcium 8.3 mg/dl (8.4-10.2); Carbon Dioxide 33 mmol/L (22-30); Chloride 105 mmol/L (98-107); Glucose 83 mg/dl (70-99); Potassium 4.2 mmol/L (3.5-5.1); Sodium 139 mmol/L (135-145); eGFR 25.24
== END ==
LOC: REG 09:28
PROVIDERS: ATTENDING PHYSICIAN Specialist; FAMILY PHYSICIAN Family Medicine
DX: N18.31 Chronic kidney disease, stage 3a (principal)
CPT/HCPCS: 36415; 80048

== ENCOUNTER 2025-10-09 09:56 | Outpatient (RCR) | payer MEDICARE, OTHER, SELFPAY | END 2025-10-09 23:59 | disposition home or self-care (01) | LOC: RPT 09:56 | PROVIDERS: ATTENDING PHYSICIAN Family Medicine | DX: I89.0 Lymphedema, not elsewhere classified (principal); Z73.6 Limitation of activities due to disability; C34.90 Malignant neoplasm of unspecified part of unspecified bronchus or lung | CPT/HCPCS: 97163; 97530 ==

== ENCOUNTER → 2025-10-10 08:27 | Outpatient (REF) | payer MEDICARE, OTHER, SELFPAY ==
[2025-10-10 09:28] LABS: Hematocrit 38.7 % (37.0-47.0); Hemoglobin 11.7 g/dL (12.0-16.0); Mean Corp Hgb Conc. 30.2 g/dL (33.0-37.0); Mean Corpuscular Volume 90.4 fL (81.0-99.0); Nucleated Red Blood Cells % 0 %; Platelet Count 106 10^3/uL (130-400); Red Cell Dist. Width 18.1 % (11.5-14.5)
[2025-10-10 09:50] LABS: ALT (SGPT) 16 U/L (0-35); AST (SGOT) 25 U/L (14-36); Albumin 3.4 g/dl (3.5-5.0); Alkaline Phosphatase 91 U/L (38-126); Blood Urea Nitrogen 40 mg/dl (7-17); Calcium 8.1 mg/dl (8.4-10.2); Carbon Dioxide 34 mmol/L (22-30); Chloride 104 mmol/L (98-107); Glucose 103 mg/dl (70-99); Potassium 3.9 mmol/L (3.5-5.1); Sodium 141 mmol/L (135-145); Total Protein 6.1 g/dl (6.3-8.2); eGFR 26.93
== END ==
LOC: REG 08:27
PROVIDERS: ATTENDING PHYSICIAN Internal Medicine Hematology & Oncology; FAMILY PHYSICIAN Family Medicine
DX: R91.1 Solitary pulmonary nodule (principal); C34.11 Malignant neoplasm of upper lobe, right bronchus or lung; E03.9 Hypothyroidism, unspecified
CPT/HCPCS: 36415; 80053; 84439; 84443; 85025

== ENCOUNTER → 2025-10-19 10:15 | Outpatient (REF) | payer MEDICARE, OTHER, SELFPAY ==
[2025-10-19 12:11] LABS: Blood Urea Nitrogen 38 mg/dl (7-17); Calcium 8.5 mg/dl (8.4-10.2); Carbon Dioxide 34 mmol/L (22-30); Chloride 100 mmol/L (98-107); Glucose 99 mg/dl (70-99); Potassium 3.9 mmol/L (3.5-5.1); Sodium 139 mmol/L (135-145); eGFR 26.93
== END ==
LOC: REG 10:15
PROVIDERS: ATTENDING PHYSICIAN Specialist; FAMILY PHYSICIAN Family Medicine
DX: N18.31 Chronic kidney disease, stage 3a (principal)
CPT/HCPCS: 36415; 80048

== ENCOUNTER 2025-10-26 06:41 | Day surgery (SDC) | payer MEDICARE, OTHER, SELFPAY ==
--- NOTE | 2025-10-26 08:57 | ITS.CL.CARDI ---
[employer] Specialist - Cardioversion
Cardioversion
Procedure Report:
Date of Procedure: Oct 26 2025
Procedure: Cardioversion
Indication: Symptomatic atrial fibrillation
Performing Physician: Keenan Awad DO, FACC
Technique: The patient was brought to the holding area. Signed informed consent was obtained. A time out was called and performed. The patient was anesthetized by the anesthesia service. Anticoagulation status was reviewed and appropriate. R2 pads
were placed anteriorly and posteriorly. A 200 J synchronized biphasic shock restored normal sinus rhythm without significant bradycardia. There were no complications.
Conclusion: Uncomplicated cardioversion from atrial fibrillation to sinus rhythm.
Recommendation: Routine post cardioversion care. 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
== END 2025-10-26 09:45 | disposition home or self-care (01) ==
LOC: CATH 06:41
PROVIDERS: ATTENDING PHYSICIAN Nuclear Medicine Nuclear Cardiology; FAMILY PHYSICIAN Family Medicine; OTHER PHYSICIAN Internal Medicine Interventional Cardiology
DX: I48.91 Unspecified atrial fibrillation (principal); Z79.01 Long term (current) use of anticoagulants; Z79.82 Long term (current) use of aspirin; Z79.890 Hormone replacement therapy; Z79.899 Other long term (current) drug therapy
CPT/HCPCS: 92960; 93005

== ENCOUNTER → 2025-10-31 09:01 | Outpatient (REF) | payer MEDICARE, OTHER, SELFPAY ==
[2025-10-31 10:06] LABS: Hematocrit 36.3 % (37.0-47.0); Hemoglobin 11.4 g/dL (12.0-16.0); Mean Corp Hgb Conc. 31.4 g/dL (33.0-37.0); Mean Corpuscular Volume 89.6 fL (81.0-99.0); Nucleated Red Blood Cells % 0 %; Platelet Count 126 10^3/uL (130-400); Red Cell Dist. Width 18.5 % (11.5-14.5)
[2025-10-31 10:28] LABS: ALT (SGPT) 14 U/L (0-35); AST (SGOT) 24 U/L (14-36); Albumin 3.7 g/dl (3.5-5.0); Alkaline Phosphatase 85 U/L (38-126); Blood Urea Nitrogen 40 mg/dl (7-17); Calcium 8.5 mg/dl (8.4-10.2); Carbon Dioxide 33 mmol/L (22-30); Chloride 104 mmol/L (98-107); Glucose 108 mg/dl (70-99); Potassium 4.4 mmol/L (3.5-5.1); Sodium 142 mmol/L (135-145); Total Protein 6.4 g/dl (6.3-8.2); eGFR 25.08
== END ==
LOC: REG 09:01
PROVIDERS: ATTENDING PHYSICIAN Internal Medicine Hematology & Oncology; FAMILY PHYSICIAN Family Medicine
DX: R91.1 Solitary pulmonary nodule (principal); C34.11 Malignant neoplasm of upper lobe, right bronchus or lung; E03.9 Hypothyroidism, unspecified
CPT/HCPCS: 36415; 80053; 84439; 84443; 85025